=== PATIENT | male | born 1965 | race Caucasian/White ===

== ENCOUNTER 2017-03-15 09:29 | Inpatient (IN) ==
[2017-03-15 10:24] LABS: Mean Cell Volume 101.8 fL (80.0-100.0); Mean Corpuscular Hemoglobin 33.6 pg (26.0-34.0); Platelet Count 408 K/mcL (140-440); RBC 3.38 M/mcL (4.50-5.90); Red Cell Distribution Width 20.5 % (11.5-14.5)
--- NOTE | 2017-03-15 10:46 | Emergency Department Note ---
Fever HPI - General Chief Complaint: Fever Stated Complaint: fever Time Seen by Provider: 03/15/17 09:46 Source: patient, family, EMS Mode of arrival: EMS Limitations: physical limitation - History of Present Illness HPI Narrative: 51-year-old male patient of Dr. Guadarrama. Complaining of weakness since the last 24 hours. He was supposed to have dialysis this morning at 4 AM however he was too weak to go to dialysis. Denies any cough, denies sore throat no nasal congestion. Denies any urinary symptoms of urgency frequency or dysuria patient denies nausea vomiting there has been no diarrhea constipation no hematemesis no melena denies neck pain denies headache current temperature is is 102. - Related Data Home Medications Medication Instructions Recorded Confirmed alprazolam 1 mg tablet 1 mg PO TIDP PRN 12/31/15 02/10/17 HYDROcodone/APAP 10/325MG [[place] 1 - 2 tab PO Q6-8HP PRN 03/06/16 02/10/17 10/325Mg] Ondansetron HCl [Zofran] 4 mg PO Q4-6HP PRN 03/06/16 02/10/17 Torsemide [Demadex] 20 mg PO BID 03/06/16 02/10/17 fentaNYL [Fentanyl] 37.5 mcg TD Q72H PRN 03/06/16 02/10/17 morphine SULFATE [Morphine Sulfate 15 mg PO Q12 03/06/16 02/10/17 ER] traZODone HCL [Desyrel] 50 mg PO HS 03/06/16 02/10/17 oxyCODONE HCL [Oxycodone HCl] 10 mg PO ONCE 02/10/17 02/10/17 Previous Rx's Medication Instructions Recorded 0.9 % Sodium Chloride [Saline 10 ml IV Q8 syringe 02/13/16 Flush] ALPRAZolam [Xanax] 0.5 mg PO TIDP PRN #0 tablet 02/13/16 Acetaminophen [Tylenol] 650 mg PO Q6HP PRN #0 tablet 02/13/16 Albuterol Sulfate [Ventolin] 2 puff INH Q4-6HP PRN #0 inhaler 02/13/16 Heparin 5,000 unit SQ Q12 vial 02/13/16 Pantoprazole [Protonix] 40 mg PO QAMAC tablet 02/13/16 Sevelamer [Renvela] 800 mg PO TIDCC tablet 02/13/16 fentaNYL [Duragesic] 50 mcg TOPICAL Q72H patch 02/13/16 Vancomycin/0.9 % Sod Chloride 1.5 gm IV Q48 #7 plast..bag 03/09/16 [Vanco 1.5 gm/500 ml-0.9% NaCl] amlodipine 10 mg tablet 10 mg PO QDAY #30 tab 03/08/17 Allergies Allergy/AdvReac Type Severity Reaction Status Date / Time Iodinated Contrast Media - Allergy Intermediate Unknown Verified 06/08/16 15:19 Oral and [Iodinated Contrast Media - IV Dye] iodine Allergy Intermediate Unknown Verified 06/08/16 15:19 Penicillins Allergy Intermediate Unknown Verified 06/08/16 15:19 Review of Systems All systems ED: reviewed and negative except as stated. Constitutional: Reports: fever, chills Eyes: Denies: eye pain ENT ED: Denies: ear pain Cardiovascular: Denies: chest pain Respiratory: Denies: cough Gastrointestinal: Denies: abdominal pain Genitourinary: Denies: urgency Musculoskeletal: Denies: back pain Integumentary: Denies: rash Neurological: Reports: weakness. Denies: headache, numbness, paresthesias, confusion, abnormal gait, vertigo Psychiatric: Denies: anxiety, depression Endocrine: Denies: fatigue Hematological/Lymphatic: Denies: easy bleeding Allergic/Immunologic: Denies: facial swelling Fever PMH - Past Medical History Medical history: Reports: arthritis, CHF, COPD, diabetes, hypertension, renal disease, other (end-stage renal disease on dialysis. Peripheral neuropathy. Immune. Anemia. Systemic inflammatory response syndrome. Previous noncompliance with renal dialysis. Amyloidosis organic brain syndrome. Pneumonia.) Psychiatric history: Reports: anxiety Family history: Reports: non-contributory - Social History smoking status: Former smoker Alcohol use: Reports: Heavy (says, 2-3 ounces A day, but not recently) Drug use: Reports: none, methamphetamine Physical Exam - General Limitations: physical limitation General appearance: alert - Head Head exam: atraumatic - Eye Eye exam: Present: normal appearance, PERRL - ENT ENT exam: normal exam, normal oropharynx - Neck Neck exam: Present: normal inspection, full ROM - Chest Chest inspection: Present: normal inspection, symmetric chest wall rise - Respiratory Respiratory exam: Present: normal lung sounds bilaterally - Cardiovascular Cardiovascular exam: Present: regular rate, normal rhythm - Abdominal Exam Abdominal exam: Present: soft. Absent: distention, tenderness, guarding - Extremities Exam Extremities exam: Present: normal inspection, full ROM - Back Exam Back exam: Present: normal inspection, full ROM - Neurological Exam Neurological exam: Present: alert, oriented X3, CN II-XII intact Course Vital Signs Temperature 102.4 F H 03/15/17 09:29 Pulse Rate 112 H 03/15/17 09:29 Respiratory Rate 16 03/15/17 09:29 Blood Pressure 131/78 03/15/17 09:29 Pulse Oximetry (%) 94 03/15/17 09:29 Temperature 102.4 F H 03/15/17 09:29 Pulse Rate 88 03/15/17 10:58 Respiratory Rate 21 03/15/17 10:58 Blood Pressure 120/63 03/15/17 10:46 Pulse Oximetry (%) 95 03/15/17 10:58 Fever - MDM Narrative Medical decision making narrative: Dr. Guadarrama here to evaluate as well. Patient to be put on vancomycin as he is allergic to Zosyn. It was 6.7 felt which is start the hyperkalemia protocol. Chest x-ray shows atelectasis. She recommended admission - Lab Data Result diagrams: 03/15/17 09:53 03/15/17 09:53 Lab Results 03/15/17 03/15/17 03/15/17 Range/Units 09:53 09:53 09:53 WBC 13.0 H (4.5-11.0) K/mcL RBC 3.38 L (4.50-5.90) M/mcL Hgb 11.4 L (13.5-16.5) g/dL Hct 34.4 L (41.0-55.0) % MCV 101.8 H (80.0-100.0) fL MCH 33.6 (26.0-34.0) pg MCHC 33.0 (31.0-36.0) g/dL RDW 20.5 H (11.5-14.5) % Plt Count 408 (140-440) K/mcL MPV 7.6 (7.4-10.4) fL Total Counted 100 Seg Neutrophils % 62 (38-78) % Band Neutrophils % 6 (0-10) % Lymphocytes % 6 L (15-49) % Monocytes % (Manual) 20 H (1-12) % Eosinophils % (Manual) 6 (0-7) % Platelet Estimate Normal (NORMAL) RBC Morphology Abnorm A (NORMAL) Anisocytosis 1+ A (NONE SEEN) Macrocytosis 1+ A (NONE SEEN) VBG Lactic Acid 0.9 (0.5-2.2) mmol/L Sodium 131 L (133-145) mmol/L Potassium 6.5 H* (3.3-5.1) mmol/L Chloride 91 L (96-108) mmol/L Carbon Dioxide 20 L (22-30) mmol/L Anion Gap 20.0 H (8-16) BUN 75 H (6-20) mg/dl Creatinine 7.6 H* (0.7-1.2) mg/dl GFR Calculation 7 Glucose 80 (70-105) mg/dL Calcium 8.2 L (8.6-10.4) mg/dl Total Bilirubin 0.4 (0.0-1.0) mg/dL AST 7 (0-37) U/l ALT 11 (0-40) U/l Alkaline Phosphatase 123 H (39-117) U/L Total Protein 5.6 L (5.9-8.4) gm/dL Albumin 3.1 L (3.2-5.2) gm/dL Globulin 2.5 (2.2-3.7) gm/dL Albumin/Globulin Ratio 1.2 (1.0-2.3) Disposition Clinical Impression: Chronic renal failure, Sepsis Disposition: Xfer As Inpt ([facility]) Condition: Fair Referrals: Teodora Guadarrama MD [Primary Care Provider] -
[2017-03-15 10:51] LABS: ALT/SGPT 11 U/l (0-40); Albumin 3.1 gm/dL (3.2-5.2); Albumin/Globulin Ratio 1.2 (1.0-2.3); Alkaline Phosphatase 123 U/L (39-117); Blood Urea Nitrogen 75 mg/dl (6-20)
[2017-03-15] MEDS ORDERED: 0.9 % SODIUM CHLORIDE 1,000 ML IV ONE (10:58)
[2017-03-15] MEDS ORDERED: SODIUM POLYSTYRENE SULFONATE 15 GM/60 ML SUSPENSION PO ONE ×2 (11:01→11:15)
--- NOTE | 2017-03-15 11:10 | XRay Report ---
CLINICAL INFORMATION: Chest pain COMPARISON: 06/08/2016 FINDINGS: The heart is upper limits of normal in size. Mediastinum and pulmonary vessels are normal. There is minor atelectasis noted in the right base. Moderate bibasilar airspace disease likely reflects atelectasis. No effusion IMPRESSION: Moderate bibasilar airspace disease - likely atelectasis. If pneumonia is suspected, suggest two-view follow-up chest x-ray one to two days Interpreted and Authenticated by: Jason Cruz 03/15/17
[2017-03-15 11:11] LABS: Anisocytosis 1+ (NONE SEEN); Band Neutrophils % 6 % (0-10); Eosinophils % (Manual) 6 % (0-7); Lymphocytes % 6 % (15-49); Macrocytosis 1+ (NONE SEEN); Monocytes % (Manual) 20 % (1-12); Platelet Estimate NORMAL (NORMAL); RBC Morphology ABNORM (NORMAL); Segmented Neutrophils % 62 % (38-78)
[2017-03-15] MEDS ORDERED: DEXTROSE 50% 50 ML VIAL IV ONE ×7 (11:15→16:24)
[2017-03-15] MEDS ORDERED: INSULIN REGULAR, HUMAN 1 UNIT/0.01 ML UNIT IV ONE (11:16)
[2017-03-15] MEDS ORDERED: CALCIUM CHLORIDE 1,000 MG/10 ML SYRINGE IV ONE ×2 (11:16→12:00)
[2017-03-15] MEDS ORDERED: SODIUM POLYSTYRENE SULFONATE 15 GM/60 ML SUSPENSION ONE (11:26)
[2017-03-15] MEDS ORDERED: FUROSEMIDE 40 MG/4 ML VIAL IV ONE (11:53)
[2017-03-15] MEDS ORDERED: IPRATROPIUM/ALBUTEROL 3 ML AMPUL.NEB NEB ONE (11:54)
[2017-03-15] MEDS ORDERED: IPRATROPIUM/ALBUTEROL 3 ML AMPUL.NEB NEB PRN (13:35)
[2017-03-15] MEDS ORDERED: NALOXONE HCL 0.4 MG/ML VIAL IV PRN (13:35)
[2017-03-15] MEDS ORDERED: HYDROcodone/APAP 5/325MG TABLET PO PRN (13:35)
[2017-03-15] MEDS ORDERED: ONDANSETRON 4 MG/2 ML VIAL IV PRN (13:35)
[2017-03-15] MEDS ORDERED: VANCOMYCIN PER PHARMACY IV ONE (13:35)
[2017-03-15] MEDS ORDERED: ACETAMINOPHEN 325 MG TABLET PO PRN (13:35)
[2017-03-15] MEDS ORDERED: VANCOMYCIN 1,000 MG in 0.9 % SODIUM CHLORIDE 250 ML IV ONE (14:30)
--- NOTE | 2017-03-15 17:31 | Nephrology Consult Note ---
History of Present Illness - Reason for Consult Patient information: Note initiated : 03/15/17 at 5:27 pm Service Date, if different from initiated Date: [] Patient: Jamal Blanc a 51 y/o M admitted on 03/15/17 for fever. Chief Complaint: [] Consult date: 03/15/17 end stage renal disease, hyperkalemia Requesting physician: Melo Keller - Chief Complaint weakness - History of Present Illness Mr Guanaco is a 51 y/o pleasant white male with PMH of HTN, ESRD on HD, multiple myeloma and multiple other medical issues who is admitted with fever, hyperkalemia Patient c/o having tremors this am and weakness in upper and lower extremity and hence presented to ER He states that he was fine yesterday He took his regular oxycodone this pm and then woke up at night and had severe back pain and took 2 more oxycodones He also c/o fever since this am with some cough No diarrhea, nausea, vomiting does have LE edema and edema on the right UE he denies CP No urinary symptoms no sick contacts Review of Systems All systems PM: reviewed and no additional remarkable complaints except as stated (as in HPI) Past History Past medical history: HTN ESRD on HD multiple myeloma/ amyloidosis anemia of chronic disease renal osteodystrophy hyponatremia gout Past surgical history: h/o TCC placement h/o AVF surgery H/O Total hip replacement for patholocial fracture from MM Past family history: MOTHER HAS H/O ORAL CANCER Past social history: drinks ETOH occ chews tobacco Medications and Allergies Home Medications Medication Instructions Recorded Confirmed Type alprazolam 1 mg tablet 1 mg PO TIDP PRN 12/31/15 02/10/17 History 0.9 % Sodium Chloride [Saline 10 ml IV Q8 syringe 02/13/16 02/10/17 Rx Flush] ALPRAZolam [Xanax] 0.5 mg PO TIDP PRN #0 tablet 02/13/16 02/10/17 Rx Acetaminophen [Tylenol] 650 mg PO Q6HP PRN #0 tablet 02/13/16 02/10/17 Rx Albuterol Sulfate [Ventolin] 2 puff INH Q4-6HP PRN #0 inhaler 02/13/16 02/10/17 Rx Heparin 5,000 unit SQ Q12 vial 02/13/16 02/10/17 Rx Pantoprazole [Protonix] 40 mg PO QAMAC tablet 02/13/16 02/10/17 Rx Sevelamer [Renvela] 800 mg PO TIDCC tablet 02/13/16 02/10/17 Rx fentaNYL [Duragesic] 50 mcg TOPICAL Q72H patch 02/13/16 02/10/17 Rx HYDROcodone/APAP 10/325MG [[place] 1 - 2 tab PO Q6-8HP PRN 03/06/16 02/10/17 History 10/325Mg] Ondansetron HCl [Zofran] 4 mg PO Q4-6HP PRN 03/06/16 02/10/17 History Torsemide [Demadex] 20 mg PO BID 03/06/16 02/10/17 History fentaNYL [Fentanyl] 37.5 mcg TD Q72H PRN 03/06/16 02/10/17 History morphine SULFATE [Morphine Sulfate 15 mg PO Q12 03/06/16 02/10/17 History ER] traZODone HCL [Desyrel] 50 mg PO HS 03/06/16 02/10/17 History Vancomycin/0.9 % Sod Chloride 1.5 gm IV Q48 #7 plast..bag 03/09/16 02/10/17 Rx [Vanco 1.5 gm/500 ml-0.9% NaCl] oxyCODONE HCL [Oxycodone HCl] 10 mg PO ONCE 02/10/17 02/10/17 History amlodipine 10 mg tablet 10 mg PO QDAY #30 tab 03/08/17 Rx Allergies Allergy/AdvReac Type Severity Reaction Status Date / Time Iodinated Contrast Media - Allergy Intermediate Unknown Verified 06/08/16 15:19 Oral and [Iodinated Contrast Media - IV Dye] iodine Allergy Intermediate Unknown Verified 06/08/16 15:19 Penicillins Allergy Intermediate Other Verified 03/15/17 14:56 Exam - Vital Signs Vital signs: Temp Pulse Resp BP Pulse Ox 98.2 F 79 18 126/62 97 03/15/17 16:05 03/15/17 17:03 03/15/17 16:00 03/15/17 17:03 03/15/17 16:00 - General Appearance General appearance: appears started age, chronically ill EENT: mucous membranes moist Neck: no JVD Respiratory: clear Cardiology: mid-systolic murmur, edema, normal S1, normal S2 Gastrointestinal: no tenderness, no guarding, no masses Integumentary: no rash, warm and dry Neurologic: alert and oriented x3 (myclonic jerks +) Musculoskeletal: no erythema, no cyanosis Psychiatric: mood/affect appropriate Results - Lab Results 03/15/17 09:53 03/15/17 09:53 Most recent lab results Calcium 8.2 mg/dl (8.6-10.4) L 03/15/17 09:53 Assessment and Plan (1) ESRD (end stage renal disease) on dialysis Patient with fluid overload and severe hyperkalemia today hyperkalemia protocol initiated in ER Patient subsequently dialysed for 4 hrs using QB 400ml/min and Qd 700ml/min, revaclear max dialyser, 2k/2.5Ca dialysate, UF goal of 1-2L as tolerated will follow daily for dialysis needs Please dose meds per dialysis Fevere: ? has PNA on ceftazidine and vancomycin shakes: ? has myoclonic jerks secondary to overuse of oxycodone, reduced much since this am discussed with him and his parents to limit the use of oxycodone Will follow along appreciate hospitalist help in managing this patient Status: Acute
--- NOTE | 2017-03-15 17:31 | Internal Med History&Physical ---
Medical - H&P: [facility] Patient information: Note initiated : 03/15/17 at 5:29 pm Service Date, if different from initiated Date: [] Patient: Jamal Blanc a 51 y/o M admitted on 03/15/17 for fever. Chief Complaint: [] History of present illness: Mr. Blanc is a 51 year old male with h/o HD via a fistula on the left arm, multiple myeloma, amylodosis, presents to the ER with complaints of fever x 2 days. The patient had his HD on Tuesday, was ok then, since day before yesterday he suddenly noticed chills and rigors, weakness. He was in bed the whole day yesterday, since his condition was not improving, and he remained weak with chills he was brought to the ER. He was also febrile during this periods. In the ER the patient was noted to be febrile, with elevated wbc count. The patient has chr cough but denies any change in his condition.he still makes urine, but denies any urinary complaints, he has chr loose stools, denisse any new diarrhea, no sinus issues. no headaches or vison changes, no skin redness or rashes. the patient missed his HD session today, his electrolytes are abnl with hyponatremia and hyperkalemia. He will be admitted to the hospital for further management, Nephrology consulted. cxr shows atelectasis vs pna, All systems: reviewed and no additional remarkable complaints except as stated ( as mentioned in HPI) Medical - H&P: H Medical history: Medical History (Last Updated 03/15/17 @ 11:53 by Melo Keller MD) Sepsis (Acute) Anemia (Acute) Gram-positive bacteremia (Acute) Infection, vascular device (Acute) Fever of unknown origin (Acute) Sepsis (Acute) Hypocalcemia (Acute) Allergic reaction (Acute) Anemia (Acute) Muscular disease (Acute) End stage renal disease (Chronic) Hyponatremia with excess extracellular fluid volume (Acute) Vertigo (Acute) Medication withdrawal (Acute) Renal failure (Acute) Nocturnal muscle cramp (Acute) Neuropathy, peripheral (Acute) Chronic kidney disease, stage IV (severe) (Acute) Chronic hyponatremia (Acute) Hyponatremia (Acute) Congestive heart failure (Acute) Fluid overload (Acute) Anemia (Chronic) SIRS (systemic inflammatory response syndrome) (Acute) ESRD (end stage renal disease) on dialysis (Acute) Heart failure with acute decompensation, type unknown (Acute) Myalgia (Acute) Noncompliance with renal dialysis (Acute) Edema (Acute) Kidney failure (Acute) Pain (Acute) Chronic painful diabetic neuropathy (Acute) Dependence on renal dialysis (Acute) Chronic renal failure (Chronic) CHF (congestive heart failure) (Chronic) Right pulmonary infiltrate on CXR (Acute) Pneumonia (Acute) Organic brain syndrome (Chronic) Paresthesia (Chronic) Pain of hand (Chronic) Chronic Kidney Disease (Chronic) Elevated erythrocyte sedimentation rate (Chronic) Antinuclear factor positive (Chronic) Inflammatory arthritis (Chronic) Anxiety disorder (Chronic) Tobacco dependence (Chronic) Reactive airway disease (Chronic) Acute kidney failure (Acute) Hyperkalemia (Resolved) Hypermagnesemia (Resolved) Hyponatremia (Resolved) Hypertension (Chronic) Anemia of chronic disease (Chronic) Hyperphosphatemia (Acute) Hypocalcemia (Acute) Fever (Acute) Hyponatremia (Acute) Metabolic acidosis (Resolved) Surgical history: Past Surgical History (Last Updated 02/18/16 @ 15:06 by Sarita Palafox) History of colonoscopy (Chronic 01/30/16) Family history: reviewed and not pertinent Medical - H&P: Meds Home Medications Medication Instructions Recorded Confirmed Type alprazolam 1 mg tablet 1 mg PO TIDP PRN 12/31/15 02/10/17 History 0.9 % Sodium Chloride [Saline 10 ml IV Q8 syringe 02/13/16 02/10/17 Rx Flush] ALPRAZolam [Xanax] 0.5 mg PO TIDP PRN #0 tablet 02/13/16 02/10/17 Rx Acetaminophen [Tylenol] 650 mg PO Q6HP PRN #0 tablet 02/13/16 02/10/17 Rx Albuterol Sulfate [Ventolin] 2 puff INH Q4-6HP PRN #0 inhaler 02/13/16 02/10/17 Rx Heparin 5,000 unit SQ Q12 vial 02/13/16 02/10/17 Rx Pantoprazole [Protonix] 40 mg PO QAMAC tablet 02/13/16 02/10/17 Rx Sevelamer [Renvela] 800 mg PO TIDCC tablet 02/13/16 02/10/17 Rx fentaNYL [Duragesic] 50 mcg TOPICAL Q72H patch 02/13/16 02/10/17 Rx HYDROcodone/APAP 10/325MG [[place] 1 - 2 tab PO Q6-8HP PRN 03/06/16 02/10/17 History 10/325Mg] Ondansetron HCl [Zofran] 4 mg PO Q4-6HP PRN 03/06/16 02/10/17 History Torsemide [Demadex] 20 mg PO BID 03/06/16 02/10/17 History fentaNYL [Fentanyl] 37.5 mcg TD Q72H PRN 03/06/16 02/10/17 History morphine SULFATE [Morphine Sulfate 15 mg PO Q12 03/06/16 02/10/17 History ER] traZODone HCL [Desyrel] 50 mg PO HS 03/06/16 02/10/17 History Vancomycin/0.9 % Sod Chloride 1.5 gm IV Q48 #7 plast..bag 03/09/16 02/10/17 Rx [[place]anco 1.5 gm/500 ml-0.9% NaCl] oxyCODONE HCL [Oxycodone HCl] 10 mg PO ONCE 02/10/17 02/10/17 History amlodipine 10 mg tablet 10 mg PO QDAY #30 tab 03/08/17 Rx Allergies Allergy/AdvReac Type Severity Reaction Status Date / Time Iodinated Contrast Media - Allergy Intermediate Unknown Verified 06/08/16 15:19 Oral and [Iodinated Contrast Media - IV Dye] iodine Allergy Intermediate Unknown Verified 06/08/16 15:19 Penicillins Allergy Intermediate Other Verified 03/15/17 14:56 Medical - H&P: Exam - Constitutional Vitals: Temp Pulse Resp BP Pulse Ox 98.2 F 79 18 126/62 97 03/15/17 16:05 03/15/17 17:03 03/15/17 16:00 03/15/17 17:03 03/15/17 16:00 Exam: GENERAL: The patient is a well-developed, well-nourished in no apparent distress. Is alert and oriented x3. VITAL SIGNS: Reviewed and as noted elsewhere. HEENT: Head is normocephalic and atraumatic. Extraocular muscles are intact. Pupils are equal, round, and reactive to light. Nares appeared normal. Mouth appears any without lesions. Mucous membranes are moist. NECK: Normal to inspection, Supple, No lymphadenopathy or thyromegaly. LUNGS: Air entry equal on both sides, no wheezing, crackles or rhonchi noted. No accessory muscles of respiration HEART: Regular rate and rhythm normal, S1 and S2 heard, no Gallop, S3 or Rub Noted, No Gross murmur heard. ABDOMEN: Soft, nontender, and nondistended. Positive bowel sounds. No hepatosplenomegaly was noted. EXTREMITIES: No cyanosis, clubbing, rash, lesions or edema. NEUROLOGIC: Cranial nerves II through XII are grossly intact. Motor and Sensory System Grossly Intact PSYCHIATRIC: Normal affect, Normal Mood. Appropriate Behavior. SKIN: No ulceration or wounds noted, No jaundice, No rash noted. Medical - H&P: Reslt - Labs CBC & Chem 7: 03/15/17 09:53 03/15/17 09:53 Medical - H&P: A/P - Narrative A/P Narrative: Health care associated pna: LIkely source of fever, treat with vancomycin and ceftazidime for now, (cover pseudomonas) Await cultures results, pt is chr non productive cough. ESRD on HD: Nephrology consulted, HD today Hyperkalemia: Medical management done by ER, pt was hypoglycemic in the hospital later needing glucose x2 Sepsis: Due to pna, but also has h/o coag neg staph last year. WIll wait blood cultures, on vanco and ceftazidime Multiple Mylenoma: Follows with Dr Wills, will resume meds once verified. DVT: Hep sq DIet: Renal diet Code: Full code. Medical - H&P: Qual - VTE Deep Vein Thrombosis/Pulmonary Embolism Present on Admission: No Social History - Tobacco smoking status: Smokeless tobacco - Tobacco Type tobacco type: smokeless tobacco - Alcohol alcohol intake frequency: holiday/special occasion only - Substance use substance use type: former substance user
[2017-03-15] MEDS: DEXTROSE 5% IV SCH (20:11)
[2017-03-15] MEDS: WATER IV SCH (20:11)
[2017-03-15] MEDS: CEFTAZIDIME IV SCH (20:11)
[2017-03-15] MEDS ORDERED: SENNOSIDES 1 TABLET PO PRN (21:00)
[2017-03-15] MEDS ORDERED: traZODone HCL 50 MG TABLET PO SCH (21:25)
[2017-03-15] MEDS: HEPARIN 5,000 UNIT/ML VIAL SQ SCH (21:27)
[2017-03-15] MEDS: ACYCLOVIR 400 MG TABLET PO SCH (23:17)
[2017-03-15] MEDS: CARVEDILOL 12.5 MG TABLET PO SCH (23:17)
[2017-03-15] MEDS: oxyCODONE HCL 5 MG TABLET PO PRN (23:17)
[2017-03-15] MEDS: GABAPENTIN 300 MG CAPSULE PO SCH (23:17)
[2017-03-16 06:14] LABS: ALT/SGPT 9 U/l (0-40); Albumin 2.5 gm/dL (3.2-5.2); Alkaline Phosphatase 99 U/L (39-117); Bilirubin,Direct < 0.2 mg/dL (0.0-0.3); Blood Urea Nitrogen 29 mg/dl (6-20); Gamma Glutamyl Transpeptidase 5 U/L (8-61); Magnesium 1.7 mg/dL (1.6-2.5); Uric Acid 3.4 mg/dL (2.5-8.0)
[2017-03-16 07:30] LABS: Basophils # (Auto) 0 K/mcL (0.0-0.3); Basophils % (Auto) 0.5 % (0.0-2.0); Eosinophils # (Auto) 0.3 K/mcL (0.0-0.7); Eosinophils % (Auto) 4.5 % (0.0-7.0); Granulocytes % (Auto) 59.9 % (38.0-78.0); Lymphocytes % (Auto) 13.1 % (15.5-49.0); Mean Cell Volume 102.4 fL (80.0-100.0); Mean Corpuscular HGB Conc 32.7 g/dL (31.0-36.0); Mean Corpuscular Hemoglobin 33.5 pg (26.0-34.0); Monocytes # (Auto) 1.6 K/mcL (0.1-0.9); Platelet Count 333 K/mcL (140-440); RBC 2.97 M/mcL (4.50-5.90); Red Cell Distribution Width 20.8 % (11.5-14.5)
[2017-03-16] MEDS ORDERED: PANTOPRAZOLE 40 MG TABLET PO SCH (07:30)
[2017-03-16] MEDS ORDERED: TORSEMIDE 10 MG TABLET PO SCH (08:00)
[2017-03-16] MEDS: HEPARIN 5,000 UNIT/ML VIAL SQ SCH ×2 (08:37→20:59)
[2017-03-16] MEDS: GABAPENTIN 300 MG CAPSULE PO SCH ×2 (08:38→20:59)
[2017-03-16] MEDS: ACYCLOVIR 400 MG TABLET PO SCH ×2 (08:38→20:59)
[2017-03-16] MEDS: DEXTROSE 5% IV SCH (08:39)
[2017-03-16] MEDS: CEFTAZIDIME IV SCH (08:39)
[2017-03-16] MEDS: WATER IV SCH (08:39)
[2017-03-16] MEDS: predniSONE 10 MG TABLET PO SCH ×2 (08:39→10:12)
[2017-03-16] MEDS: CARVEDILOL 12.5 MG TABLET PO SCH ×2 (08:39→16:58)
--- NOTE | 2017-03-16 08:42 | Nephrology Progress Note ---
Subjective Patient information: Note initiated : 03/16/17 at 8:39 am Service Date, if different from initiated Date: [] Patient: Jamal Blanc 51 y/o M admitted on 03/15/17 for fever. Chief Complaint: [] Principal diagnosis: fever/hyperkalemia Interval history: Patient dialysed yesterday with 2L UF removal He is c/o cough no SOB, CP, dizziness He has Right UE edema, no edema on other extremities no further episodes of fever, blood cultures are pending Pertinent ROS: as above Objective - Vital Signs Vital signs: Vital Signs Temp Pulse Pulse Resp BP BP Pulse Ox 03/16/17 07:24 92 03/16/17 04:00 97.5 F 73 16 129/50 90 03/16/17 00:01 153/59 03/15/17 22:31 145/54 03/15/17 22:17 136/65 03/15/17 20:31 149/64 03/15/17 20:01 142/61 03/15/17 20:00 98.7 F 89 92 H 18 142/61 142/64 95 03/15/17 19:32 76 133/59 03/15/17 19:31 133/59 03/15/17 19:01 129/67 03/15/17 19:00 88 129/67 03/15/17 18:31 127/59 03/15/17 18:30 76 127/59 03/15/17 18:01 131/81 03/15/17 17:56 79 131/81 03/15/17 17:31 141/82 03/15/17 17:30 87 141/82 03/15/17 17:03 79 126/62 03/15/17 17:01 126/62 03/15/17 16:46 126/63 03/15/17 16:38 133/61 03/15/17 16:35 80 133/61 03/15/17 16:31 91/48 03/15/17 16:16 135/61 03/15/17 16:05 98.2 F 84 147/70 03/15/17 16:01 147/70 03/15/17 16:00 98.5 F 86 18 147/70 97 03/15/17 15:46 157/64 03/15/17 15:31 146/67 03/15/17 15:16 132/70 03/15/17 15:01 128/63 03/15/17 14:46 138/62 03/15/17 14:31 119/50 03/15/17 14:16 107/54 03/15/17 14:07 80 114/91 94 03/15/17 13:35 97.7 F 80 18 114/91 93 Intake and Output 03/15/17 03/16/17 03/16/17 21:59 05:59 13:59 Intake Total 240 / 240 240 / 240 Output Total 66504 / [id number] Balance -43437 / -43583 240 / 240 Intake: Oral 240 / 240 240 / 240 Output: Hemodialysis UF 72126 / [id number] Other: Meal Lunch Percent of Meal Consumed 100% Feeding Ability Independent # Bowel Movements 2 # of times incontinent of 1 Bowels Weight 172 lb Intake & Output: Intake & Output 03/15/17 03/16/17 03/16/17 21:59 05:59 13:59 Intake Total 240 / 240 240 / 240 Output Total 32247 / 66864 Balance -97954 / -23729 240 / 240 Weight 172 lb Intake: Oral 240 / 240 240 / 240 Output: Hemodialysis UF 28860 / 53493 Other: Meal Lunch Percent of Meal Consumed 100% Feeding Ability Independent # Bowel Movements 2 # of times incontinent of 1 Bowels - General Appearance General appearance: appears started age, chronically ill EENT: mucous membranes moist Neck: no JVD Cardiology: no edema (edema only in right UE, has AVF in that arm), normal S1, normal S2 Gastrointestinal: no tenderness, no guarding Integumentary: no rash, warm and dry Neurologic: alert and oriented x3 Musculoskeletal: no erythema Psychiatric: mood/affect appropriate - Lab 03/16/17 04:10 03/16/17 04:10 Most recent lab results Calcium 7.5 mg/dl (8.6-10.4) L 03/16/17 04:10 Phosphorus 4.3 mg/dL (2.7-4.5) 03/16/17 04:10 Magnesium 1.7 mg/dL (1.6-2.5) 03/16/17 04:10 Assessment and Plan (1) ESRD (end stage renal disease) on dialysis no indication for dialysis today concerned about right UE edema, no edema in other extremities will plan on getting AVF US today mild anemia: on aranesp per oncology, will monitor Fever/pneumonia: on antibiotic, stable cultures pending Appreciate hospitalist help in managing this patient Status: Acute
[2017-03-16] MEDS ORDERED: ASPIRIN 325 MG ENTERIC COATED TABLET PO SCH (09:00)
[2017-03-16] MEDS ORDERED: amLODIPine 10 MG TABLET PO SCH (09:00)
[2017-03-16] MEDS: oxyCODONE HCL 5 MG TABLET PO PRN ×3 (09:15→20:59)
[2017-03-16] MEDS ORDERED: IPRATROPIUM/ALBUTEROL 3 ML AMPUL.NEB NEB PRN (09:53)
[2017-03-16] MEDS ORDERED: ACETAMINOPHEN 325 MG TABLET PO PRN (09:53)
[2017-03-16] MEDS ORDERED: HYDROcodone/APAP 5/325MG TABLET PO PRN (09:53)
[2017-03-16] MEDS ORDERED: SENNOSIDES 1 TABLET PO PRN (09:53)
[2017-03-16] MEDS ORDERED: NALOXONE HCL 0.4 MG/ML VIAL IV PRN (09:53)
[2017-03-16] MEDS ORDERED: fentaNYL 100 MCG PATCH TOPICAL SCH ×2 (10:00)
[2017-03-16] MEDS: ONDANSETRON 4 MG/2 ML VIAL IV PRN ×2 (10:10→19:38)
[2017-03-16 10:55] LABS: Vancomycin,Random 17.3 ug/ml
--- NOTE | 2017-03-16 13:54 | Internal Med Progress Note ---
Medical - PN: Subj Patient information: Note initiated : 03/16/17 at 1:52 pm Service Date, if different from initiated Date: [] Patient: Jamal Blanc a 51 y/o M admitted on 03/15/17 for Fever/Chronic Renal Failure, Sepsis. Chief Complaint: [] Interval history: Mr. Blanc is a 51 year old male with h/o HD via a fistula on the left arm, multiple myeloma, amylodosis, presents to the ER with complaints of fever x 2 days. The patient had his HD on Tuesday, was ok then, since day before yesterday he suddenly noticed chills and rigors, weakness. He was in bed the whole day yesterday, since his condition was not improving, and he remained weak with chills he was brought to the ER. He was also febrile during this periods. In the ER the patient was noted to be febrile, with elevated wbc count. The patient has chr cough but denies any change in his condition.he still makes urine, but denies any urinary complaints, he has chr loose stools, denisse any new diarrhea, no sinus issues. no headaches or vison changes, no skin redness or rashes. the patient missed his HD session today, his electrolytes are abnl with hyponatremia and hyperkalemia. He will be admitted to the hospital for further management, Nephrology consulted. cxr shows atelectasis vs pna, 03/16: Patient seen and examined, no fever overnight, no new complaints, tolerating po well. Pertinent ROS: Denies headache, dizziness Denies chest pain, palpitations Denies cough or shortness of breath Denies abdominal pain, nausea or vomiting. - Constitutional Vitals: Vital Signs Temp Pulse Resp BP Pulse Ox 98.8 F 73 16 100/55 90 03/16/17 11:38 03/16/17 04:00 03/16/17 11:38 03/16/17 11:38 03/16/17 11:38 Period Temp Pulse Resp BP Sys/Rossi Pulse Ox Last 24 Hr 97.5 F-100.7 F 73-92 16-18 91-158/48-91 90-97 Intake and Output 03/15/17 03/16/17 03/16/17 21:59 05:59 13:59 Intake Total 290 / 290 240 / 240 Output Total 46922 / 15789 Balance -58976 / -74454 240 / 240 Weight 172 lb Intake & Output: Intake & Output 03/15/17 03/16/17 03/16/17 21:59 05:59 13:59 Intake Total 290 / 290 240 / 240 Output Total 73862 / 56652 Balance -23084 / -90416 240 / 240 Weight 172 lb Intake: IV 50 / 50 Fortaz 1 gm In Dextrose 5 50 / 50 % in Water 50 ml @ 100 mls/hr IV DAILY NOELLE Rx#: [id number] Oral 240 / 240 240 / 240 Output: Hemodialysis UF 38965 / 27470 Other: Meal Lunch Percent of Meal Consumed 100% Feeding Ability Independent # Bowel Movements 2 # of times incontinent of 1 Bowels Exam: Constitutional; Afebrile, cooperative, alert, not in distress. Eyes- No icterus, , No periorbital swelling Ears- Ext ear normal, hearing normal to conversation. Neck- Midline trachea, supple Respiratory system: Air Entry equal on both sides, No crackles or wheezing, no rhonchi. CVS- Rate rhythm regular, S1,S2 heard, no gallop, no rub. 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 Left arm swelling chronic Medical - PN: Obj Da - Labs CBC & Chem 7: 03/16/17 04:10 03/16/17 04:10 Labs: Abnormal Lab Results 03/16/17 03/16/17 04:10 04:10 RBC 2.97 L Hgb 9.9 L Hct 30.4 L MCV 102.4 H RDW 20.8 H Lymph % (Auto) 13.1 L [place] % (Auto) 22.0 H Lymph # 1.0 L [place] # 1.6 H Chloride 92 L BUN 29 H Creatinine 4.4 H Calcium 7.5 L GGT 5 L Total Protein 4.9 L Albumin 2.5 L Meds: Medications Acetaminophen (Tylenol) 650 mg PO Q6HP PRN PRN Reason: PAIN/FEVER > 101 Acetaminophen/Hydrocodone Bitart ([place] 5/325mg) 1 tab PO Q4HP PRN PRN Reason: Pain Acyclovir (Zovirax) 400 mg PO BID [facility] Albuterol/Ipratropium (Duoneb) 3 ml NEB Q4HRT PRN PRN Reason: Shortness Of Breath Or Wheezing Amlodipine Besylate (Norvasc) 10 mg PO QDAY [facility] Aspirin (Ecotrin) 325 mg PO DAILY [facility] Carvedilol (Coreg) 25 mg PO BIDCC [facility] Diagnostic Test (Pha) (Accu-Chek) 1 each FS PRN PRN PRN Reason: Hypoglycemia Fentanyl (Duragesic) 100 mcg TOPICAL Q72H [facility] Last Admin: 03/16/17 10:10 Dose: 100 mcg Gabapentin (Neurontin) 300 mg PO BID [facility] Heparin Sodium (Porcine) (Heparin) 5,000 unit SQ Q12 [facility] Ceftazidime 1 gm/ Dextrose 50 mls @ 100 mls/hr IV Q24H [facility] Naloxone HCl (Narcan) 0.1 mg IV Q2MIN PRN PRN Reason: Opiate Reversal Ondansetron HCl (Zofran) 4 mg IV Q4HP PRN PRN Reason: Nausea And Vomiting Last Admin: 03/16/17 10:10 Dose: 4 mg Oxycodone HCl (Roxicodone) 10 mg PO Q3HP PRN PRN Reason: Pain Pantoprazole Sodium (Protonix) 40 mg PO QAMAC [facility] Linaclotide [Linzess (] 290 Mcg Cap) 1 dose PO DAILY [facility] Prednisone (Prednisone) 10 mg PO TuThSa@0800 [facility] Senna (Senokot) 2 tab PO HSP PRN PRN Reason: Constipation Torsemide (Demadex) 20 mg PO BIDD [facility] Trazodone HCl (Desyrel) 50 mg PO HS [facility] Medical - PN: A/P - Time Spent With Patient Total time spent is greater than 50% in coordination of care (as documented) at patient's floor/unit and/or counseling patient: - Narrative A/P Narrative: A/P Health care associated pna: Likely source of fever, treat with vancomycin and ceftazidime for now, (cover pseudomonas) Await cultures results, pt is chr non productive cough. repeat X ray today. procalcitonin is high. ESRD on HD: Nephrology consulted, HD done, HD again likely tomorrow, appreciate renal consult. Hyperkalemia: resolved Sepsis: Due to pna, but also has h/o coag neg staph last year. resolved, await microbiology Multiple Mylenoma: Follows with Dr Elma, DVT: Hep sq DIet: Renal diet Code: Full code Medical - PN: Qual - VTE Deep Vein Thrombosis/Pulmonary Embolism Present on Admission: No
--- NOTE | 2017-03-16 14:31 | XRay Report ---
CLINICAL INFORMATION: Pneumonia COMPARISON: 03/15/2017 FINDINGS: Heart size, mediastinum and pulmonary vessels are normal. Disc atelectasis noted in the right upper lobe. No definite infiltrate or effusion. Bones soft tissues normal. IMPRESSION: Discoid atelectasis right upper lobe. No definite infiltrate. Interpreted and Authenticated by: Jason Cruz 03/16/17
[2017-03-16] MEDS: TORSEMIDE 10 MG TABLET PO SCH (16:58)
[2017-03-16] MEDS ORDERED: traZODone HCL 50 MG TABLET PO SCH ×2 (21:00)
[2017-03-17] MEDS ORDERED: PANTOPRAZOLE 40 MG TABLET PO SCH (07:30)
[2017-03-17] MEDS: CARVEDILOL 12.5 MG TABLET PO SCH ×2 (07:34→17:44)
[2017-03-17] MEDS: TORSEMIDE 10 MG TABLET PO SCH ×2 (07:35→17:43)
[2017-03-17] MEDS: oxyCODONE HCL 5 MG TABLET PO PRN ×2 (07:42→18:48)
[2017-03-17] MEDS ORDERED: predniSONE 10 MG TABLET PO SCH (08:00)
[2017-03-17 08:27] LABS: Basophils # (Auto) 0.1 K/mcL (0.0-0.3); Basophils % (Auto) 0.8 % (0.0-2.0); Eosinophils # (Auto) 0.6 K/mcL (0.0-0.7); Eosinophils % (Auto) 8.5 % (0.0-7.0); Granulocytes % (Auto) 54.7 % (38.0-78.0); Lymphocytes # (Auto) 1.2 K/mcL (1.5-4.8); Lymphocytes % (Auto) 15.9 % (15.5-49.0); Mean Cell Volume 102.5 fL (80.0-100.0); Mean Corpuscular HGB Conc 32.8 g/dL (31.0-36.0); Mean Corpuscular Hemoglobin 33.7 pg (26.0-34.0); Monocytes # (Auto) 1.5 K/mcL (0.1-0.9); Monocytes % (Auto) 20.1 % (1.0-12.0); Platelet Count 315 K/mcL (140-440); Red Cell Distribution Width 20.7 % (11.5-14.5)
[2017-03-17 08:33] LABS: ALT/SGPT 9 U/l (0-40); Albumin 2.9 gm/dL (3.2-5.2); Albumin/Globulin Ratio 1.4 (1.0-2.3); Alkaline Phosphatase 89 U/L (39-117); Bilirubin,Direct < 0.2 mg/dL (0.0-0.3); Blood Urea Nitrogen 36 mg/dl (6-20); Gamma Glutamyl Transpeptidase 5 U/L (8-61); Magnesium 1.9 mg/dL (1.6-2.5); Uric Acid 5.4 mg/dL (2.5-8.0)
[2017-03-17] MEDS ORDERED: ASPIRIN 325 MG ENTERIC COATED TABLET PO SCH (09:00)
[2017-03-17] MEDS ORDERED: amLODIPine 10 MG TABLET PO SCH (09:00)
[2017-03-17] MEDS: ACYCLOVIR 400 MG TABLET PO SCH ×2 (09:34→21:19)
[2017-03-17] MEDS: GABAPENTIN 300 MG CAPSULE PO SCH ×2 (09:34→21:18)
[2017-03-17] MEDS: HEPARIN 5,000 UNIT/ML VIAL SQ SCH ×2 (09:34→21:18)
[2017-03-17] MEDS: DEXTROSE 5% IV SCH ×3 (09:41→18:02)
[2017-03-17] MEDS: WATER IV SCH ×3 (09:41→18:02)
[2017-03-17] MEDS: CEFTAZIDIME IV SCH ×3 (09:41→18:02)
--- NOTE | 2017-03-17 11:19 | Internal Med Progress Note ---
Medical - PN: Subj Patient information: Note initiated : 03/17/17 at 11:16 am Service Date, if different from initiated Date: [] Patient: Jamal Blanc a 51 y/o M admitted on 03/15/17 for Fever/Chronic Renal Failure, Sepsis. Chief Complaint: [] Interval history: Mr. Blanc is a 51 year old male with h/o HD via a fistula on the left arm, multiple myeloma, amylodosis, presents to the ER with complaints of fever x 2 days. The patient had his HD on Tuesday, was ok then, since day before yesterday he suddenly noticed chills and rigors, weakness. He was in bed the whole day yesterday, since his condition was not improving, and he remained weak with chills he was brought to the ER. He was also febrile during this periods. In the ER the patient was noted to be febrile, with elevated wbc count. The patient has chr cough but denies any change in his condition.he still makes urine, but denies any urinary complaints, he has chr loose stools, denisse any new diarrhea, no sinus issues. no headaches or vison changes, no skin redness or rashes. the patient missed his HD session today, his electrolytes are abnl with hyponatremia and hyperkalemia. He will be admitted to the hospital for further management, Nephrology consulted. cxr shows atelectasis vs pna, 03/16: Patient seen and examined, no fever overnight, no new complaints, tolerating po well. 03/17: Pt seen examined, no acute overnight events, patient denies any new concerns, had low grade temp yesterday AM, but overall is improving, Patient is due for HD this afternoon. His microbiology is negative. He is tolerating po diet well. Pertinent ROS: Denies headache, dizziness Denies chest pain, palpitations Denies cough or shortness of breath Denies abdominal pain, nausea or vomiting. - Constitutional Vitals: Vital Signs Temp Pulse Resp BP Pulse Ox 98.2 F 73 18 113/68 90 03/17/17 07:49 03/17/17 03:50 03/17/17 07:49 03/17/17 07:49 03/17/17 07:49 Period Temp Pulse Resp BP Sys/Rossi Pulse Ox Last 24 Hr 96.7 F-98.8 F 73-82 16-18 91-113/51-68 90-92 Intake and Output 03/16/17 03/17/17 03/17/17 21:59 05:59 13:59 Intake Total 120 / 120 350 / 350 Balance 120 / 120 350 / 350 Weight 170 lb Intake & Output: Intake & Output 03/16/17 03/17/17 03/17/17 21:59 05:59 13:59 Intake Total 120 / 120 350 / 350 Balance 120 / 120 350 / 350 Weight 170 lb Intake: Oral 120 / 120 350 / 350 Other: Meal Dinner Percent of Meal Consumed 100% Feeding Ability Independent Exam: Constitutional; Afebrile, cooperative, alert, not in distress. mildy puffy this AM Eyes- No icterus, , No periorbital swelling Ears- Ext ear normal, hearing normal to conversation. Neck- Midline trachea, supple Respiratory system: Air Entry equal on both sides, No crackles or wheezing, no rhonchi. CVS- Rate rhythm regular, S1,S2 heard, no gallop, no rub. 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 Medical - PN: Obj Da - Labs CBC & Chem 7: 03/17/17 06:13 03/17/17 06:13 Labs: Abnormal Lab Results 03/17/17 03/17/17 03/16/17 06:13 06:13 04:10 RBC 2.90 L Hgb 9.7 L Hct 29.7 L MCV 102.5 H RDW 20.7 H Lymph % (Auto) [place] % (Auto) 20.1 H Eos % (Auto) 8.5 H Lymph # 1.2 L [place] # 1.5 H Chloride 94 L 92 L BUN 36 H 29 H Creatinine 6.2 H* 4.4 H Calcium 7.2 L 7.5 L Phosphorus 5.9 H GGT 5 L 5 L Total Protein 5.0 L 4.9 L Albumin 2.9 L 2.5 L Globulin 2.1 L 03/16/17 04:10 RBC 2.97 L Hgb 9.9 L Hct 30.4 L MCV 102.4 H RDW 20.8 H Lymph % (Auto) 13.1 L [place] % (Auto) 22.0 H Eos % (Auto) Lymph # 1.0 L [place] # 1.6 H Chloride BUN Creatinine Calcium Phosphorus GGT Total Protein Albumin Globulin Meds: Medications Acetaminophen (Tylenol) 650 mg PO Q6HP PRN PRN Reason: PAIN/FEVER > 101 Acetaminophen/Hydrocodone Bitart ([place] 5/325mg) 1 tab PO Q4HP PRN PRN Reason: Pain Acyclovir (Zovirax) 400 mg PO BID [facility] Last Admin: 03/17/17 09:34 Dose: 400 mg Albuterol/Ipratropium (Duoneb) 3 ml NEB Q4HRT PRN PRN Reason: Shortness Of Breath Or Wheezing Amlodipine Besylate (Norvasc) 10 mg PO QDAY [facility] Last Admin: 03/17/17 09:34 Dose: 10 mg Aspirin (Ecotrin) 325 mg PO DAILY [facility] Last Admin: 03/17/17 09:34 Dose: 325 mg Carvedilol (Coreg) 25 mg PO BIDCC [facility] Last Admin: 03/17/17 07:34 Dose: 25 mg Diagnostic Test (Pha) (Accu-Chek) 1 each FS PRN PRN PRN Reason: Hypoglycemia Fentanyl (Duragesic) 100 mcg TOPICAL Q72H [facility] Last Admin: 03/16/17 10:10 Dose: 100 mcg Gabapentin (Neurontin) 300 mg PO BID [facility] Last Admin: 03/17/17 09:34 Dose: 300 mg Heparin Sodium (Porcine) (Heparin) 5,000 unit SQ Q12 [facility] Last Admin: 03/17/17 09:34 Dose: 5,000 unit Ceftazidime 1 gm/ Dextrose 50 mls @ 100 mls/hr IV Q24H [facility] Last Admin: 03/17/17 09:49 Dose: Not Given Vancomycin HCl 1,000 mg/ (Sodium Chloride) 250 mls @ 250 mls/hr IV ONCE ONE Stop: 03/17/17 18:59 Naloxone HCl (Narcan) 0.1 mg IV Q2MIN PRN PRN Reason: Opiate Reversal Ondansetron HCl (Zofran) 4 mg IV Q4HP PRN PRN Reason: Nausea And Vomiting Last Admin: 03/16/17 19:38 Dose: 4 mg Oxycodone HCl (Roxicodone) 10 mg PO Q3HP PRN PRN Reason: Pain Last Admin: 03/17/17 07:42 Dose: 10 mg Pantoprazole Sodium (Protonix) 40 mg PO QAMAC [facility] Last Admin: 03/17/17 07:35 Dose: 40 mg Linaclotide [Linzess (] 290 Mcg Cap) 1 dose PO DAILY [facility] Last Admin: 03/17/17 09:36 Dose: Not Given Prednisone (Prednisone) 10 mg PO TuThSa@0800 [facility] Last Admin: 03/17/17 07:35 Dose: 10 mg Senna (Senokot) 2 tab PO HSP PRN PRN Reason: Constipation Torsemide (Demadex) 20 mg PO BIDD [facility] Last Admin: 03/17/17 07:35 Dose: 20 mg Trazodone HCl (Desyrel) 50 mg PO HS [facility] Last Admin: 03/16/17 20:59 Dose: 50 mg Medical - PN: A/P - Time Spent With Patient Total time spent is greater than 50% in coordination of care (as documented) at patient's floor/unit and/or counseling patient: - Narrative A/P Narrative: A/P Health care associated pna: Likely source of fever, treat with vancomycin and ceftazidime for now, (cover pseudomonas) cultures neg so far, will change to oral levofloxacin in AM. ESRD on HD: Nephrology consulted, HD done, HD this PM Hyperkalemia: resolved Sepsis: resolved Multiple Mylenoma: Follows with Dr Wills, DVT: Hep sq DIet: Renal diet Code: Full code Dispo : Likely tomorrow AM, barring any unforeseen changes. Medical - PN: Qual - VTE Deep Vein Thrombosis/Pulmonary Embolism Present on Admission: No
[2017-03-17 16:19] LABS: Basophils # (Auto) 0 K/mcL (0.0-0.3); Basophils % (Auto) 0.4 % (0.0-2.0); Eosinophils # (Auto) 0 K/mcL (0.0-0.7); Eosinophils % (Auto) 0.1 % (0.0-7.0); Lymphocytes # (Auto) 0.5 K/mcL (1.5-4.8); Mean Cell Volume 101.9 fL (80.0-100.0); Mean Corpuscular HGB Conc 32.8 g/dL (31.0-36.0); Mean Corpuscular Hemoglobin 33.4 pg (26.0-34.0); Monocytes % (Auto) 11.5 % (1.0-12.0); Platelet Count 351 K/mcL (140-440); RBC 2.86 M/mcL (4.50-5.90); Red Cell Distribution Width 20.1 % (11.5-14.5)
[2017-03-17 16:45] LABS: ALT/SGPT 9 U/l (0-40); Albumin 2.8 gm/dL (3.2-5.2); Alkaline Phosphatase 92 U/L (39-117); Bilirubin,Direct < 0.2 mg/dL (0.0-0.3); Blood Urea Nitrogen 19 mg/dl (6-20); Gamma Glutamyl Transpeptidase 4 U/L (8-61); Magnesium 1.6 mg/dL (1.6-2.5); Uric Acid 2.6 mg/dL (2.5-8.0)
--- NOTE | 2017-03-17 17:02 | Nephrology Progress Note ---
Subjective Patient information: Note initiated : 03/17/17 at 4:59 pm Service Date, if different from initiated Date: [] Patient: Jamal Blanc 51 y/o M admitted on 03/15/17 for Fever/Chronic Renal Failure, Sepsis. Chief Complaint: [] Principal diagnosis: fever/hyperkalemia Interval history: Patient feels better denies SOB, CP, dizziness Still has right UE edema, AVF US awaited later during the day pt had an episode of unresponsiveness while on dialysis, improved sponatenously, blood glucose was negative, CT scan planned later after dialysis Pertinent ROS: as above Objective - Vital Signs Vital signs: Vital Signs Temp Pulse Pulse Resp BP BP Pulse Ox 03/17/17 16:35 79 148/68 03/17/17 16:05 82 158/70 03/17/17 15:49 92 H 161/77 03/17/17 15:40 92 H 164/68 03/17/17 15:29 98.2 F 18 151/65 91 03/17/17 15:05 74 151/65 03/17/17 14:33 72 149/68 03/17/17 14:05 73 149/73 03/17/17 13:42 98.2 F 81 157/76 03/17/17 11:49 98.1 F 18 121/73 91 03/17/17 07:49 98.2 F 18 113/68 90 03/17/17 03:50 98.7 F 73 16 106/57 91 03/17/17 00:00 98.3 F 82 16 108/66 92 03/16/17 20:00 98.1 F 74 16 103/56 92 Intake and Output 03/17/17 03/17/17 03/17/17 05:59 13:59 21:59 Intake Total 350 / 350 60 / 60 480 / 480 Output Total 0 / 0 86863 / 52352 Balance 350 / 350 60 / 60 -98255 / -61608 Intake: Oral 350 / 350 60 / 60 480 / 480 Output: Hemodialysis UF 0 / 0 20858 / 52166 Other: Meal Lunch Percent of Meal Consumed 40% Feeding Ability Assist with Tray Set Up Intake & Output: Intake & Output 03/17/17 03/17/17 03/17/17 05:59 13:59 21:59 Intake Total 350 / 350 60 / 60 480 / 480 Output Total 0 / 0 96866 / 02235 Balance 350 / 350 60 / 60 -30463 / -35077 Intake: Oral 350 / 350 60 / 60 480 / 480 Output: Hemodialysis UF 0 / 0 55278 / 44759 Other: Meal Lunch Percent of Meal Consumed 40% Feeding Ability Assist with Tray Set Up - General Appearance General appearance: appears started age, chronically ill EENT: mucous membranes moist Neck: no JVD Respiratory: clear Cardiology: no edema (only in right UE ), normal S1, normal S2 Gastrointestinal: no tenderness, no guarding Integumentary: no rash, warm and dry Neurologic: no focal deficit, alert and oriented x3 Musculoskeletal: no clubbing Psychiatric: mood/affect appropriate - Lab 03/17/17 15:58 03/17/17 15:58 Most recent lab results Calcium 7.2 mg/dl (8.6-10.4) L 03/17/17 15:58 Phosphorus 2.5 mg/dL (2.7-4.5) L 03/17/17 15:58 Magnesium 1.6 mg/dL (1.6-2.5) 03/17/17 15:58 Assessment and Plan (1) ESRD (end stage renal disease) on dialysis HD today for 4 hrs using revclear dialyser, 3K/2.5Ca dialysate, UF goal of 2-3L as tolerated unresponsive event on dialysis hasnot happened in the past unclear etiology agree with CT scan also will be monitored overnight mild anemia: on aranesp per oncology, will monitor Fever/pneumonia: on antibiotic, stable cultures pending Appreciate hospitalist help in managing this patient Status: Acute
[2017-03-17] MEDS ORDERED: VANCOMYCIN 1,000 MG in 0.9 % SODIUM CHLORIDE 250 ML IV ONE (18:00)
[2017-03-17] MEDS ORDERED: SENNOSIDES 1 TABLET PO PRN (20:22)
[2017-03-17] MEDS ORDERED: NALOXONE HCL 0.4 MG/ML VIAL IV PRN (20:22)
[2017-03-17] MEDS ORDERED: HYDROcodone/APAP 5/325MG TABLET PO PRN (20:22)
[2017-03-17] MEDS ORDERED: IPRATROPIUM/ALBUTEROL 3 ML AMPUL.NEB NEB PRN (20:22)
[2017-03-17] MEDS ORDERED: ACETAMINOPHEN 325 MG TABLET PO PRN (20:22)
[2017-03-17] MEDS: ONDANSETRON 4 MG/2 ML VIAL IV PRN (20:31)
[2017-03-17] MEDS ORDERED: ONDANSETRON 4 MG/2 ML VIAL ONE (20:32)
[2017-03-17] MEDS: traZODone HCL 50 MG TABLET PO SCH (21:19)
--- NOTE | 2017-03-18 05:34 | Cat Scan Report ---
CLINICAL INFORMATION: Acute mental status change COMPARISON: None. TECHNIQUE: 2.5 mm helical slices were obtained in the skull base to vertex. Following reconstruction, axial reformatted images were reviewed at bone and parenchymal windows. FINDINGS: The ventricles, sulci, fissures, and cisterns are normal in size and configuration. No extra-axial fluid collections are identified. Minimal chronic ischemic changes in the future white matter. No acute hemorrhage, mass effect edema or other acute finding. Bone windows show no osseous abnormality IMPRESSION: Minimal scattered chronic ischemic changes in the cerebral white matter. No acute findings. Interpreted and Authenticated by: Jason Crzu 03/18/17
[2017-03-18 06:08] LABS: Basophils # (Auto) 0.1 K/mcL (0.0-0.3); Basophils % (Auto) 1.4 % (0.0-2.0); Eosinophils # (Auto) 0 K/mcL (0.0-0.7); Eosinophils % (Auto) 0 % (0.0-7.0); Granulocytes % (Auto) 60.7 % (38.0-78.0); Lymphocytes # (Auto) 1.1 K/mcL (1.5-4.8); Lymphocytes % (Auto) 18.6 % (15.5-49.0); Mean Cell Volume 102.4 fL (80.0-100.0); Mean Corpuscular HGB Conc 32.2 g/dL (31.0-36.0); Monocytes # (Auto) 1.1 K/mcL (0.1-0.9); Monocytes % (Auto) 19.3 % (1.0-12.0); Platelet Count 317 K/mcL (140-440); RBC 2.73 M/mcL (4.50-5.90); Red Cell Distribution Width 20.5 % (11.5-14.5)
[2017-03-18 06:30] LABS: ALT/SGPT 8 U/l (0-40); Albumin 2.9 gm/dL (3.2-5.2); Albumin/Globulin Ratio 1.3 (1.0-2.3); Alkaline Phosphatase 81 U/L (39-117); Bilirubin,Direct < 0.2 mg/dL (0.0-0.3); Blood Urea Nitrogen 16 mg/dl (6-20); Gamma Glutamyl Transpeptidase 6 U/L (8-61); Magnesium 1.7 mg/dL (1.6-2.5); Uric Acid 2.4 mg/dL (2.5-8.0)
[2017-03-18] MEDS: PANTOPRAZOLE 40 MG TABLET PO SCH (08:21)
[2017-03-18] MEDS: oxyCODONE HCL 5 MG TABLET PO PRN ×4 (08:29→22:08)
--- NOTE | 2017-03-18 10:05 | Ultrasound Report ---
CLINICAL INFORMATION: Foreign swelling and edema. brachial artery to cephalic vein arteriovenous fistula COMPARISON: None. FINDINGS: The brachial artery to cephalic venous fistula is identified near the antecubital region. There is a 50% stenosis in the cephalic vein just distal to the anastomosis. There is moderate edema in the forearm soft tissues distal to the fistula. A 3 cm complex fluid collection is seen in the axillary region IMPRESSION: 1. Brachial artery to cephalic vein fistula is patent, however, there is a 50% stenosis in the cephalic vein - just distal to anastomosis. 2. Moderate forearm edema distal to the anastomosis 3. 3 cm complex fluid collection the axillary region - likely a hematoma. An abscess would be unlikely unless there is clinical support Interpreted and Authenticated by: Jason Cruz 03/18/17
[2017-03-18] MEDS: TORSEMIDE 10 MG TABLET PO SCH ×2 (10:06→15:50)
[2017-03-18] MEDS: CARVEDILOL 12.5 MG TABLET PO SCH ×2 (10:06→17:10)
[2017-03-18] MEDS: HEPARIN 5,000 UNIT/ML VIAL SQ SCH ×2 (10:14→21:13)
[2017-03-18] MEDS: GABAPENTIN 300 MG CAPSULE PO SCH ×2 (10:14→21:12)
[2017-03-18] MEDS: ASPIRIN 325 MG ENTERIC COATED TABLET PO SCH (10:15)
[2017-03-18] MEDS: WATER IV SCH (10:15)
[2017-03-18] MEDS: CEFTAZIDIME IV SCH (10:15)
[2017-03-18] MEDS: ACYCLOVIR 400 MG TABLET PO SCH ×2 (10:15→21:12)
[2017-03-18] MEDS: amLODIPine 10 MG TABLET PO SCH (10:15)
[2017-03-18] MEDS: DEXTROSE 5% IV SCH (10:15)
[2017-03-18] MEDS: ONDANSETRON 4 MG/2 ML VIAL IV PRN (10:26)
--- NOTE | 2017-03-18 11:46 | Internal Med Progress Note ---
Medical - PN: Subj Patient information: Note initiated : 03/18/17 at 11:43 am Service Date, if different from initiated Date: [] Patient: Jamal Blanc a 51 y/o M admitted on 03/15/17 for Fever/Chronic Renal Failure, Sepsis. Chief Complaint: [] Interval history: Mr. Blanc is a 51 year old male with h/o HD via a fistula on the left arm, multiple myeloma, amylodosis, presents to the ER with complaints of fever x 2 days. The patient had his HD on Tuesday, was ok then, since day before yesterday he suddenly noticed chills and rigors, weakness. He was in bed the whole day yesterday, since his condition was not improving, and he remained weak with chills he was brought to the ER. He was also febrile during this periods. In the ER the patient was noted to be febrile, with elevated wbc count. The patient has chr cough but denies any change in his condition.he still makes urine, but denies any urinary complaints, he has chr loose stools, denisse any new diarrhea, no sinus issues. no headaches or vison changes, no skin redness or rashes. the patient missed his HD session today, his electrolytes are abnl with hyponatremia and hyperkalemia. He will be admitted to the hospital for further management, Nephrology consulted. cxr shows atelectasis vs pna, 03/16: Patient seen and examined, no fever overnight, no new complaints, tolerating po well. 03/17: Pt seen examined, no acute overnight events, patient denies any new concerns, had low grade temp yesterday AM, but overall is improving, Patient is due for HD this afternoon. His microbiology is negative. He is tolerating po diet well. 03/18: Pt seen examined, pt had a low grade temp yesterday evening, but otherwise does not report of any other problems. His CXR shows atelectastis. His USG of doppler of the right arm showed a 3cm complex cystic mass hematoma vs abscess. The patient in light of persistant fevers, will have a USG guided needle aspiration of the axillary abscess/ fluid collection. No more transient AMS like features, CT head is negative. His procalcitonin is elevated and has risen from previous labs. If there is no abscess, will consider CT chest to look for pna, Pertinent ROS: Denies headache, dizziness Denies chest pain, palpitations Denies cough or shortness of breath Denies abdominal pain, nausea or vomiting. - Constitutional Vitals: Vital Signs Temp Pulse Resp BP Pulse Ox 98.4 F 68 16 109/61 92 03/18/17 03:30 03/18/17 03:30 03/18/17 03:30 03/18/17 03:30 03/18/17 03:30 Period Temp Pulse Resp BP Sys/Rossi Pulse Ox Last 24 Hr 97.8 F-100.0 F 68-95 16-18 109-164/61-77 91-94 Intake and Output 03/17/17 03/18/17 03/18/17 21:59 05:59 13:59 Intake Total 630 / 630 50 / 50 290 / 290 Output Total 38284 / 40203 Balance -29964 / -63762 50 / 50 290 / 290 Weight 172 lb Intake & Output: Intake & Output 03/17/17 03/18/17 03/18/17 21:59 05:59 13:59 Intake Total 630 / 630 50 / 50 290 / 290 Output Total 90834 / 94431 Balance -71415 / -11170 50 / 50 290 / 290 Weight 172 lb Intake: IV 50 / 50 Fortaz 1 gm In Dextrose 5 50 / 50 % in Water 50 ml @ 100 mls/hr IV Q24H [facility] Rx#: [id number] Oral 630 / 630 50 / 50 240 / 240 Output: Void Amount 400 / 400 Hemodialysis UF 70389 / 77009 Other: Meal Dinner Breakfast Percent of Meal Consumed 100% 100% Feeding Ability Independent # Voids 1 Exam: Constitutional; Afebrile, cooperative, alert, not in distress. Eyes- No icterus, , No periorbital swelling Ears- Ext ear normal, hearing normal to conversation. Neck- Midline trachea, supple Respiratory system: Air Entry equal on both sides, No crackles or wheezing, no rhonchi. CVS- Rate rhythm regular, S1,S2 heard, no gallop, no rub. systolic murmur. Abdomen- Soft nontender abdomen, no organomegaly, no tenderness, no guarding or rigidity, SURVEILLANCE TECHNICIAN- AOOx3, moving all extremities, no gross focal deficit noted. Extermity: Right arm swelling, Medical - PN: Obj Da - Labs CBC & Chem 7: 03/18/17 04:27 03/18/17 04:27 Labs: Abnormal Lab Results 03/18/17 03/18/17 03/17/17 04:27 04:27 15:58 RBC 2.73 L Hgb 9.0 L Hct 27.9 L MCV 102.4 H RDW 20.5 H Gran % Lymph % (Auto) [place] % (Auto) 19.3 H Eos % (Auto) Lymph # 1.1 L [place] # 1.1 H Chloride 92 L 91 L BUN Creatinine 3.6 H 3.3 H Glucose 134 H Uric Acid 2.4 L Calcium 7.3 L 7.2 L Phosphorus 2.5 L GGT 6 L 4 L Total Protein 5.1 L 5.5 L Albumin 2.9 L 2.8 L Globulin Triglycerides 199 H 03/17/17 03/17/17 03/17/17 15:58 06:13 06:13 RBC 2.86 L 2.90 L Hgb 9.5 L 9.7 L Hct 29.1 L 29.7 L MCV 101.9 H 102.5 H RDW 20.1 H 20.7 H Gran % 82.0 H Lymph % (Auto) 6.0 L [place] % (Auto) 20.1 H Eos % (Auto) 8.5 H Lymph # 0.5 L 1.2 L [place] # 1.0 H 1.5 H Chloride 94 L BUN 36 H Creatinine 6.2 H* Glucose Uric Acid Calcium 7.2 L Phosphorus 5.9 H GGT 5 L Total Protein 5.0 L Albumin 2.9 L Globulin 2.1 L Triglycerides 03/16/17 03/16/17 04:10 04:10 RBC 2.97 L Hgb 9.9 L Hct 30.4 L MCV 102.4 H RDW 20.8 H Gran % Lymph % (Auto) 13.1 L [place] % (Auto) 22.0 H Eos % (Auto) Lymph # 1.0 L [place] # 1.6 H Chloride 92 L BUN 29 H Creatinine 4.4 H Glucose Uric Acid Calcium 7.5 L Phosphorus GGT 5 L Total Protein 4.9 L Albumin 2.5 L Globulin Triglycerides Meds: Medications Acetaminophen (Tylenol) 650 mg PO Q6HP PRN PRN Reason: PAIN/FEVER > 101 Acetaminophen/Hydrocodone Bitart (Turrell 5/325mg) 1 tab PO Q4HP PRN PRN Reason: Pain Acyclovir (Zovirax) 400 mg PO BID [facility] Last Admin: 03/18/17 10:15 Dose: 400 mg Albuterol/Ipratropium (Duoneb) 3 ml NEB Q4HRT PRN PRN Reason: Shortness Of Breath Or Wheezing Amlodipine Besylate (Norvasc) 10 mg PO QDAY [facility] Last Admin: 03/18/17 10:15 Dose: 10 mg Aspirin (Ecotrin) 325 mg PO DAILY [facility] Last Admin: 03/18/17 10:15 Dose: 325 mg Carvedilol (Coreg) 25 mg PO BIDCC [facility] Last Admin: 03/18/17 10:06 Dose: 25 mg Diagnostic Test (Pha) (Accu-Chek) 1 each FS PRN PRN PRN Reason: Hypoglycemia Fentanyl (Duragesic) 100 mcg TOPICAL Q72H [facility] Gabapentin (Neurontin) 300 mg PO BID [facility] Last Admin: 03/18/17 10:14 Dose: 300 mg Heparin Sodium (Porcine) (Heparin) 5,000 unit SQ Q12 [facility] Last Admin: 03/18/17 10:14 Dose: 5,000 unit Ceftazidime 1 gm/ Dextrose 50 mls @ 100 mls/hr IV Q24H [facility] Last Infusion: 03/18/17 10:45 Dose: Infused Naloxone HCl (Narcan) 0.1 mg IV Q2MIN PRN PRN Reason: Opiate Reversal Ondansetron HCl (Zofran) 4 mg IV Q4HP PRN PRN Reason: Nausea And Vomiting Last Admin: 03/18/17 10:26 Dose: 4 mg Oxycodone HCl (Roxicodone) 10 mg PO Q3HP PRN PRN Reason: Pain Last Admin: 03/18/17 08:29 Dose: 10 mg Pantoprazole Sodium (Protonix) 40 mg PO QAMAC [facility] Last Admin: 03/18/17 08:21 Dose: 40 mg Linaclotide [Linzess (] 290 Mcg) 1 dose PO DAILY [facility] Last Admin: 03/18/17 10:16 Dose: Not Given Prednisone (Prednisone) 10 mg PO TuThSa@0800 [facility] Senna (Senokot) 2 tab PO HSP PRN PRN Reason: Constipation Torsemide (Demadex) 20 mg PO BIDD [facility] Last Admin: 03/18/17 10:06 Dose: 20 mg Trazodone HCl (Desyrel) 50 mg PO HS [facility] Last Admin: 03/17/17 21:19 Dose: 50 mg Medical - PN: A/P - Time Spent With Patient Total time spent is greater than 50% in coordination of care (as documented) at patient's floor/unit and/or counseling patient: - Narrative A/P Narrative: A/P Health care associated pna: Likely source of fever, treat with vancomycin and ceftazidime for now, (cover pseudomonas) cultures neg so far, will change to oral levofloxacin in AM. ESRD on HD: Nephrology consulted, HD done, HD this PM Hyperkalemia: resolved Sepsis: resolved Axillary abscess: noted on ultrasound, to be drained to day by radiology Low grade fever: likely from the abscess, try to drain same, pt has elevated procalcitonin, bacterial source? will consider malignancy as source if no etiology is found. Multiple Myeloma: Follows with Dr Wills, DVT: Hep sq DIet: Renal diet Code: Full code Dispo : Likely tomorrow AM, barring any unforeseen changes. Medical - PN: Qual - VTE Deep Vein Thrombosis/Pulmonary Embolism Present on Admission: No
[2017-03-18] MEDS ORDERED: DARBEPOETIN ALFA SQ ONE (14:41)
--- NOTE | 2017-03-18 15:23 | Ultrasound Report ---
CLINICAL INFORMATION: Right axillary fluid collection COMPARISON: 03/16/2017 ultrasound. FINDINGS: The fluid collection, seen on the ultrasound two days prior, has been resorbed. There is no abnormality in this particular region on today's study. IMPRESSION: Negative exam Interpreted and Authenticated by: Jason Cruz 03/18/17
[2017-03-18] MEDS ORDERED: DARBEPOETIN ALFA 100 MCG/ML VIAL IV ONE (15:30)
[2017-03-18] MEDS ORDERED: DARBEPOETIN ALFA 200 MCG/ML VIAL IV ONE (15:30)
--- NOTE | 2017-03-18 17:15 | Cat Scan Report ---
CLINICAL INFORMATION: Fever COMPARISON: 02/18/2016 chest abdomen and pelvic CT from [place]. TECHNIQUE: Enteric contrast was utilized. 80 cc of Isovue-300 were injected intravenously, and 50 seconds later 2.5 mm helical slices were obtained from the lung apices through the subtrochanteric regions of the femurs. Following reconstruction, 2.5 mm sagittal, coronal and axial reformatted images were processed and reviewed at multiple windows and levels. 7 mm MIP reconstructions were obtained through the lungs to optimize nodule detection. FINDINGS: Pulmonary parenchymal windows show moderate stranding fibrosis/atelectasis in the posterior left lower lobe which has progressed. Moderate sized vague groundglass infiltrates are present in the peribronchiovascular right upper and lower lobes with smaller regions in the peribronchial right middle, left upper and left lower lobes. These are new findings since the previous study. There are no effusions. Mediastinal windows show the noncontrasted heart to be normal in size and configuration. The noncontrasted pulmonary arteries and thoracic aorta are normal in contour and caliber. There is no adenopathy in the mediastinal, hilar or axillary region. There is moderate arthritic changes in the right glenohumeral joint with a small effusion. This is also seen on the previous study. Images should the abdomen show the noncontrasted liver, gallbladder and bile ducts, both adrenal glands, spleen, pancreas and aorta to be normal. Moderate bilateral renal atrophy noted compatible with end-stage renal disease. There is no free air, free fluid and no adenopathy. The stomach, small large bowel are symmetrically dilated compatible with mild ileus. Images should the pelvis show moderate. In the urinary bladder which is otherwise normal. Bone windows show no focal osseous abnormality IMPRESSION: 1. Moderate, vague groundglass infiltrates in both upper, right middle and lower lobes. They are new from the previous chest CT one year prior. This may be a source of fever. Moderate stranding fibrosis/atelectasis in the posterior left lower lobe is unchanged. 2. Moderate bilateral renal atrophy compatible with end-stage renal disease. Interestingly, moderate amount of urine is present within the bladder indicating significant renal function 3. Abdomen and pelvis otherwise unremarkable. No evidence of infection 4. Moderate inflammatory arthritic changes in the right glenohumeral joint - chronic Interpreted and Authenticated by: Jason Cruz 03/18/17
[2017-03-18 19:20] LABS: Appearance,Urine CLEAR; Bacteria,Urine 0 /hpf (0); Bilirubin,Urine NEG (NEG); Color,Urine STRAW; Glucose,Urine (UA) NEGATIVE (NEG); Leukocyte Esterase,Urine NEG /uL (NEG); Nitrate,Urine NEG (NEG); Protein,Urine NEG (NEG); Specific Gravity,Urine 1.003 (1.000-1.035); Urine Blood 0.03 mg/dL (<0.03); Urine RBC < 1 /hpf (0-1); Urine Squamous Epithelial Cell 0 /hpf (0-4); Urine WBC < 1 /hpf (0-4); Urobilinogen,Urine NEG (NEG)
[2017-03-18] MEDS: traZODone HCL 50 MG TABLET PO SCH (21:13)
[2017-03-19 05:50] LABS: Basophils # (Auto) 0.1 K/mcL (0.0-0.3); Basophils % (Auto) 1.2 % (0.0-2.0); Eosinophils # (Auto) 0.3 K/mcL (0.0-0.7); Eosinophils % (Auto) 3.8 % (0.0-7.0); Granulocytes % (Auto) 64.9 % (38.0-78.0); Lymphocytes # (Auto) 1.2 K/mcL (1.5-4.8); Lymphocytes % (Auto) 14.2 % (15.5-49.0); Mean Cell Volume 101.8 fL (80.0-100.0); Mean Corpuscular HGB Conc 32.8 g/dL (31.0-36.0); Mean Corpuscular Hemoglobin 33.4 pg (26.0-34.0); Monocytes # (Auto) 1.4 K/mcL (0.1-0.9); Monocytes % (Auto) 15.9 % (1.0-12.0); Platelet Count 325 K/mcL (140-440); RBC 2.85 M/mcL (4.50-5.90); Red Cell Distribution Width 19.7 % (11.5-14.5)
[2017-03-19 06:10] LABS: ALT/SGPT 10 U/l (0-40); Albumin 2.8 gm/dL (3.2-5.2); Albumin/Globulin Ratio 1.2 (1.0-2.3); Alkaline Phosphatase 80 U/L (39-117); Bilirubin,Direct < 0.2 mg/dL (0.0-0.3); Blood Urea Nitrogen 22 mg/dl (6-20); Gamma Glutamyl Transpeptidase 5 U/L (8-61); Magnesium 1.7 mg/dL (1.6-2.5); Uric Acid 4.5 mg/dL (2.5-8.0)
[2017-03-19] MEDS: PANTOPRAZOLE 40 MG TABLET PO SCH (07:19)
[2017-03-19] MEDS ORDERED: predniSONE 10 MG TABLET PO SCH (08:00)
[2017-03-19] MEDS: TORSEMIDE 10 MG TABLET PO SCH ×2 (09:00→17:45)
[2017-03-19] MEDS: GABAPENTIN 300 MG CAPSULE PO SCH ×2 (09:00→20:21)
[2017-03-19] MEDS: ASPIRIN 325 MG ENTERIC COATED TABLET PO SCH (09:00)
[2017-03-19] MEDS: ACYCLOVIR 400 MG TABLET PO SCH ×2 (09:00→20:21)
[2017-03-19] MEDS: CARVEDILOL 12.5 MG TABLET PO SCH ×2 (09:00→17:45)
[2017-03-19] MEDS: amLODIPine 10 MG TABLET PO SCH (09:00)
[2017-03-19] MEDS: HEPARIN 5,000 UNIT/ML VIAL SQ SCH ×2 (09:53→20:21)
[2017-03-19] MEDS ORDERED: fentaNYL 100 MCG PATCH TOPICAL SCH (10:00)
[2017-03-19] MEDS: CEFTAZIDIME IV SCH (10:57)
[2017-03-19] MEDS: DEXTROSE 5% IV SCH (10:57)
[2017-03-19] MEDS: WATER IV SCH (10:57)
--- NOTE | 2017-03-19 11:44 | Discharge Summary ---
Medical - DS: Prov Patient information: Note initiated : 03/19/17 at 11:38 am Service Date, if different from initiated Date: [] Patient: Jamal Blanc 51 y/o M admitted on 03/15/17 for Fever/Chronic Renal Failure, Sepsis. Chief Complaint: [] Date of admission: 03/15/17 13:30 Discharge date: 03/19/17 Primary care physician: Teodora Guadarrama Admitting clinician: Nahun Gonzalez Discharging clinician: Nahun Gonzalez Medical - DS: Meds - Discharge Medications Prescriptions: Levofloxacin 500 mg PO Q48 #3 tablet Levofloxacin [Levaquin] 750 mg PO ONCE #1 tablet Active and Home Medications: Home Medications Pantoprazole [Protonix] 40 mg PO QAMAC tablet 02/13/16 [Rx Confirmed 03/15/17 Last Taken 03/14/17] Ondansetron HCl [Zofran] 4 mg PO Q4-6HP PRN 03/06/16 [History Confirmed Last Taken Unknown] Torsemide [Demadex] 20 mg PO BID 03/06/16 [History Confirmed 03/15/17 Last Taken 03/14/17] traZODone HCL [Desyrel] 50 mg PO HS 03/06/16 [History Confirmed 03/15/17 Last Taken 03/14/17] oxyCODONE HCL [Oxycodone HCl] 10 mg PO Q3HP PRN 02/10/17 [History Confirmed Last Taken 03/14/17] amlodipine 10 mg tablet 10 mg PO QDAY #30 tab 03/08/17 [Rx Confirmed 03/15/17 Last Taken 03/14/17] Acyclovir [Zovirax] 400 mg PO BID 03/15/17 [History Confirmed 03/15/17 Last Taken Unknown] Aspirin [Aspirin EC] 325 mg PO DAILY 03/15/17 [History Confirmed 03/15/17 Last Taken Unknown] Carvedilol [Coreg] 25 mg PO BID 03/15/17 [History Confirmed 03/15/17 Last Taken 03/14/17] Gabapentin [Neurontin] 300 mg PO BID 03/15/17 [History Confirmed 03/15/17 Last Taken 03/14/17] Linaclotide [Linzess] 290 mcg PO DAILY 03/15/17 [History Confirmed 03/18/17 Last Taken 03/14/17] fentaNYL [Fentanyl] 100 mcg TD Q72 03/15/17 [History Confirmed 03/15/17 Last Taken 03/14/17] predniSONE [Prednisone] 10 mg PO 3XW 03/15/17 [History Confirmed 03/17/17 Last Taken Unknown] Medical - DS: Hosp Hospital course: Mr. Blanc is a 51 year old male with h/o myeloma, ESRD on HD, who presented to the hospital for fever, chills. He was admitted to the hospital with the daignosis of pneumonia. Pneumonia: patient had CXR suggestive of infiltrate, elevated procalcitonin, He was treated with IV vancomycin and IV ceftazidime. With improvement in his condition. He had low grade temp during the stay in the hospital. On the day of discharge he has been afebrile x 48 hrs. He will be treated with Levofloxacin orally as outpatient for additional 7 -8 days. Fevers: Low grade, which persisted despite treatment for pna. patient had right upper extremity usg, which showed hematoma vs abscess, however repeat usg for drainage revealed that this had resorbed. The patient underwent CT chest abdomen and pelvis without contrast, which showed ground glass opatcities likely pna on halie lungs. No other source found. Tremors: patient has chr termors on his hands, and unsteadiness. He was seen by OT and PT during the hospital stay. He was offered placement to snf for same, but he declined. Presently he can do transfers with help and will go home. The source of tremors is not clear, but I suspect its from the heavy doses of narcotics he is on, riki oxycodone which is not dialized easily. I will refer him to neurology to have a second opinion. I have also asked him to follow up with his pcp for further evaluation. AMS: During dialysis the patient had a brief episode of altered mental status, he had slurry/ dysarthric speech and rolling of eyes, which he self recovered within [address] head done was negative. labs unremarkable, glucose ok, Patient has had similar episode in the past. did not seem like a cardiac episode. PCP/ Neurology may consider MRI head for further evaluation. The rest of the patients condition was stable, no changes in home medications done except for addition of short term antibiotics. Plan of care was discussed with pt and his parents. Advised to return to hospital for possible placement if he is unable to take care of himself home. Will send home health referral. Discharge diagnosis: Pneumonia - Time Spent with Patient Total time spent providing and/or coordinating discharge services: Greater than 30 minutes Medical - DS: Exam - Constitutional Vitals: Vital Signs Temp Pulse Resp BP Pulse Ox 03/19/17 08:00 98.0 F 88 16 122/76 96 03/19/17 04:00 98.2 F 66 16 112/52 96 03/18/17 23:48 98.5 F 68 14 126/59 93 03/18/17 20:00 98.0 F 69 18 107/53 92 03/18/17 16:00 98.1 F 16 L 118/66 93 03/18/17 12:00 97.5 F 16 124/72 95 Intake and Output 03/18/17 03/19/17 03/19/17 21:59 05:59 13:59 Intake Total 780 / 780 400 / 400 400 / 400 Output Total 375 / 375 Balance 405 / 405 400 / 400 400 / 400 Intake: Oral 780 / 780 400 / 400 400 / 400 Output: Void Amount 375 / 375 Other: Meal Dinner Breakfast Percent of Meal Consumed 75% 100% Feeding Ability Assist with Tray Set Up Weight 170 lb 9.6 oz Additional comments: Constitutional; Afebrile, cooperative, alert, not in distress. Eyes- No icterus, , No periorbital swelling Ears- Ext ear normal, hearing normal to conversation. Neck- Midline trachea, supple Respiratory system: Air Entry equal on both sides, No crackles or wheezing, no rhonchi. CVS- Rate rhythm regular, S1,S2 heard, no gallop, no rub. Abdomen- Soft nontender abdomen, no organomegaly, no tenderness, no guarding or rigidity, KIER TENDER- AOOx3, moving all extremities, no gross focal deficit noted. Medical - DS: Data Labs on day of discharge: Labs from last 24 hours 03/19/17 03/19/17 03/18/17 04:40 04:40 18:54 WBC 8.8 RBC 2.85 L Hgb 9.5 L Hct 29.0 L MCV 101.8 H MCH 33.4 MCHC 32.8 RDW 19.7 H Plt Count 325 MPV 7.5 Gran % 64.9 Lymph % (Auto) 14.2 L [place] % (Auto) 15.9 H Eos % (Auto) 3.8 Baso % (Auto) 1.2 Gran # 5.7 Lymph # 1.2 L [place] # 1.4 H Eos # 0.3 Baso # 0.1 Sodium 134 Potassium 3.8 Chloride 92 L Carbon Dioxide 28 Anion Gap 14.0 BUN 22 H Creatinine 5.3 H* GFR Calculation 11 Glucose 87 Uric Acid 4.5 Calcium 7.3 L Phosphorus 5.1 H Magnesium 1.7 Total Bilirubin 0.2 Direct Bilirubin < 0.2 GGT 5 L AST 11 ALT 10 Alkaline Phosphatase 80 Lactate Dehydrogenase 184 Total Protein 5.2 L Albumin 2.8 L Globulin 2.4 Albumin/Globulin Ratio 1.2 Triglycerides 173 H Urine Color Straw Urine Appearance Clear Urine pH 9.0 Ur Specific [place] 1.003 Urine Protein Neg Urine Glucose (UA) Negative Urine Ketones Neg Urine Occult Blood 0.03 A Urine Nitrate Neg Urine Bilirubin Neg Urine Urobilinogen Neg Ur Leukocyte Esterase Neg Urine RBC < 1 Urine WBC < 1 Ur Squamous Epith Cells 0 Urine Bacteria 0 Ur Culture Indicated? No Medical - DS: A/P - Patient/Caregiver Discharge Instructions Activity: increase activity as tolerated Diet: Renal/Consistent Carbs Additional Instructions: Take levofloxacin 750mg today Take levofloxacin 500mg every other day starting 03/21/17 for total of 3 doses. Go to the ER if worsening symptoms, fever or any new concerning symptom. Follow up with PCP in 7-10 days Try to wean your self off pain medications with the help of your PCP. We will make a referral to Neurology. If you do not hear from them , discuss with PCP for referral. Roger follow up with neurology Dr Gonzalez in 1-2 weeks for tremors. - Follow up Plan Follow up with: Teodora Guadarrama MD [Primary Care Provider] - Doris Bess DO [Physician] - Disposition: Home Health Service Prognosis: Fair Rehab Potential: Fair I certify that the patient requires SNF services: No Overall status at discharge: patient is progressing back to baseline Medical - DS: Qual - VTE Deep Vein Thrombosis/Pulmonary Embolism Present on Admission: No
[2017-03-19] MEDS ORDERED: oxyCODONE HCL 5 MG TABLET PO PRN (16:17)
--- NOTE | 2017-03-19 18:02 | Nephrology Progress Note ---
Subjective Patient information: Note initiated : 03/19/17 at 5:57 pm Service Date, if different from initiated Date: [] Patient: Jamal Blanc 51 y/o M admitted on 03/15/17 for Fever/Chronic Renal Failure, Sepsis. Chief Complaint: [] Principal diagnosis: fever/hyperkalemia Interval history: Patient continues to have issues with myoclonic tremors, pain meds been reduced No SOB, CP, dizzines No edema does have right UE edema, AVF US does show 50% stenosis, will need follow up with IR as outpt no issues with dialysis no other significant issues Pertinent ROS: as above Objective - Vital Signs Vital signs: Vital Signs Temp Pulse Pulse Resp BP BP BP 03/19/17 16:36 96.9 F L 70 154/80 03/19/17 16:09 74 150/79 03/19/17 15:41 66 168/76 03/19/17 15:10 78 150/77 03/19/17 14:40 61 133/89 03/19/17 14:12 68 148/72 03/19/17 13:42 62 130/80 03/19/17 13:11 78 159/78 03/19/17 12:27 98.8 F 81 161/75 03/19/17 12:00 98.2 F 66 16 130/70 03/19/17 08:00 98.0 F 92 H 16 91/51 122/76 03/19/17 04:00 98.2 F 66 16 112/52 03/18/17 23:48 98.5 F 68 14 126/59 03/18/17 20:00 98.0 F 69 18 107/53 Pulse Ox 03/19/17 16:36 03/19/17 16:09 03/19/17 15:41 03/19/17 15:10 03/19/17 14:40 03/19/17 14:12 03/19/17 13:42 03/19/17 13:11 03/19/17 12:27 03/19/17 12:00 03/19/17 08:00 96 03/19/17 04:00 96 03/18/17 23:48 93 03/18/17 20:00 92 Intake and Output 03/19/17 03/19/17 03/19/17 05:59 13:59 21:59 Intake Total 400 / 400 400 / 400 0 / 0 Output Total 1527 / 1527 74674 / 67954 Balance 400 / 400 -1127 / -1127 -79417 / -33889 Intake: Oral 400 / 400 400 / 400 0 / 0 Output: Hemodialysis UF 1527 / 1527 33539 / 38261 Other: Meal Breakfast Percent of Meal Consumed 100% Intake & Output: Intake & Output 03/19/17 03/19/17 03/19/17 05:59 13:59 21:59 Intake Total 400 / 400 400 / 400 0 / 0 Output Total 1527 / 1527 62021 / 69853 Balance 400 / 400 -1127 / -1127 -88122 / -94428 Intake: Oral 400 / 400 400 / 400 0 / 0 Output: Hemodialysis UF 1527 / 1527 68127 / 30849 Other: Meal Breakfast Percent of Meal Consumed 100% - General Appearance General appearance: appears started age, chronically ill EENT: mucous membranes moist Neck: no JVD Respiratory: clear Cardiology: no rub, no edema (only in right UE ), normal S1, normal S2 Gastrointestinal: no tenderness, no guarding Integumentary: no rash, warm and dry Neurologic: alert and oriented x3 Musculoskeletal: no erythema, no cyanosis Psychiatric: mood/affect appropriate - Lab 03/19/17 04:40 03/19/17 04:40 Most recent lab results Calcium 7.3 mg/dl (8.6-10.4) L 03/19/17 04:40 Phosphorus 5.1 mg/dL (2.7-4.5) H 03/19/17 04:40 Magnesium 1.7 mg/dL (1.6-2.5) 03/19/17 04:40 Assessment and Plan (1) ESRD (end stage renal disease) on dialysis HD today for 4 hrs using revclear dialyser, 3K/2.5Ca dialysate, UF goal of 2L as tolerated No issues reported on dialysis next HD on tuesday unless urgent need arises myoclonic tremors in extremities ? from high dose oxycodone as not dialysable the dose is been reduced to 1 tab every 6 hrs, discussed with the pt overuse may cause issues including risk of resp distress, unfortunately other pain meds have not worked well and patient insists in continuing this mild anemia: on aranesp per oncology, will monitor HTN: uncontrolled outpt, BP has been at goal while in hospital, continue coreg and amlodipine as outpt Fever/pneumonia: on antibiotic, stable cultures negative CT scan of the lung shows ground glass opacity ? infectious Appreciate hospitalist help in managing this patient Status: Acute
[2017-03-19] MEDS: traZODone HCL 50 MG TABLET PO SCH (20:21)
[2017-03-20] MEDS ORDERED: NALOXONE HCL 0.4 MG/ML VIAL IV PRN (00:54)
[2017-03-20] MEDS ORDERED: oxyCODONE HCL 5 MG TABLET PO PRN (00:54)
[2017-03-20] MEDS ORDERED: ONDANSETRON 4 MG/2 ML VIAL IV PRN (00:54)
[2017-03-20] MEDS ORDERED: ACETAMINOPHEN 325 MG TABLET PO PRN (00:54)
[2017-03-20] MEDS ORDERED: SENNOSIDES 1 TABLET PO PRN (00:54)
[2017-03-20] MEDS ORDERED: IPRATROPIUM/ALBUTEROL 3 ML AMPUL.NEB NEB PRN (00:54)
[2017-03-20] MEDS: CEFEPIME 1 GM VIAL ONE ×2 (01:14→06:16)
[2017-03-20] MEDS: LEVOFLOXACIN 750 MG/150 ML BAG IV ONE ×5 (01:15→06:16)
[2017-03-20] MEDS: CEFEPIME 1 GM in DEXTROSE 5% IN WATER 50 ML IV SCH ×2 (01:15→02:02)
[2017-03-20 06:19] LABS: ALT/SGPT 8 U/l (0-40); Albumin 2.7 gm/dL (3.2-5.2); Alkaline Phosphatase 79 U/L (39-117); Bilirubin,Direct < 0.2 mg/dL (0.0-0.3); Blood Urea Nitrogen 14 mg/dl (6-20); Gamma Glutamyl Transpeptidase 7 U/L (8-61); Magnesium 1.7 mg/dL (1.6-2.5); Uric Acid 2.5 mg/dL (2.5-8.0)
[2017-03-20 06:43] LABS: Basophils # (Auto) 0.1 K/mcL (0.0-0.3); Basophils % (Auto) 1.5 % (0.0-2.0); Eosinophils # (Auto) 0.1 K/mcL (0.0-0.7); Eosinophils % (Auto) 1.5 % (0.0-7.0); Granulocytes % (Auto) 56.9 % (38.0-78.0); Lymphocytes # (Auto) 1.2 K/mcL (1.5-4.8); Lymphocytes % (Auto) 18.7 % (15.5-49.0); Mean Cell Volume 101.3 fL (80.0-100.0); Mean Corpuscular Hemoglobin 33.5 pg (26.0-34.0); Monocytes # (Auto) 1.4 K/mcL (0.1-0.9); Monocytes % (Auto) 21.4 % (1.0-12.0); Platelet Count 330 K/mcL (140-440); RBC 3.07 M/mcL (4.50-5.90); Red Cell Distribution Width 19.2 % (11.5-14.5)
[2017-03-20] MEDS ORDERED: PANTOPRAZOLE 40 MG TABLET ONE (07:15)
[2017-03-20] MEDS ORDERED: PANTOPRAZOLE 40 MG TABLET PO SCH (07:30)
[2017-03-20] MEDS ORDERED: CARVEDILOL 12.5 MG TABLET PO SCH (08:00)
[2017-03-20] MEDS ORDERED: TORSEMIDE 10 MG TABLET PO SCH (08:00)
[2017-03-20] MEDS ORDERED: LINACLOTIDE 290 MCG PO SCH (09:00)
[2017-03-20] MEDS ORDERED: ASPIRIN 325 MG ENTERIC COATED TABLET PO SCH (09:00)
[2017-03-20] MEDS ORDERED: GABAPENTIN 300 MG CAPSULE PO SCH (09:00)
[2017-03-20] MEDS ORDERED: amLODIPine 10 MG TABLET PO SCH (09:00)
[2017-03-20] MEDS ORDERED: HEPARIN 5,000 UNIT/ML VIAL SQ SCH (09:00)
[2017-03-20] MEDS ORDERED: ACYCLOVIR 400 MG TABLET PO SCH (09:00)
--- NOTE | 2017-03-20 11:58 | Internal Med Progress Note ---
Medical - PN: Subj Patient information: Note initiated : 03/20/17 at 11:55 am Service Date, if different from initiated Date: [] Patient: Jamal Blanc a 51 y/o M admitted on 03/15/17 for Fever/Chronic Renal Failure, Sepsis. Chief Complaint: [] Interval history: Mr. Blanc is a 51 year old male with h/o HD via a fistula on the left arm, multiple myeloma, amylodosis, presents to the ER with complaints of fever x 2 days. The patient had his HD on Tuesday, was ok then, since day before yesterday he suddenly noticed chills and rigors, weakness. He was in bed the whole day yesterday, since his condition was not improving, and he remained weak with chills he was brought to the ER. He was also febrile during this periods. In the ER the patient was noted to be febrile, with elevated wbc count. The patient has chr cough but denies any change in his condition.he still makes urine, but denies any urinary complaints, he has chr loose stools, denisse any new diarrhea, no sinus issues. no headaches or vison changes, no skin redness or rashes. the patient missed his HD session today, his electrolytes are abnl with hyponatremia and hyperkalemia. He will be admitted to the hospital for further management, Nephrology consulted. cxr shows atelectasis vs pna, 03/16: Patient seen and examined, no fever overnight, no new complaints, tolerating po well. 03/17: Pt seen examined, no acute overnight events, patient denies any new concerns, had low grade temp yesterday AM, but overall is improving, Patient is due for HD this afternoon. His microbiology is negative. He is tolerating po diet well. 03/18: Pt seen examined, pt had a low grade temp yesterday evening, but otherwise does not report of any other problems. His CXR shows atelectastis. His USG of doppler of the right arm showed a 3cm complex cystic mass hematoma vs abscess. The patient in light of persistant fevers, will have a USG guided needle aspiration of the axillary abscess/ fluid collection. No more transient AMS like features, CT head is negative. His procalcitonin is elevated and has risen from previous labs. If there is no abscess, will consider CT chest to look for pna, 03/20: Pt seen examined, doing well, tremors and shakes better, we had cut his dosing of oxycodone to q6hrs, and stopped hydrocodone, which I feel helped, He had low grade temp yesterday evening, no other symptoms, Pt has had low garde temp for a long period, multiple cultures done are negative. I doubt if this is related to infection, but feel this is likely from either medication related or malignancy related. Pertinent ROS: Denies headache, dizziness Denies chest pain, palpitations Denies cough or shortness of breath Denies abdominal pain, nausea or vomiting. - Constitutional Vitals: Vital Signs Temp Pulse Resp BP Pulse Ox 98.1 F 76 16 136/62 94 03/20/17 11:48 03/20/17 04:00 03/20/17 11:48 03/20/17 11:48 03/20/17 11:48 Period Temp Pulse Resp BP Sys/Rossi Pulse Ox Last 24 Hr 96.9 F-100.3 F 61-90 16-20 100-168/62-89 94-96 Intake and Output 03/19/17 03/20/17 03/20/17 21:59 05:59 13:59 Intake Total 1080 / 1080 500 / 500 Output Total 93071 / 66297 Balance -01712 / -25763 500 / 500 Weight 170 lb Intake & Output: Intake & Output 03/19/17 03/20/17 03/20/17 21:59 05:59 13:59 Intake Total 1080 / 1080 500 / 500 Output Total 87649 / 45933 Balance -43527 / -56597 500 / 500 Weight 170 lb Intake: IV 200 / 200 Maxipime 1 gm In Dextrose 50 / 50 5% in Water 50 ml @ 100 mls/hr IV Q24H [facility] Rx#: [id number] Oral 1080 / 1080 300 / 300 Output: Hemodialysis UF 93506 / 25660 Other: Meal sandwich Percent of Meal Consumed 75% Feeding Ability Independent Exam: Constitutional; Afebrile, cooperative, alert, not in distress. Eyes- No icterus, , No periorbital swelling Ears- Ext ear normal, hearing normal to conversation. Neck- Midline trachea, supple Respiratory system: Air Entry equal on both sides, No crackles or wheezing, no rhonchi. CVS- Rate rhythm regular, S1,S2 heard, no gallop, no rub. 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 Medical - PN: Obj Da - Labs CBC & Chem 7: 03/20/17 05:00 03/20/17 05:00 Labs: Abnormal Lab Results 03/20/17 03/20/17 03/19/17 05:00 05:00 04:40 RBC 3.07 L Hgb 10.3 L Hct 31.1 L MCV 101.3 H RDW 19.2 H MPV 7.3 L Gran % Lymph % (Auto) [place] % (Auto) 21.4 H Lymph # 1.2 L [place] # 1.4 H Chloride 94 L 92 L BUN 22 H Creatinine 3.6 H 5.3 H* Glucose Uric Acid Calcium 7.7 L 7.3 L Phosphorus 5.1 H GGT 7 L 5 L Total Protein 5.4 L 5.2 L Albumin 2.7 L 2.8 L Triglycerides 173 H Urine Occult Blood 03/19/17 03/18/17 03/18/17 04:40 18:54 04:27 RBC 2.85 L Hgb 9.5 L Hct 29.0 L MCV 101.8 H RDW 19.7 H MPV Gran % Lymph % (Auto) 14.2 L [place] % (Auto) 15.9 H Lymph # 1.2 L [place] # 1.4 H Chloride 92 L BUN Creatinine 3.6 H Glucose Uric Acid 2.4 L Calcium 7.3 L Phosphorus GGT 6 L Total Protein 5.1 L Albumin 2.9 L Triglycerides Urine Occult Blood 0.03 A 03/18/17 03/17/17 03/17/17 04:27 15:58 15:58 RBC 2.73 L 2.86 L Hgb 9.0 L 9.5 L Hct 27.9 L 29.1 L MCV 102.4 H 101.9 H RDW 20.5 H 20.1 H MPV Gran % 82.0 H Lymph % (Auto) 6.0 L [place] % (Auto) 19.3 H Lymph # 1.1 L 0.5 L [place] # 1.1 H 1.0 H Chloride 91 L BUN Creatinine 3.3 H Glucose 134 H Uric Acid Calcium 7.2 L Phosphorus 2.5 L GGT 4 L Total Protein 5.5 L Albumin 2.8 L Triglycerides 199 H Urine Occult Blood Meds: Medications Acetaminophen (Tylenol) 650 mg PO Q6HP PRN PRN Reason: PAIN/FEVER > 101 Acyclovir (Zovirax) 400 mg PO BID [facility] Last Admin: 03/20/17 08:36 Dose: 400 mg Albuterol/Ipratropium (Duoneb) 3 ml NEB Q4HRT PRN PRN Reason: Shortness Of Breath Or Wheezing Amlodipine Besylate (Norvasc) 10 mg PO QDAY [facility] Last Admin: 03/20/17 08:37 Dose: 10 mg Aspirin (Ecotrin) 325 mg PO DAILY [facility] Last Admin: 03/20/17 08:36 Dose: 325 [facility] Last Admin: 03/20/17 08:37 Dose: 25 mg Diagnostic Test (Pha) (Accu-Chek) 1 each FS PRN PRN PRN Reason: Hypoglycemia Fentanyl (Duragesic) 100 mcg TOPICAL Q72H [facility] Gabapentin (Neurontin) 300 mg PO BID [facility] Last Admin: 03/20/17 08:36 Dose: 300 mg Heparin Sodium (Porcine) (Heparin) 5,000 unit SQ Q12 [facility] Last Admin: 03/20/17 08:37 Dose: 5,000 unit Cefepime HCl 1 gm/ Dextrose 50 mls @ 100 mls/hr IV Q24H [facility] Last Infusion: 03/20/17 01:45 Dose: Infused Naloxone HCl (Narcan) 0.1 mg IV Q2MIN PRN PRN Reason: Opiate Reversal Ondansetron HCl (Zofran) 4 mg IV Q4HP PRN PRN Reason: Nausea And Vomiting Oxycodone HCl (Roxicodone) 10 mg PO Q6HP PRN PRN Reason: Pain Last Admin: 03/20/17 08:44 Dose: 10 mg Pantoprazole Sodium (Protonix) 40 mg PO QAMAC [facility] Last Admin: 03/20/17 07:23 Dose: Not Given Linaclotide [Linzess (] 290 Mcg *Pt Own*) 1 dose PO DAILY [facility] Last Admin: 03/20/17 08:35 Dose: 1 dose Prednisone (Prednisone) 10 mg PO TuThSa@0800 [facility] Senna (Senokot) 2 tab PO HSP PRN PRN Reason: Constipation Torsemide (Demadex) 20 mg PO BIDD [facility] Last Admin: 03/20/17 08:36 Dose: 20 mg Trazodone HCl (Desyrel) 50 mg PO [facility] Medical - PN: A/P - Time Spent With Patient Total time spent is greater than 50% in coordination of care (as documented) at patient's floor/unit and/or counseling patient: - Narrative A/P Narrative: A/P Health care associated pna: Likely source of prsenting fever, treated with vanco and cefpime, got one dose of levofloxacin in the hospital, so he will go home on 500mg q48 hrs for 3 more doses. Fever: Drug fever vs malignancy related. ESRD on HD: Nephrology consulted, HD done, HD this PM Hyperkalemia: resolved Sepsis: resolved Axillary abscess: noted on ultrasound, to be drained to day by radiology Low grade fever: likely from the abscess, try to drain same, pt has elevated procalcitonin, bacterial source? will consider malignancy as source if no etiology is found. Multiple Myeloma: Follows with Dr Wills, DVT: Hep sq DIet: Renal diet Code: Full code Medical - PN: Qual - VTE Deep Vein Thrombosis/Pulmonary Embolism Present on Admission: No
[2017-03-20] MEDS ORDERED: traZODone HCL 50 MG TABLET PO SCH (21:00)
[2017-03-22] MEDS ORDERED: predniSONE 10 MG TABLET PO SCH (08:00)
[2017-03-22] MEDS ORDERED: fentaNYL 100 MCG PATCH TOPICAL SCH (10:00)
== END 2017-03-20 14:00 | disposition home health service (06) | DRG 871 ==
LOC: ED 09:29 → ICU 13:30 → MEDSUR 03-16 09:39 → ICU 03-17 17:55
PROVIDERS: ADMIT Internal Medicine; ATTEND Internal Medicine

== ENCOUNTER 2017-11-21 17:36 | Inpatient (IN) ==
--- NOTE | 2017-11-21 17:49 | Emergency Department Note ---
General Adult HPI - General Chief complaint: Weakness Stated complaint: weakness, confusion, shakey Time Seen by Provider: 11/21/17 17:45 Source: patient Mode of arrival: EMS Limitations: no limitations - History of Present Illness HPI Narrative: This is a dialysis patient who has been confused for the last day or 2. His significant other is not here with him and he is having trouble giving us a history. He says he feels poorly but cannot really do fine or tell me exactly how he feels. Does deny cough and denies having any abdominal pain. He had dialysis several days ago. - Related Data Home Medications Medication Instructions Recorded Confirmed Torsemide [Demadex] 20 mg PO BID 03/06/16 11/21/17 oxyCODONE HCL [Oxycodone HCl] 10 mg PO Q3HP PRN 02/10/17 11/21/17 Aspirin [Aspirin EC] 325 mg PO DAILY 03/15/17 11/21/17 Linaclotide [Linzess] 290 mcg PO DAILY 03/15/17 11/21/17 acyclovir 400 mg tablet 400 mg PO QDAY tab 11/02/17 11/21/17 fentanyl 37.5 mcg/hour transdermal 150 mcg TRANSDERMA Q72 each 11/02/17 patch gabapentin 300 mg capsule 300 mg PO QDAY cap 11/02/17 11/21/17 Cyclobenzaprine [Flexeril] 5 mg PO 11/21/17 Sevelamer [Renvela] 800 mg PO 11/21/17 Previous Rx's Medication Instructions Recorded Pantoprazole [Protonix] 40 mg PO QAMAC tab 02/13/16 carvedilol 25 mg tablet 25 mg PO BID #60 tab 11/15/17 amlodipine 10 mg tablet 10 mg PO QDAY #30 tab 11/21/17 Allergies Allergy/AdvReac Type Severity Reaction Status Date / Time Iodinated Contrast- Oral and Allergy Intermediate Unknown Verified 11/02/17 08: 43 IV Dye [Iodinated Contrast Media - IV Dye] iodine Allergy Intermediate Unknown Verified 11/02/17 08:43 Penicillins Allergy Intermediate Other Verified 11/02/17 08:43 Review of Systems Limitations: ROS unobtainable due to patients medical condition Past Medical History - Past Medical History PMFSH Narrative: Medical History (Last Reviewed 11/02/17 @ 09:02 by Darron Trent MD) Sepsis (Acute) Anemia (Acute) Gram-positive bacteremia (Acute) Infection, vascular device (Acute) Fever of unknown origin (Acute) Sepsis (Acute) Hypocalcemia (Acute) Allergic reaction (Acute) Anemia (Acute) Muscular disease (Acute) End stage renal disease (Chronic) Hyponatremia with excess extracellular fluid volume (Acute) Vertigo (Acute) Medication withdrawal (Acute) Renal failure (Acute) Nocturnal muscle cramp (Acute) Neuropathy, peripheral (Acute) Chronic kidney disease, stage IV (severe) (Acute) Chronic hyponatremia (Acute) Hyponatremia (Acute) Congestive heart failure (Acute) Fluid overload (Acute) Anemia (Chronic) SIRS (systemic inflammatory response syndrome) (Acute) ESRD (end stage renal disease) on dialysis (Acute) Heart failure with acute decompensation, type unknown (Acute) Myalgia (Acute) Noncompliance with renal dialysis (Acute) Edema (Acute) Kidney failure (Acute) Pain (Acute) Chronic painful diabetic neuropathy (Acute) Dependence on renal dialysis (Acute) Chronic renal failure (Chronic) CHF (congestive heart failure) (Chronic) Right pulmonary infiltrate on CXR (Acute) Pneumonia (Acute) Organic brain syndrome (Chronic) Paresthesia (Chronic) Pain of hand (Chronic) Chronic Kidney Disease (Chronic) Elevated erythrocyte sedimentation rate (Chronic) Antinuclear factor positive (Chronic) Inflammatory arthritis (Chronic) Anxiety disorder (Chronic) Tobacco dependence (Chronic) Reactive airway disease (Chronic) Acute kidney failure (Acute) Hyperkalemia (Resolved) Hypermagnesemia (Resolved) Hyponatremia (Resolved) Hypertension (Chronic) Anemia of chronic disease (Chronic) Hyperphosphatemia (Acute) Hypocalcemia (Acute) Fever (Acute) Hyponatremia (Acute) Metabolic acidosis (Resolved) Past Surgical History (Last Reviewed 11/02/17 @ 09:02 by Darron Trent MD) History of colonoscopy (Chronic 01/30/16) Family History (Last Reviewed 11/02/17 @ 09:02 by Darron Trent MD) Mother No problems noted. Medical history: Reports: arthritis, CHF, COPD, DM, hypertension, renal disease , other Psychiatric history: Reports: anxiety Surgical history ED: Reports: appendectomy, vascular surgery - Social History smoking status: Smokeless tobacco Alcohol use: Reports: Rarely, Heavy (says, 2-3 ounces A day, but not recently) Drug use: Reports: none, methamphetamine Physical Exam Patient does seem a bit shaky and confused. Limitations: no limitations, altered mental status Head: atraumatic, normocephalic Eye: Present: normal appearance ENT: normal exam, mucous membranes moist Neck: Present: normal inspection Chest: Present: normal inspection Respiratory: Present: normal lung sounds bilaterally Cardiovascular: Present: regular rate, normal rhythm, normal heart sounds Abdominal: Present: soft. Absent: distention, tenderness Neurological: Present: alert Psychiatric: Present: normal affect, normal mood Skin: Present: warm, dry, intact Course Vital Signs Temperature 99.2 F H 11/21/17 17:37 Pulse Rate 72 11/21/17 17:37 Respiratory Rate 20 11/21/17 17:37 Pulse Oximetry (%) 96 11/21/17 17:37 Temperature 99.2 F H 11/21/17 17:37 Pulse Rate 67 11/21/17 21:20 Respiratory Rate 18 11/21/17 21:20 Blood Pressure 161/88 11/21/17 21:16 Pulse Oximetry (%) 95 11/21/17 21:20 Medical Decision Making - MDM Narrative Medical decision making narrative: Lab work and head CT were not that remarkable for dialysis patient. We note that he does take a number of narcotics. We will admit him to the hospital service overnight and he will get dialysis in the morning. Will check an ammonia and an ABG. - Lab Data Lab results reviewed: Yes I reviewed the patient's lab results. Result diagrams: 11/21/17 18:06 11/21/17 18:06 Lab Results 11/21/17 11/21/17 11/21/17 Range/Units 18:06 18:06 18:06 WBC 8.4 (4.5-11.0) K/mcL RBC 3.10 L (4.50-5.90) M/mcL Hgb 10.0 L (13.5-16.5) g/dL Hct 30.4 L (41.0-55.0) % MCV 97.9 (80.0-100.0) fL MCH 32.1 (26.0-34.0) pg MCHC 32.8 (31.0-36.0) g/dL RDW 20.7 H (11.5-14.5) % Plt Count 411 (140-440) K/mcL MPV 7.8 (7.4-10.4) fL Total Counted 100 Seg Neutrophils % 62 (38-78) % Band Neutrophils % Not Reportable Lymphocytes % 14 L (15-49) % Monocytes % (Manual) 13 H (1-12) % Eosinophils % (Manual) 8 H (0-7) % Basophils % (Manual) 3 H (0-2) % Platelet Estimate Normal (NORMAL) RBC Morphology Abnorm A (NORMAL) Anisocytosis 1+ A (NONE SEEN) VBG Lactic Acid 0.9 (0.5-2.2) mmol/L Sodium 137 (133-145) mmol/L Potassium 4.8 (3.3-5.1) mmol/L Chloride 94 L (96-108) mmol/L Carbon Dioxide 19 L (22-30) mmol/L Anion Gap 24.0 H (8-16) BUN 69 H (6-20) mg/dl Creatinine 10.5 H* (0.7-1.2) mg/dl GFR Calculation 5 Glucose 64 L (70-105) mg/dL Calcium 7.8 L (8.6-10.4) mg/dl Total Bilirubin 0.3 (0.0-1.0) mg/dL AST 6 (0-37) U/l ALT < 5 (0-40) U/l Alkaline Phosphatase 70 (39-117) U/L Total Protein 5.9 (5.9-8.4) gm/dL Albumin 2.9 L (3.2-5.2) gm/dL Globulin 3.0 (2.2-3.7) gm/dL Albumin/Globulin Ratio 1.0 (1.0-2.3) - Radiology Data Radiology results reviewed: Yes I reviewed the patient's radiology results. Disposition Pt seen by COMPUTER SYSTEMS MANAGER/PA only: No Clinical Impression: Confusion Disposition: Xfer As Outpt/Obs ([facility]) Condition: Fair Referrals: Doris Bess DO [Primary Care Provider] - Time of Disposition: 21:38
[2017-11-21 19:27] LABS: Mean Cell Volume 97.9 fL (80.0-100.0); Mean Corpuscular HGB Conc 32.8 g/dL (31.0-36.0); Mean Corpuscular Hemoglobin 32.1 pg (26.0-34.0); Platelet Count 411 K/mcL (140-440); Red Cell Distribution Width 20.7 % (11.5-14.5)
[2017-11-21 19:50] LABS: ALT/SGPT < 5 U/l (0-40); Albumin 2.9 gm/dL (3.2-5.2); Alkaline Phosphatase 70 U/L (39-117); Blood Urea Nitrogen 69 mg/dl (6-20)
[2017-11-21 20:11] LABS: Anisocytosis 1+ (NONE SEEN); Basophils % (Manual) 3 % (0-2); Eosinophils % (Manual) 8 % (0-7); Lymphocytes % 14 % (15-49); Monocytes % (Manual) 13 % (1-12); Platelet Estimate NORMAL (NORMAL); RBC Morphology ABNORM (NORMAL); Segmented Neutrophils % 62 % (38-78)
[2017-11-21] MEDS ORDERED: DEXTROSE 50% 50 ML VIAL IV ONE (21:32)
[2017-11-21] MEDS ORDERED: ONDANSETRON 4 MG/2 ML VIAL IV PRN (23:52)
[2017-11-22] MEDS: hydrALAZINE 20 MG/ML VIAL IV PRN ×2 (01:30→08:22)
[2017-11-22] MEDS ORDERED: hydrALAZINE 20 MG/ML VIAL ONE (01:37)
[2017-11-22 06:15] LABS: ALT/SGPT < 5 U/l (0-40); Albumin 3.1 gm/dL (3.2-5.2); Albumin/Globulin Ratio 1.3 (1.0-2.3); Alkaline Phosphatase 67 U/L (39-117); Bilirubin,Direct < 0.2 mg/dL (0.0-0.3); Blood Urea Nitrogen 70 mg/dl (6-20); Gamma Glutamyl Transpeptidase 3 U/L (8-61); Uric Acid 8.7 mg/dL (2.5-8.0)
[2017-11-22] MEDS ORDERED: oxyCODONE HCL 5 MG TABLET PO PRN (06:45)
[2017-11-22] MEDS: PANTOPRAZOLE 40 MG TABLET PO SCH (07:37)
--- NOTE | 2017-11-22 07:44 | Nephrology Consult Note ---
History of Present Illness - Reason for Consult Patient information: Note initiated : 11/22/17 at 7:42 am Service Date, if different from initiated Date: [] Patient: Jamal Blanc a 52 y/o M admitted on 11/21/17 for weakness, confusion , shakey. Chief Complaint: [] Consult date: 11/22/17 end stage renal disease Requesting physician: Juan Pablo Aguilar Mysql Developer - Chief Complaint Altered mental status - History of Present Illness Jamal Blanc is a [id number] male with end stage renal disease due to multiple myeloma on chronic hemodialysis (through right arm AV fistula, at [facility] , on TTS, followed by Dr Guadarrama), secondary hyperparathyroidism, chronic anemia due to renal failure, chronic lung infiltrates and left lower lobe bronchiectasis, admitted on 11/21/16 for acute encephalopathy. Review of Systems ROS unobtainable: due to mental status Past History Past medical history: Medical History (Last Reviewed 11/02/17 @ 09:02 by Darron Trent MD) Sepsis (Acute) Anemia (Acute) Gram-positive bacteremia (Acute) Infection, vascular device (Acute) Fever of unknown origin (Acute) Sepsis (Acute) Hypocalcemia (Acute) Allergic reaction (Acute) Anemia (Acute) Muscular disease (Acute) End stage renal disease (Chronic) Hyponatremia with excess extracellular fluid volume (Acute) Vertigo (Acute) Medication withdrawal (Acute) Renal failure (Acute) Nocturnal muscle cramp (Acute) Neuropathy, peripheral (Acute) Chronic kidney disease, stage IV (severe) (Acute) Chronic hyponatremia (Acute) Hyponatremia (Acute) Congestive heart failure (Acute) Fluid overload (Acute) Anemia (Chronic) SIRS (systemic inflammatory response syndrome) (Acute) ESRD (end stage renal disease) on dialysis (Acute) Heart failure with acute decompensation, type unknown (Acute) Myalgia (Acute) Noncompliance with renal dialysis (Acute) Edema (Acute) Kidney failure (Acute) Pain (Acute) Chronic painful diabetic neuropathy (Acute) Dependence on renal dialysis (Acute) Chronic renal failure (Chronic) CHF (congestive heart failure) (Chronic) Right pulmonary infiltrate on CXR (Acute) Pneumonia (Acute) Organic brain syndrome (Chronic) Paresthesia (Chronic) Pain of hand (Chronic) Chronic Kidney Disease (Chronic) Elevated erythrocyte sedimentation rate (Chronic) Antinuclear factor positive (Chronic) Inflammatory arthritis (Chronic) Anxiety disorder (Chronic) Tobacco dependence (Chronic) Reactive airway disease (Chronic) Acute kidney failure (Acute) Hyperkalemia (Resolved) Hypermagnesemia (Resolved) Hyponatremia (Resolved) Hypertension (Chronic) Anemia of chronic disease (Chronic) Hyperphosphatemia (Acute) Hypocalcemia (Acute) Fever (Acute) Hyponatremia (Acute) Metabolic acidosis (Resolved) Past surgical history: Past Surgical History (Last Reviewed 11/02/17 @ 09:02 by Darron Trent MD) History of colonoscopy (Chronic 01/30/16) Past family history: Family History (Last Reviewed 11/02/17 @ 09:02 by Darron Trent MD) Mother No problems noted. Past social history: Social History (Last Updated 11/02/17 @ 09:13 by Darron Trent MD) No Social History Section defined Medications and Allergies Home Medications Medication Instructions Recorded Confirmed Type Pantoprazole [Protonix] 40 mg PO QAMAC tab 02/13/16 11/21/17 Rx Torsemide [Demadex] 20 mg PO BID 03/06/16 11/21/17 History oxyCODONE HCL [Oxycodone HCl] 10 mg PO Q3HP PRN 02/10/17 11/21/17 History Aspirin [Aspirin EC] 325 mg PO DAILY 03/15/17 11/21/17 History Linaclotide [Linzess] 290 mcg PO DAILY 03/15/17 11/21/17 History acyclovir 400 mg tablet 400 mg PO QDAY tab 11/02/17 11/21/17 History fentanyl 37.5 mcg/hour transdermal 150 mcg TRANSDERMA Q72 each 11/02/17 History patch gabapentin 300 mg capsule 300 mg PO QDAY cap 11/02/17 11/21/17 History carvedilol 25 mg tablet 25 mg PO BID #60 tab 11/15/17 11/21/17 Rx Cyclobenzaprine [Flexeril] 5 mg PO 11/21/17 History Sevelamer [Renvela] 800 mg PO 11/21/17 History amlodipine 10 mg tablet 10 mg PO QDAY #30 tab 11/21/17 11/21/17 Rx Clopidogrel Bisulfate [Plavix] 75 mg PO DAILY 11/22/17 11/22/17 History Allergies Allergy/AdvReac Type Severity Reaction Status Date / Time Iodinated Contrast- Oral and Allergy Intermediate Unknown Verified 11/02/17 08: 43 IV Dye [Iodinated Contrast Media - IV Dye] iodine Allergy Intermediate Unknown Verified 11/02/17 08:43 Penicillins Allergy Intermediate Other Verified 11/02/17 08:43 Exam - Vital Signs Vital signs: Temp Pulse Resp BP Pulse Ox 97.8 F 75 18 180/83 94 11/22/17 07:37 11/22/17 04:40 11/22/17 07:37 11/22/17 07:37 11/22/17 07:37 - General Appearance General appearance: appears started age EENT: mucous membranes moist Neck: supple Cardiology: normal S1, normal S2 Gastrointestinal: no tenderness Integumentary: no rash Neurologic: obtunded Additional exam: No obvious acute distress. Asleep, does not wake up to verbal stimuli. Right arm AV fistula has thrill. Results - Lab Results 11/21/17 18:06 11/22/17 04:26 Most recent lab results Calcium 7.5 mg/dl (8.6-10.4) L 11/22/17 04:26 Phosphorus 4.1 mg/dL (2.7-4.5) 11/22/17 04:26 Magnesium 2.4 mg/dL (1.6-2.5) 11/22/17 04:26 Assessment and Plan (1) ESRD (end stage renal disease) on dialysis Hemodialysis today. The patient seen on dialysis at 12:20. Tolerating well. UF goal increased to 3 kg. Heparin added. Status: Chronic Priority: Medium (2) Acute encephalopathy Etiology not obvious. Hemodialysis today which may help. Management by hospitalist team. Status: Acute Priority: High (3) Metabolic acidosis Status: Resolved Priority: Low (4) Anemia due to end stage renal disease Status: Chronic Priority: Low
--- NOTE | 2017-11-22 08:04 | Cat Scan Report ---
History: Weakness, confusion and tremors Findings: The brain was imaged without contrast at 2.5 mm intervals. There are mild age-related degenerative changes. There is mild atrophy, most apparent in the frontal lobes and around the sylvian fissures. There are also subtle areas of decreased attenuation in the white matter in the centrum semiovale within the frontal lobes. There is no evidence of an infarct, hemorrhage or mass effect. The ventricles and cisterns are normal. There has been no significant change since 03/17/17. Impression: Stable mild age-related degenerative changes and no acute abnormality. Interpreted and Authenticated by: Yordy Chavez 11/22/17
--- NOTE | 2017-11-22 09:47 | History and Physical Report ---
DATE OF ADMISSION: 11/21/2017 DATE OF ADMISSION: 11/21/2017 REASON FOR ADMISSION: Confusion, weakness, dialysis dependent, mental status change. HISTORY OF CHIEF COMPLAINT: The patient is a 52-year-old with end-stage renal disease on hemodialysis, was brought in after he has been getting progressively fatigued, lethargic, and confused over the last few days. The patient has been minimally verbalizing or drowsy, unable to perform activities of daily living. He did not have any fever, associated nausea, projectile vomiting, headache, photophobia or neck stiffness. He denied diarrhea. However, in light of mental status change the patient was brought in for evaluation. Initial workup was essentially unremarkable. The patient carries a history of multiple medications including gabapentin, Flexeril, oral opioids and fentanyl patch. Fentanyl patch was discontinued in the ER, however, without any significant response. Biochemical profile along with white count was essentially unremarkable except for normal elevation creatinine as expected in a dialysis patient. Subsequently, Hospitalist Service was consulted. At the time of evaluation, the patient is fatigued, lethargic, was unable to answer questions except yes and no. Most of the history was obtained from review of medical records. No family members were present. The patient, however, was able to participate in review of systems and denies chest pain. Denies vision changes or unilateral weakness. REVIEW OF SYSTEMS: A ten-point review of system was performed and negative except the ones discussed above. PAST MEDICAL HISTORY: 1. Significant for ESRD on hemodialysis. 2. Neuropathy. 3. Chronic pain. 4. History of herpes. 5. History of multiple myeloma. 6. Anxiety disorder. SOCIAL HISTORY: The patient is a former smoker. Very occasional alcohol use. Remote history of drug use. SURGICAL HISTORY: None significant. ALLERGIES: 1. PENICILLIN. 2. IODINE. 3. CONTRAST DYE. CURRENT MEDICATIONS: 1. Acyclovir 400 mg. 2. Amlodipine 10 mg. 3. Aspirin 325 mg. 4. Coreg 25 mg b.i.d. 5. Fentanyl 100 mcg q.72. 6. Gabapentin 300 mg b.i.d. 7. Linaclotide 290 mcg daily. 8. Zofran 4 mg q.6 p.r.n. 9. Oxycodone 10 mg q.3 p.r.n. 10. Pantoprazole 40 mg. 11. Prednisone 10 mg. 12. Torsemide 20 mg. 13. Trazodone 50 mg. PHYSICAL EXAMINATION: GENERAL: Patient is fatigued, lethargic, unable to respond to questions. However, no agitation. VITAL SIGNS: Blood pressure 143/72, respiration rate 18, temperature 99.2, pulse 60, saturation 97% on room air. HEENT: Pupils symmetric. Oral cavity is dry. No ear or nose discharge. Head is normocephalic. NECK: No lymphadenopathy. CHEST: S1, S2, regular rhythm. ESM grade 1. Diminished breath sounds at bases. ABDOMEN: Soft and nontender. LOWER EXTREMITIES: No cyanosis or clubbing. No joint swelling. Minimal edema, but no skin suspicious lesions. Fistula right lower extremity. PSYCH: Fatigued, lethargic, but no agitation or hallucination. NEURO: Moving all four extremities. Higher functions could not checked. LABS AND IMAGING: White count 8.4, hemoglobin 10. Lactic acid 0.9. Sodium 137, potassium 4.8, creatinine 10.5, BUN 69. LFTs unremarkable. ASSESSMENT AND PLAN: A 52-year-old with history of ESRD, underlying myeloma, admitted with acute mental status change. 1. Acute mental status change, unclear etiology. No evidence of infectious focus noted. Likely polypharmacy. At this time Flexeril, gabapentin and fentanyl patch will be held while the patient will be continued on oxycodone p.o. at half the dose. We will continue neuro checks and continue monitoring for changes in mental status. 2. Other prior medical issues, including: a. ESRD will be managed by Nephrology with dialysis. b. History of hypertension. Continue Coreg, amlodipine. c. Chronic pain. Medications will be lowered as above. d. GERD. Continue PPI. e. Anxiety disorder. Continue trazadone. 3. The patient will be admitted to observation. Overall, a moderate complexity observation given mental status change, underlying ESRD. AA:abbie Job ID: [id number] Doc ID: [id number] Franky Benavidez MD
[2017-11-22] MEDS: HEPARIN 5,000 UNIT/ML VIAL SQ SCH ×2 (09:58→21:17)
--- NOTE | 2017-11-22 09:58 | Internal Med Progress Note ---
Medical - PN: Subj Patient information: Note initiated : 11/22/17 at 9:56 am Service Date, if different from initiated Date: [] Patient: Jamal Blanc 52 y/o M admitted on 11/21/17 for weakness, confusion , shakey. Chief Complaint: [] Interval history: 11/21-patient admitted with significant change in mental status progressive over the last few days. Unable to converse. Frequent myoclonic jerks. Admitted for further evaluation. Notably patient is on 100 g of fentanyl/10 oxycodone every 3 hours/abapentin/trazodone. All medications were discontinued including fentanyl patch that was removed. Patient is due for dialysis in 24 hours 11/22-patient slightly more awake however persistent confusion. Unable to form a sentence. Denies pain. Hemodialysis today. We'll continue to reevaluate and if no clinical improvement 24 hours with initiate further workup including MRI brain/CSF studies. No fever chills or abnormal labs other than consistent with ESRD on hemodialysis, stablel hemodynamics - Constitutional Vitals: Vital Signs Temp Pulse Resp BP Pulse Ox 97.5 F 83 18 180/83 97 11/22/17 07:37 11/22/17 07:37 11/22/17 07:37 11/22/17 07:37 11/22/17 07:37 Period Temp Pulse Resp BP Sys/Rossi Pulse Ox Last 24 Hr 97.4 F-99.2 F 59-83 4-22 123-195/68-147 93-99 Intake and Output 11/21/17 11/22/17 11/22/17 21:59 05:59 13:59 Intake Total 0 / 0 Output Total 300 / 300 Balance 0 / 0 -300 / -300 Weight 175 lb 8 oz 158 lb 8 oz Intake & Output: Intake & Output 11/21/17 11/22/17 11/22/17 21:59 05:59 13:59 Intake Total 0 / 0 Output Total 300 / 300 Balance 0 / 0 -300 / -300 Weight 175 lb 8 oz 158 lb 8 oz Intake: Oral 0 / 0 Output: Void Amount 300 / 300 Other: # Voids 0 General appearance: cooperative, no acute distress Exam: confused and disoriented Nonlabored breathing Nondistended abdomen minimal lymphedema No anxiety Medical - PN: Obj Da - Labs CBC & Chem 7: 11/21/17 18:06 11/22/17 04:26 Labs: Abnormal Lab Results 11/22/17 11/21/17 11/21/17 04:26 18:06 18:06 RBC 3.10 L Hgb 10.0 L Hct 30.4 L RDW 20.7 H Lymphocytes % 14 L Monocytes % (Manual) 13 H Eosinophils % (Manual) 8 H Basophils % (Manual) 3 H RBC Morphology Abnorm A Anisocytosis 1+ A Chloride 95 L 94 L Carbon Dioxide 19 L Anion Gap 19.0 H 24.0 H BUN 70 H 69 H Creatinine 10.8 H* 10.5 H* Glucose 64 L Uric Acid 8.7 H Calcium 7.5 L 7.8 L GGT 3 L Total Protein 5.5 L Albumin 3.1 L 2.9 L Triglycerides 193 H Meds: Medications Acetaminophen (Tylenol) 650 mg PO Q4-6HP PRN PRN Reason: PAIN/FEVER > 101 Acyclovir (Zovirax) 400 mg PO QDAY [facility] Amlodipine Besylate (Norvasc) 10 mg PO QDAY [facility] Aspirin (Ecotrin) 325 mg PO DAILY [facility] Carvedilol (Coreg) 25 mg PO BIDCC [facility] Docusate Sodium (Colace) 100 mg PO BID [facility] Heparin Sodium (Porcine) (Heparin) 5,000 unit SQ Q12 [facility] Hydralazine HCl (Apresoline) 10 mg IV Q6HP PRN PRN Reason: Hypertension Last Admin: 11/22/17 08:22 Dose: 10 mg Ondansetron HCl (Zofran) 4 mg IV Q4-6HP PRN PRN Reason: Nausea And Vomiting Oxycodone HCl (Roxicodone) 10 mg PO Q3HP PRN PRN Reason: Pain Pantoprazole Sodium (Protonix) 40 mg PO QAMAC [facility] Last Admin: 11/22/17 07:37 Dose: 40 mg Linaclotide [Linzess (] 290 Mcg Cap) 1 dose PO DAILY [facility] Senna/Docusate Sodium (Senna Plus Tablet) 1 tab PO HS [facility] Torsemide (Demadex) 20 mg PO DAILY [facility] Medical - PN: A/P - Time Spent With Patient Total time spent is greater than 50% in coordination of care (as documented) at patient's floor/unit and/or counseling patient: 25 - 35 minutes (1) Change in mental status Status: Acute Assessment and plan: * acute change in mental status with frequent myoclonic jerks-suspect polypharmacy/drug effect. Off trazodone/fentanyl/opioids/gabapentin. * ESRD on HD. Managed by nephrology * anemia-stable * History of multiple myeloma * history of hypertension amlodipine/Coreg * Chronic pain-home meds held * GERD on PPI * full code Plan * HD per nephrology * MRI/LP if pt does not improve * preexisting edical condition management as above * hold sedative hypnotics and opioids Current Visit: Yes Medical - PN: Qual - Stroke Symptom Onset Unknown: No - VTE Deep Vein Thrombosis/Pulmonary Embolism Present on Admission: No
[2017-11-22] MEDS: DOCUSATE SODIUM 100 MG CAPSULE PO SCH ×2 (10:04→21:17)
[2017-11-22] MEDS: CARVEDILOL 12.5 MG TABLET PO SCH ×2 (10:04→17:51)
[2017-11-22] MEDS: amLODIPine 10 MG TABLET PO SCH (10:05)
[2017-11-22] MEDS: ASPIRIN 325 MG ENTERIC COATED TABLET PO SCH (10:05)
[2017-11-22] MEDS: TORSEMIDE 10 MG TABLET PO SCH (10:05)
[2017-11-22] MEDS: ACYCLOVIR 400 MG TABLET PO SCH (10:05)
[2017-11-22] MEDS: SENNOSIDES/DOCUSATE SODIUM 1 TAB TABLET PO SCH (21:17)
[2017-11-23] MEDS: PANTOPRAZOLE 40 MG TABLET PO SCH (07:20)
--- NOTE | 2017-11-23 07:50 | Nephrology Progress Note ---
Subjective Patient information: Note initiated : 11/23/17 at 7:48 am Service Date, if different from initiated Date: [] Patient: Jamal Blanc 52 y/o M admitted on 11/21/17 for Weakness, Confusion , Shakey/Mental Status Change. Chief Complaint: [] Principal diagnosis: End Stage Renal Disease Interval history: Encephalopathy improved/resolved. Nausea, vomiting, abdominal pain and diarrhea overnight. Pertinent ROS: Alert, awake, oriented. No headache. No SOB,cough. No chest pain, palpitations. Nausea, vomiting, abdominal pain and diarrhea. No leg edema. No urinary symptoms. No skin rash. No joint problems. Objective - Vital Signs Vital signs: Vital Signs Temp Pulse Pulse Resp BP BP Pulse Ox 11/23/17 04:00 98.2 F 72 20 177/76 96 11/22/17 23:34 98.4 F 83 16 178/81 97 11/22/17 19:39 98.3 F 78 18 172/76 98 11/22/17 16:00 98.3 F 67 18 160/80 97 11/22/17 14:54 98.2 F 65 174/96 11/22/17 14:38 69 170/97 11/22/17 14:02 71 138/117 11/22/17 13:32 62 159/113 11/22/17 13:01 60 166/95 11/22/17 12:31 60 163/133 11/22/17 12:02 68 162/100 11/22/17 11:32 78 167/97 11/22/17 11:07 98.9 F 69 158/97 11/22/17 11:00 98.6 F 60 18 166/95 97 Intake and Output 11/22/17 11/23/17 11/23/17 21:59 05:59 13:59 Intake Total 0 / 0 Output Total 2600 / 2600 Balance -2600 / -2600 0 / 0 Intake: Oral 0 / 0 Output: Hemodialysis UF 2600 / 2600 Other: # Bowel Movements 2 # of times incontinent of 1 Bowels Weight 157 lb 8 oz Intake & Output: Intake & Output 11/22/17 11/23/17 11/23/17 21:59 05:59 13:59 Intake Total 0 / 0 Output Total 2600 / 2600 Balance -2600 / -2600 0 / 0 Weight 157 lb 8 oz Intake: Oral 0 / 0 Output: Hemodialysis UF 2600 / 2600 Other: # Bowel Movements 2 # of times incontinent of 1 Bowels - General Appearance General appearance: appears started age EENT: mucous membranes moist Neck: supple Cardiology: normal S1, normal S2 Gastrointestinal: no tenderness Integumentary: no rash Neurologic: no focal deficit, alert and oriented x3 Psychiatric: cooperative - Lab 11/23/17 09:54 11/23/17 05:11 Most recent lab results Calcium 7.5 mg/dl (8.6-10.4) L 11/22/17 04:26 Phosphorus 4.1 mg/dL (2.7-4.5) 11/22/17 04:26 Magnesium 2.4 mg/dL (1.6-2.5) 11/22/17 04:26 Assessment and Plan (1) ESRD (end stage renal disease) on dialysis Extra hemodialysis today for acute encephalopathy due to suspected uremic encephalopathy and medication side effects. The patient seen on dialysis at 15:20. Tolerating well. Still sleepy. UF target 1 kg. Status: Chronic Priority: Medium (2) Acute encephalopathy Improved after hemodialysis. Suspected medication side effects and inadequate hemodialysis. Status: Acute Priority: High (3) Metabolic acidosis Status: Resolved Priority: Low (4) Anemia due to end stage renal disease Status: Chronic Priority: Low (5) Nausea vomiting and diarrhea Work up and management by hospitalist team. Status: Acute
[2017-11-23 08:06] LABS: ALT/SGPT 6 U/l (0-40); Albumin 3.2 gm/dL (3.2-5.2); Albumin/Globulin Ratio 1.3 (1.0-2.3); Alkaline Phosphatase 71 U/L (39-117); Bilirubin,Direct < 0.2 mg/dL (0.0-0.3); Blood Urea Nitrogen 23 mg/dl (6-20); Gamma Glutamyl Transpeptidase 4 U/L (8-61); Uric Acid 3.9 mg/dL (2.5-8.0)
[2017-11-23] MEDS: TORSEMIDE 10 MG TABLET PO SCH (09:18)
[2017-11-23] MEDS: HEPARIN 5,000 UNIT/ML VIAL SQ SCH ×2 (09:18→20:15)
[2017-11-23] MEDS: amLODIPine 10 MG TABLET PO SCH (09:18)
[2017-11-23] MEDS: DOCUSATE SODIUM 100 MG CAPSULE PO SCH ×2 (09:18→20:17)
[2017-11-23] MEDS: ASPIRIN 325 MG ENTERIC COATED TABLET PO SCH (09:18)
[2017-11-23] MEDS: CARVEDILOL 12.5 MG TABLET PO SCH ×2 (09:18→18:02)
[2017-11-23] MEDS: CLOPIDOGREL 75 MG TABLET PO SCH (09:19)
[2017-11-23] MEDS: ACYCLOVIR 400 MG TABLET PO SCH (09:19)
--- NOTE | 2017-11-23 09:48 | Internal Med Progress Note ---
Medical - PN: Subj Patient information: Note initiated : 11/23/17 at 9:45 am Service Date, if different from initiated Date: [] Patient: Jamal Blanc 52 y/o M admitted on 11/21/17 for Weakness, Confusion , Shakey/Mental Status Change. Chief Complaint: [] Interval history: 11/21-patient admitted with significant change in mental status progressive over the last few days. Unable to converse. Frequent myoclonic jerks. Admitted for further evaluation. Notably patient is on 100 g of fentanyl/10 oxycodone every 3 hours/abapentin/trazodone. All medications were discontinued including fentanyl patch that was removed. Patient is due for dialysis in 24 hours 11/22-patient slightly more awake however persistent confusion. Unable to form a sentence. Denies pain. Hemodialysis today. We'll continue to reevaluate and if no clinical improvement 24 hours with initiate further workup including MRI brain/CSF studies. No fever chills or abnormal labs other than consistent with ESRD on hemodialysis, stablel hemodynamics 11/23- Persistent confusion. MRI brain today. Case discussed with nephrology. Patient hasn't really improved despite hemodialysis and holding fentanyl/ gabapentin. DC oxycodone. if MRI brain unremarkable consider lumbar puncture with opening pressure, however no photophobia fever neck stiffness or leukocytosis. ongoing hemodialysis.CBC pending.biochemical profile unremarkable with normal calcium and sodium. sats on room air. - Constitutional Vitals: Vital Signs Temp Pulse Resp BP Pulse Ox 98.9 F 72 18 149/85 94 11/23/17 07:48 11/23/17 04:00 11/23/17 07:48 11/23/17 07:48 11/23/17 07:48 Period Temp Pulse Resp BP Sys/Rossi Pulse Ox Last 24 Hr 98.2 F-98.9 F 60-83 16-20 138-178/76-133 94-98 Intake and Output 11/22/17 11/23/17 11/23/17 21:59 05:59 13:59 Intake Total 0 / 0 Output Total 2600 / 2600 Balance -2600 / -2600 0 / 0 Weight 157 lb 8 oz Intake & Output: Intake & Output 11/22/17 11/23/17 11/23/17 21:59 05:59 13:59 Intake Total 0 / 0 Output Total 2600 / 2600 Balance -2600 / -2600 0 / 0 Weight 157 lb 8 oz Intake: Oral 0 / 0 Output: Hemodialysis UF 2600 / 2600 Other: # Bowel Movements 2 # of times incontinent of 1 Bowels General appearance: no acute distress Exam: profoundly confused Answers "I am sleepy" to most questions nonlabored breathing Minimal lymphedema Medical - PN: Obj Da - Labs CBC & Chem 7: 11/21/17 18:06 11/23/17 05:11 Labs: Abnormal Lab Results 11/23/17 11/22/17 11/21/17 05:11 04:26 18:06 RBC Hgb Hct RDW Lymphocytes % Monocytes % (Manual) Eosinophils % (Manual) Basophils % (Manual) RBC Morphology Anisocytosis Chloride 95 L 94 L Carbon Dioxide 19 L Anion Gap 21.0 H 19.0 H 24.0 H BUN 23 H 70 H 69 H Creatinine 5.4 H* 10.8 H* 10.5 H* Glucose 64 L 64 L Uric Acid 8.7 H Calcium 8.1 L 7.5 L 7.8 L Phosphorus 2.3 L GGT 4 L 3 L Lactate Dehydrogenase 258 H Total Protein 5.7 L 5.5 L Albumin 3.1 L 2.9 L Triglycerides 166 H 193 H 11/21/17 18:06 RBC 3.10 L Hgb 10.0 L Hct 30.4 L RDW 20.7 H Lymphocytes % 14 L Monocytes % (Manual) 13 H Eosinophils % (Manual) 8 H Basophils % (Manual) 3 H RBC Morphology Abnorm A Anisocytosis 1+ A Chloride Carbon Dioxide Anion Gap BUN Creatinine Glucose Uric Acid Calcium Phosphorus GGT Lactate Dehydrogenase Total Protein Albumin Triglycerides Meds: Medications Acetaminophen (Tylenol) 650 mg PO Q4-6HP PRN PRN Reason: PAIN/FEVER > 101 Acyclovir (Zovirax) 400 mg PO QDAY [facility] Last Admin: 11/23/17 09:19 Dose: Not Given Amlodipine Besylate (Norvasc) 10 mg PO QDAY [facility] Last Admin: 11/23/17 09:18 Dose: Not Given Aspirin (Ecotrin) 325 mg PO DAILY [facility] Last Admin: 11/23/17 09:18 Dose: Not Given Carvedilol (Coreg) 25 mg PO BIDCC [facility] Last Admin: 11/23/17 09:18 Dose: Not Given Clopidogrel Bisulfate (Plavix) 75 mg PO DAILY [facility] Last Admin: 11/23/17 09:19 Dose: Not Given Docusate Sodium (Colace) 100 mg PO BID [facility] Last Admin: 11/23/17 09:18 Dose: Not Given Heparin Sodium (Porcine) (Heparin) 5,000 unit SQ Q12 [facility] Last Admin: 11/23/17 09:18 Dose: 5,000 unit Hydralazine HCl (Apresoline) 10 mg IV Q6HP PRN PRN Reason: Hypertension Last Admin: 11/22/17 08:22 Dose: 10 mg Ondansetron HCl (Zofran) 4 mg IV Q4-6HP PRN PRN Reason: Nausea And Vomiting Last Admin: 11/23/17 07:23 Dose: 4 mg Oxycodone HCl (Roxicodone) 10 mg PO Q3HP PRN PRN Reason: Pain Pantoprazole Sodium (Protonix) 40 mg PO QAMAC [facility] Last Admin: 11/23/17 07:20 Dose: Not Given Linaclotide [Linzess (] 290 Mcg Cap) 1 dose PO DAILY [facility] Last Admin: 11/23/17 09:19 Dose: Not Given Senna/Docusate Sodium (Senna Plus Tablet) 1 tab PO HS [facility] Last Admin: 11/22/17 21:17 Dose: Not Given Torsemide (Demadex) 20 mg PO DAILY [facility] Last Admin: 11/23/17 09:18 Dose: Not Given Medical - PN: A/P - Time Spent With Patient Total time spent is greater than 50% in coordination of care (as documented) at patient's floor/unit and/or counseling patient: 25 - 35 minutes (1) Change in mental status Status: Acute Assessment and plan: * Acute change in mental status with frequent myoclonic jerks- suspect polypharmacy/drug effect. continue holding sedatives/hypnotics and opioids including home dose trazodone/fentanyl/opioids/gabapentin. MRI brain today. If negative consider lumbar puncture with opening pressure * ESRD on HD. Managed by nephrology * anemia-stable * History of multiple myeloma- evaluate for brain amyloidosis * history of hypertension. patient refusing home meds at this time * Chronic pain-home meds held * GERD on PPI * full code Plan * MRI brain * HD per nephrology * if MRI brain negative consider lumbar puncture with opening pressure Current Visit: Yes Medical - PN: Qual - Stroke Symptom Onset Unknown: No - VTE Deep Vein Thrombosis/Pulmonary Embolism Present on Admission: No
[2017-11-23 10:23] LABS: Mean Cell Volume 97.8 fL (80.0-100.0); Mean Corpuscular HGB Conc 32.5 g/dL (31.0-36.0); Mean Corpuscular Hemoglobin 31.8 pg (26.0-34.0); Platelet Count 417 K/mcL (140-440); RBC 3.03 M/mcL (4.50-5.90); Red Cell Distribution Width 20.6 % (11.5-14.5)
[2017-11-23 10:55] LABS: Anisocytosis 1+ (NONE SEEN); Eosinophils % (Manual) 3 % (0-7); Lymphocytes % 7 % (15-49); Monocytes % (Manual) 17 % (1-12); Platelet Estimate NORMAL (NORMAL); RBC Morphology ABNORM (NORMAL); Segmented Neutrophils % 73 % (38-78)
--- NOTE | 2017-11-23 12:27 | Magnetic Resonance Report ---
CLINICAL INFORMATION: endstage renal failure with increasing lethargy and confusion COMPARISON: None. TECHNIQUE:Sagittal T1 FLAIR, axial T1 FLAIR, T2 FLAIR propeller, T2 propeller, gradient, diffusion, ADC and coronal T2 weighted images were acquired. FINDINGS: There are a few small scattered high signal lesions in the periphery of the centrum semiovale in the frontal and parietal lobes. These are only 1 to 3 mm in size and have no mass effect or restricted diffusion. No cortical lesion is present. There is no evidence for mass or hemorrhage. The ventricles and cisterns are normal. There is a retention cyst in the left sphenoid sinus. IMPRESSION: Minor white matter changes in the frontal and parietal lobes. This is probably an incidental finding and could be due to early onset white matter ischemia or degeneration. This is unlikely related to the patient's new symptoms. The exam is otherwise normal. Interpreted and Authenticated by: Yordy Chavez 11/23/17
[2017-11-23] MEDS: SENNOSIDES/DOCUSATE SODIUM 1 TAB TABLET PO SCH (20:17)
[2017-11-24 06:38] LABS: Mean Cell Volume 98.3 fL (80.0-100.0); Mean Corpuscular HGB Conc 32.1 g/dL (31.0-36.0); Mean Corpuscular Hemoglobin 31.5 pg (26.0-34.0); Platelet Count 350 K/mcL (140-440); RBC 2.75 M/mcL (4.50-5.90); Red Cell Distribution Width 20.8 % (11.5-14.5)
[2017-11-24 07:06] LABS: ALT/SGPT 5 U/l (0-40); Albumin 3.1 gm/dL (3.2-5.2); Albumin/Globulin Ratio 1.5 (1.0-2.3); Alkaline Phosphatase 64 U/L (39-117); Bilirubin,Direct < 0.2 mg/dL (0.0-0.3); Blood Urea Nitrogen 8 mg/dl (6-20); Gamma Glutamyl Transpeptidase 4 U/L (8-61); Uric Acid 2.1 mg/dL (2.5-8.0)
[2017-11-24] MEDS: hydrALAZINE 20 MG/ML VIAL IV PRN (07:56)
[2017-11-24] MEDS: PANTOPRAZOLE 40 MG TABLET PO SCH (08:00)
[2017-11-24 08:27] LABS: Anisocytosis 1+ (NONE SEEN); Eosinophils % (Manual) 3 % (0-7); Lymphocytes % 13 % (15-49); Monocytes % (Manual) 16 % (1-12); Platelet Estimate NORMAL (NORMAL); RBC Morphology ABNORM (NORMAL); Segmented Neutrophils % 68 % (38-78)
[2017-11-24] MEDS: DOCUSATE SODIUM 100 MG CAPSULE PO SCH ×2 (10:10→20:05)
[2017-11-24] MEDS: TORSEMIDE 10 MG TABLET PO SCH (10:10)
[2017-11-24] MEDS: HEPARIN 5,000 UNIT/ML VIAL SQ SCH ×2 (10:10→20:05)
[2017-11-24] MEDS: CARVEDILOL 12.5 MG TABLET PO SCH ×2 (10:10→17:38)
[2017-11-24] MEDS: CLOPIDOGREL 75 MG TABLET PO SCH (10:10)
[2017-11-24] MEDS: ACYCLOVIR 400 MG TABLET PO SCH (10:10)
[2017-11-24] MEDS: amLODIPine 10 MG TABLET PO SCH (10:11)
[2017-11-24] MEDS: ASPIRIN 325 MG ENTERIC COATED TABLET PO SCH (10:11)
[2017-11-24] MEDS: ACETAMINOPHEN 325 MG TABLET PO PRN ×2 (13:33→20:05)
--- NOTE | 2017-11-24 17:04 | Nephrology Progress Note ---
Subjective Patient information: Note initiated : 11/24/17 at 5:00 pm Service Date, if different from initiated Date: [] Patient: Jamal Blanc 52 y/o M admitted on 11/21/17 for Weakness, Confusion , Shakey/Mental Status Change. Chief Complaint: [] Principal diagnosis: End Stage Renal Disease Interval history: no new issues remains confused, repeats himself though he has some improvement in his mental status since his admission, his myclonic tremors are much improved no SOB, edema a little better did eat this am, could not recollect what but knew he ate refuses to participate in PT no other concerns Pertinent ROS: as above Objective - Vital Signs Vital signs: Vital Signs Temp Pulse Pulse Resp BP BP Pulse Ox 11/24/17 16:00 98.6 F 18 142/72 94 11/24/17 12:00 100.6 F H 75 20 138/74 98 11/24/17 07:54 99.6 F H 52 L 12 177/78 95 11/24/17 04:00 99.1 F H 70 10 L 177/82 96 11/24/17 00:00 100.3 F H 67 14 143/77 95 11/23/17 20:00 98.5 F 66 12 152/84 97 11/23/17 18:35 99.2 F H 65 151/93 11/23/17 18:28 61 211/92 11/23/17 18:13 64 228/98 11/23/17 17:57 62 208/82 11/23/17 17:43 62 211/89 11/23/17 17:29 63 227/95 11/23/17 17:14 99.2 F H 64 209/83 Intake and Output 11/24/17 11/24/17 11/24/17 05:59 13:59 21:59 Intake Total 20 / 20 60 / 60 Output Total 20 / 20 Balance 0 / 0 60 / 60 Intake: Oral 20 / 20 60 / 60 Output: Emesis 20 / 20 Other: Meal Breakfast Percent of Meal Consumed 25% Feeding Ability Independent # Voids 1 1 # Bowel Movements 1 Weight 149 lb 8 oz Patient Weight 11/25/17 05:59 Weight 149 lb 8 oz Intake & Output: Intake & Output 11/24/17 11/24/17 11/24/17 05:59 13:59 21:59 Intake Total 20 / 20 60 / 60 Output Total Balance 0 / 0 60 Weight 149 lb 8 oz Intake: Oral 60 Output: Emesis Other: Meal Breakfast Percent of Meal Consumed 25% Feeding Ability Independent # Voids 1 1 # Bowel Movements 1 - General Appearance General appearance: appears started age, chronically ill EENT: mucous membranes moist Neck: no JVD Respiratory: clear Cardiology: edema (UE), normal S1, normal S2 Gastrointestinal: no tenderness, no guarding Integumentary: warm and dry Neurologic: confused Musculoskeletal: no erythema, no cyanosis Psychiatric: mood/affect appropriate (? HAS COMPONENT OF depression) - Lab 11/24/17 04:52 11/24/17 04:52 Most recent lab results Calcium 7.8 mg/dl (8.6-10.4) L 11/24/17 04:52 Phosphorus 2.2 mg/dL (2.7-4.5) L 11/24/17 04:52 Magnesium 1.9 mg/dL (1.6-2.5) 11/24/17 04:52 Assessment and Plan (1) ESRD (end stage renal disease) on dialysis Status: Chronic Priority: Medium (2) Acute encephalopathy mental status slowly improving MRI brain with some white matter disease, nothing significant AMS ? related to overuse ofpain meds and gabapentin discussed with Dr Du will monitor for now Will plan for dialysis again tomorrow did request to eventually re evaluate for depression as patient has had significant decline since his mother will also re initiate IDPN during dialysis as he has very poor po intake for a while Will follow along Appreciate hospitalist help in managing this pt Status: Acute Priority: High
--- NOTE | 2017-11-24 19:53 | Internal Med Progress Note ---
Medical - PN: Subj Patient information: Note initiated : 11/24/17 at 7:51 pm Service Date, if different from initiated Date: [] Patient: Jamal Blanc 52 y/o M admitted on 11/21/17 for Weakness, Confusion , Shakey/Mental Status Change. Chief Complaint: f/u encephalopathy Interval history: 11/21-patient admitted with significant change in mental status progressive over the last few days. Unable to converse. Frequent myoclonic jerks. Admitted for further evaluation. Notably patient is on 100 g of fentanyl/10 oxycodone every 3 hours/abapentin/trazodone. All medications were discontinued including fentanyl patch that was removed. Patient is due for dialysis in 24 hours 11/22-patient slightly more awake however persistent confusion. Unable to form a sentence. Denies pain. Hemodialysis today. We'll continue to reevaluate and if no clinical improvement 24 hours with initiate further workup including MRI brain/CSF studies. No fever chills or abnormal labs other than consistent with ESRD on hemodialysis, stablel hemodynamics 11/23- Persistent confusion. MRI brain today. Case discussed with nephrology. Patient hasn't really improved despite hemodialysis and holding fentanyl/ gabapentin. DC oxycodone. if MRI brain unremarkable consider lumbar puncture with opening pressure, however no photophobia fever neck stiffness or leukocytosis. ongoing hemodialysis.CBC pending.biochemical profile unremarkable with normal calcium and sodium. sats on room air. 11/24-mental status has continued to slowly improve with time and hemodialysis. MRI generally unremarkable yesterday. In late afternoon, the patient's complaining of IV access site in the antecubital fossa is bothering him. Occasionally has word finding problems when carrying on discussion, though appears to be significantly improved from the time of admission. Not repeating himself is much late this afternoon as he was late afternoon when I saw him. - Constitutional Vitals: Vital Signs Temp Pulse Resp BP Pulse Ox 98.6 F 75 18 142/72 94 11/24/17 16:00 11/24/17 12:00 11/24/17 16:00 11/24/17 16:00 11/24/17 16:00 Period Temp Pulse Resp BP Sys/Rossi Pulse Ox Last 24 Hr 98.5 F-100.6 F 52-75 10-20 138-177/72-84 94-98 Intake and Output 11/24/17 11/24/17 11/24/17 05:59 13:59 21:59 Intake Total 20 / 20 60 / 60 100 / 100 Output Total 20 / 20 Balance 0 / 0 60 / 60 100 / 100 Weight 149 lb 8 oz Patient Weight 11/25/17 05:59 Weight 149 lb 8 oz Intake & Output: Intake & Output 11/24/17 11/24/17 11/24/17 05:59 13:59 21:59 Intake Total 20 / 20 60 / 60 100 / 100 Output Total 20 / 20 Balance 0 / 0 60 / 60 100 / 100 Weight 149 lb 8 oz Intake: Oral 20 / 20 60 / 60 100 / 100 Output: Emesis 20 / 20 Other: Meal Breakfast Dinner Percent of Meal Consumed 25% 25% Feeding Ability Independent Independent # Voids 1 1 # Bowel Movements 1 Exam: General: Awake, alert, makes good eye contact Chest: Clear, unlabored Cardiovascular: Regular, no edema Abdomen: Soft, nontender Neuro: Alert, oriented to self, being in the hospital, agrees that medications may have been causing side effects that led him to be hospitalized. No myoclonic jerking. Medical - PN: Obj Da - Labs CBC & Chem 7: 11/24/17 04:52 11/24/17 04:52 Labs: Abnormal Lab Results 11/24/17 11/24/17 11/23/17 04:52 04:52 09:54 RBC 2.75 L 3.03 L Hgb 8.7 L 9.6 L Hct 27.0 L 29.6 L RDW 20.8 H 20.6 H Lymphocytes % 13 L 7 L Monocytes % (Manual) 16 H 17 H Eosinophils % (Manual) Basophils % (Manual) RBC Morphology Abnorm A Abnorm A Anisocytosis 1+ A 1+ A Chloride Anion Gap BUN Creatinine 3.0 H Glucose Uric Acid 2.1 L Calcium 7.8 L Phosphorus 2.2 L GGT 4 L Lactate Dehydrogenase Total Protein 5.2 L Albumin 3.1 L Globulin 2.1 L Triglycerides 11/23/17 11/22/17 11/21/17 05:11 04:26 18:06 RBC Hgb Hct RDW Lymphocytes % 14 L Monocytes % (Manual) 13 H Eosinophils % (Manual) 8 H Basophils % (Manual) 3 H RBC Morphology Abnorm A Anisocytosis 1+ A Chloride 95 L Anion Gap 21.0 H 19.0 H BUN 23 H 70 H Creatinine 5.4 H* 10.8 H* Glucose 64 L Uric Acid 8.7 H Calcium 8.1 L 7.5 L Phosphorus 2.3 L GGT 4 L 3 L Lactate Dehydrogenase 258 H Total Protein 5.7 L 5.5 L Albumin 3.1 L Globulin Triglycerides 166 H 193 H Meds: Medications Acetaminophen (Tylenol) 650 mg PO Q4-6HP PRN PRN Reason: PAIN/FEVER > 101 Last Admin: 11/24/17 13:33 Dose: 650 mg Acyclovir (Zovirax) 400 mg PO QDAY [facility] Last Admin: 11/24/17 10:10 Dose: 400 mg Amlodipine Besylate (Norvasc) 10 mg PO QDAY [facility] Last Admin: 11/24/17 10:11 Dose: 10 mg Aspirin (Ecotrin) 325 mg PO DAILY [facility] Last Admin: 11/24/17 10:11 Dose: 325 mg [facility] Last Admin: 11/24/17 17:38 Dose: 25 mg Clopidogrel Bisulfate (Plavix) 75 mg PO DAILY [facility] Last Admin: 11/24/17 10:10 Dose: 75 mg Docusate Sodium (Colace) 100 mg PO BID [facility] Last Admin: 11/24/17 10:10 Dose: 100 mg Heparin Sodium (Porcine) (Heparin) 5,000 unit SQ Q12 [facility] Last Admin: 11/24/17 10:10 Dose: 5,000 unit Hydralazine HCl (Apresoline) 10 mg IV Q6HP PRN PRN Reason: Hypertension Last Admin: 11/24/17 07:56 Dose: 10 mg Ondansetron HCl (Zofran) 4 mg IV Q4-6HP PRN PRN Reason: Nausea And Vomiting Last Admin: 11/23/17 07:23 Dose: 4 mg Pantoprazole Sodium (Protonix) 40 mg PO QAMAC [facility] Last Admin: 11/24/17 08:00 Dose: Not Given Linaclotide [Linzess (] 290 Mcg Cap) 1 dose PO DAILY [facility] Last Admin: 11/24/17 10:11 Dose: Not Given Senna/Docusate Sodium (Senna Plus Tablet) 1 tab PO HS [facility] Last Admin: 11/23/17 20:17 Dose: Not Given Torsemide (Demadex) 20 mg PO DAILY [facility] Last Admin: 11/24/17 10:10 Dose: 20 mg - Imaging and cardiology MRI - head Status: image reviewed by me Additional comments: IMPRESSION: Minor white matter changes in the frontal and parietal lobes. This is probably an incidental finding and could be due to early onset white matter ischemia or degeneration. This is unlikely related to the patient's new symptoms. The exam is otherwise normal. Medical - PN: A/P - Narrative A/P Narrative: 52-year-old male on hemodialysis for the last 2 years secondary to end-stage renal disease from multiple myeloma presenting with change in mental status. Encephalopathy. Course seems consistent with a toxic/metabolic encephalopathy secondary to renal disease/uremia as well as effects of opioids and other sedative/hypnotics. With time these have continued to slowly improve. MRI unrevealing for other cause. Given clinical improvement, do not feel LP is needed at this time. 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 End-stage renal disease. Plan: Dialysis per nephrology. Hypertension. Patient was refusing home meds, though he is becoming more amenable to medical treatment with clearing of encephalopathy Plan: Continue to monitor. Chronic pain on several opioids at home. Suspect partial source of encephalopathy. Plan: Continue to hold, monitor for evidence of withdrawal. Multiple myeloma. GERD, continues on PPI Medical - PN: Qual - Stroke Symptom Onset Unknown: No - VTE Deep Vein Thrombosis/Pulmonary Embolism Present on Admission: No
[2017-11-24] MEDS: SENNOSIDES/DOCUSATE SODIUM 1 TAB TABLET PO SCH (20:05)
[2017-11-25] MEDS: ACETAMINOPHEN 325 MG TABLET PO PRN ×3 (06:48→17:11)
[2017-11-25] MEDS: PANTOPRAZOLE 40 MG TABLET PO SCH (06:49)
[2017-11-25 08:05] LABS: ALT/SGPT 6 U/l (0-40); Albumin 2.9 gm/dL (3.2-5.2); Albumin/Globulin Ratio 1.1 (1.0-2.3); Alkaline Phosphatase 62 U/L (39-117); Bilirubin,Direct < 0.2 mg/dL (0.0-0.3); Blood Urea Nitrogen 16 mg/dl (6-20); Gamma Glutamyl Transpeptidase < 3 U/L (8-61); Uric Acid 3.6 mg/dL (2.5-8.0)
[2017-11-25] MEDS: HEPARIN 5,000 UNIT/ML VIAL SQ SCH ×2 (09:02→20:29)
[2017-11-25] MEDS: DOCUSATE SODIUM 100 MG CAPSULE PO SCH ×2 (09:02→20:28)
[2017-11-25] MEDS: ASPIRIN 325 MG ENTERIC COATED TABLET PO SCH (12:51)
[2017-11-25] MEDS: ACYCLOVIR 400 MG TABLET PO SCH (12:51)
[2017-11-25] MEDS: CARVEDILOL 12.5 MG TABLET PO SCH ×2 (12:52→20:29)
[2017-11-25] MEDS: amLODIPine 10 MG TABLET PO SCH (12:52)
[2017-11-25] MEDS: TORSEMIDE 10 MG TABLET PO SCH (12:52)
[2017-11-25] MEDS: CLOPIDOGREL 75 MG TABLET PO SCH (12:52)
[2017-11-25] MEDS ORDERED: CALCIUM CARBONATE 500 MG TAB.CHEW CHEWED PRN (14:00)
[2017-11-25] MEDS ORDERED: fentaNYL 50 MCG PATCH TOPICAL ONE ×2 (14:53→15:00)
--- NOTE | 2017-11-25 15:00 | Nephrology Progress Note ---
Subjective Patient information: Note initiated : 11/25/17 at 2:53 pm Service Date, if different from initiated Date: [] Patient: Jamal Blanc 52 y/o M admitted on 11/21/17 for Weakness, Confusion , Shakey/Mental Status Change. Chief Complaint: [] Principal diagnosis: End Stage Renal Disease Interval history: Patient's mental status is much improved he is awake, oriented He is eating better no GI symptoms no myoclonic tremors c/o pain and is requesting pain meds again no other concerns Pertinent ROS: as above Objective - Vital Signs Vital signs: Vital Signs Temp Pulse Pulse Resp BP Pulse Ox 11/25/17 13:25 98.6 F 11/25/17 12:00 99.5 F H 16 148/71 99 11/25/17 07:25 98.8 F 98 H 12 163/70 97 11/25/17 04:43 98.2 F 65 16 163/79 100 11/24/17 23:15 98.8 F 72 12 126/72 11/24/17 19:30 98.9 F 60 12 128/70 98 11/24/17 16:00 98.6 F 18 142/72 94 Intake and Output 11/25/17 11/25/17 11/25/17 05:59 13:59 21:59 Intake Total 200 / 200 400 / 400 Balance 200 / 200 400 / 400 Intake: Oral 200 / 200 400 / 400 Other: Meal Lunch Percent of Meal Consumed 100% # Voids 1 Intake & Output: Intake & Output 11/25/17 11/25/17 11/25/17 05:59 13:59 21:59 Intake Total 200 / 200 400 / 400 Balance 200 / 200 400 / 400 Intake: Oral 200 / 200 400 / 400 Other: Meal Lunch Percent of Meal Consumed 100% # Voids 1 - General Appearance General appearance: appears started age, chronically ill EENT: mucous membranes moist Neck: no JVD Respiratory: clear Cardiology: no rub, normal S1, normal S2 Gastrointestinal: no tenderness, no guarding Integumentary: warm and dry Neurologic: alert and oriented x3 Musculoskeletal: no erythema, no cyanosis Psychiatric: mood/affect appropriate - Lab 11/24/17 04:52 11/25/17 05:37 Most recent lab results Calcium 7.9 mg/dl (8.6-10.4) L 11/25/17 05:37 Phosphorus 2.8 mg/dL (2.7-4.5) 11/25/17 05:37 Magnesium 2.0 mg/dL (1.6-2.5) 11/25/17 05:37 Assessment and Plan (1) ESRD (end stage renal disease) on dialysis Patient dialysed tuesday and mental status much improved no K issues, no acidosis fluid status stable no emergent need fo SENIOR JAVA ARCHITECT today, will be dialysed as outpt tomorrow after discharge 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 related to overuse ofpain meds and gabapentin discussed with Dr Du will monitor for now Will plan for dialysis again tomorrow did request to eventually re evaluate for depression as patient has had significant decline since his mother will also re initiate IDPN during dialysis as he has very poor po intake for a while Will follow along Appreciate hospitalist help in managing this pt Status: Acute Priority: High
--- NOTE | 2017-11-25 20:21 | Internal Med Progress Note ---
Medical - PN: Subj Patient information: Note initiated : 11/25/17 at 8:19 pm Service Date, if different from initiated Date: [] Patient: Jamal Blanc 52 y/o M admitted on 11/21/17 for Weakness, Confusion , Shakey/Mental Status Change. Chief Complaint: f/u encephalopathy Interval history: 11/21-patient admitted with significant change in mental status progressive over the last few days. Unable to converse. Frequent myoclonic jerks. Admitted for further evaluation. Notably patient is on 100 g of fentanyl/10 oxycodone every 3 hours/abapentin/trazodone. All medications were discontinued including fentanyl patch that was removed. Patient is due for dialysis in 24 hours 11/22-patient slightly more awake however persistent confusion. Unable to form a sentence. Denies pain. Hemodialysis today. We'll continue to reevaluate and if no clinical improvement 24 hours with initiate further workup including MRI brain/CSF studies. No fever chills or abnormal labs other than consistent with ESRD on hemodialysis, stablel hemodynamics 11/23- Persistent confusion. MRI brain today. Case discussed with nephrology. Patient hasn't really improved despite hemodialysis and holding fentanyl/ gabapentin. DC oxycodone. if MRI brain unremarkable consider lumbar puncture with opening pressure, however no photophobia fever neck stiffness or leukocytosis. ongoing hemodialysis.CBC pending.biochemical profile unremarkable with normal calcium and sodium. sats on room air. 11/24-mental status has continued to slowly improve with time and hemodialysis. MRI generally unremarkable yesterday. In late afternoon, the patient's complaining of IV access site in the antecubital fossa is bothering him. Occasionally has word finding problems when carrying on discussion, though appears to be significantly improved from the time of admission. Not repeating himself is much late this afternoon as he was late afternoon when I saw him. pproaching baseline mental status. Starting to complain of pain. Up walking around in his room. Does not want much intervention from nursing most of the time. Agrees that he was on too great of a dose of opioids and gabapentin. Pain is in his hands from his multiple myeloma. Also clarify that he takes 40 mg of dexamethasone every Tuesday. - Constitutional Vitals: Vital Signs Temp Pulse Resp BP Pulse Ox 98.5 F 98 H 16 140/85 97 11/25/17 15:26 11/25/17 07:25 11/25/17 15:26 11/25/17 15:26 11/25/17 15:26 Period Temp Pulse Resp BP Sys/Rossi Pulse Ox Last 24 Hr 98.2 F-99.5 F 65-98 12-16 126-163/70-85 97-100 Intake and Output 11/25/17 11/25/17 11/25/17 05:59 13:59 21:59 Intake Total 200 / 200 400 / 400 200 / 200 Balance 200 / 200 400 / 400 200 / 200 Intake & Output: Intake & Output 11/25/17 11/25/17 11/25/17 05:59 13:59 21:59 Intake Total 200 / 200 400 / 400 200 / 200 Balance 200 / 200 400 / 400 200 / 200 Intake: Oral 200 / 200 400 / 400 200 / 200 Other: Meal Lunch Percent of Meal Consumed 100% # Voids 1 1 Exam: General: Laying in bed, awake, alert, no distress Chest: Clear, unlabored Cardiovascular: Regular rate with 1/6 systolic murmur Abdomen: Soft, nontender Neuro: Alert, oriented to person, place, date, situation. Speech is fluent. No myoclonic jerking. Medical - PN: Obj Da - Labs CBC & Chem 7: 11/24/17 04:52 11/25/17 05:37 Labs: Abnormal Lab Results 11/25/17 11/24/17 11/24/17 05:37 04:52 04:52 RBC 2.75 L Hgb 8.7 L Hct 27.0 L RDW 20.8 H Lymphocytes % 13 L Monocytes % (Manual) 16 H RBC Morphology Abnorm A Anisocytosis 1+ A Anion Gap BUN Creatinine 4.7 H 3.0 H Glucose Uric Acid 2.1 L Calcium 7.9 L 7.8 L Phosphorus 2.2 L GGT < 3 L 4 L Lactate Dehydrogenase Total Protein 5.5 L 5.2 L Albumin 2.9 L 3.1 L Globulin 2.1 L Triglycerides 164 H 11/23/17 11/23/17 09:54 05:11 RBC 3.03 L Hgb 9.6 L Hct 29.6 L RDW 20.6 H Lymphocytes % 7 L Monocytes % (Manual) 17 H RBC Morphology Abnorm A Anisocytosis 1+ A Anion Gap 21.0 H BUN 23 H Creatinine 5.4 H* Glucose 64 L Uric Acid Calcium 8.1 L Phosphorus 2.3 L GGT 4 L Lactate Dehydrogenase 258 H Total Protein 5.7 L Albumin Globulin Triglycerides 166 H Meds: Medications Acetaminophen (Tylenol) 650 mg PO Q4-6HP PRN PRN Reason: PAIN/FEVER > 101 Last Admin: 11/25/17 17:11 Dose: 650 mg Acyclovir (Zovirax) 400 mg PO QDAY [facility] Last Admin: 11/25/17 12:51 Dose: 400 mg Amlodipine Besylate (Norvasc) 10 mg PO QDAY [facility] Last Admin: 11/25/17 12:52 Dose: 10 mg Aspirin (Ecotrin) 325 mg PO DAILY [facility] Last Admin: 11/25/17 12:51 Dose: 325 mg Calcium Carbonate/Glycine (Tums) 1,000 mg CHEWED TIDCC PRN PRN Reason: Heartburn Last Admin: 11/25/17 14:33 Dose: 1,000 mg [facility] Last Admin: 11/25/17 12:52 Dose: 25 mg Clopidogrel Bisulfate (Plavix) 75 mg PO DAILY [facility] Last Admin: 11/25/17 12:52 Dose: 75 mg Dexamethasone (Decadron) 40 mg PO SA [facility] Docusate Sodium (Colace) 100 mg PO BID [facility] Last Admin: 11/25/17 09:02 Dose: 100 mg Gabapentin (Neurontin) 100 mg PO HS [facility] Heparin Sodium (Porcine) (Heparin) 5,000 unit SQ Q12 [facility] Last Admin: 11/25/17 09:02 Dose: 5,000 unit Hydralazine HCl (Apresoline) 10 mg IV Q6HP PRN PRN Reason: Hypertension Last Admin: 11/24/17 07:56 Dose: 10 mg Ondansetron HCl (Zofran) 4 mg IV Q4-6HP PRN PRN Reason: Nausea And Vomiting Last Admin: 11/23/17 07:23 Dose: 4 mg Pantoprazole Sodium (Protonix) 40 mg PO QAMAC [facility] Last Admin: 11/25/17 06:49 Dose: 40 mg Linaclotide [Linzess (] 290 Mcg Cap) 1 dose PO DAILY [facility] Last Admin: 11/25/17 12:52 Dose: Not Given Senna/Docusate Sodium (Senna Plus Tablet) 1 tab PO HS [facility] Last Admin: 11/24/17 20:05 Dose: 1 tab Torsemide (Demadex) 20 mg PO DAILY [facility] Last Admin: 11/25/17 12:52 Dose: 20 mg Medical - PN: A/P - Time Spent With Patient Total time spent is greater than 50% in coordination of care (as documented) at patient's floor/unit and/or counseling patient: 25 - 35 minutes - Narrative A/P Narrative: 52-year-old male on hemodialysis for the last 2 years secondary to end-stage renal disease from multiple myeloma presenting with change in mental status. Encephalopathy. Improved/resolved. Course seems consistent with a toxic/ metabolic encephalopathy secondary to renal disease/uremia as well as effects of high dose opioids and other sedative/hypnotics. MRI unrevealing for other cause. Given clinical improvement, do not feel LP is needed at this time. Plan: D/W Dr. Guadarrama, resuming lower dose (50 mcg/hr) fentanyl and gabapentin ( 100 mg at HS). End-stage renal disease. Plan: Dialysis per nephrology, next planned for tomorrow. Hypertension. Resuming home medications. Plan: Continue to monitor. Chronic pain on several opioids at home. Suspect partial source of encephalopathy along with uremia and gabapentin. Plan: Cautious resumption of lower doses as above. Multiple myeloma. Plan: Dexamethasone ordered for Tuesday. GERD, continues on PPI Medical - PN: Qual - Stroke Symptom Onset Unknown: No - VTE Deep Vein Thrombosis/Pulmonary Embolism Present on Admission: No
[2017-11-25] MEDS: SENNOSIDES/DOCUSATE SODIUM 1 TAB TABLET PO SCH (20:29)
[2017-11-25] MEDS ORDERED: GABAPENTIN 100 MG CAPSULE PO SCH (21:00)
[2017-11-26] MEDS: PANTOPRAZOLE 40 MG TABLET PO SCH (07:32)
[2017-11-26 07:35] LABS: ALT/SGPT 5 U/l (0-40); Albumin 2.6 gm/dL (3.2-5.2); Albumin/Globulin Ratio 1.1 (1.0-2.3); Alkaline Phosphatase 59 U/L (39-117); Bilirubin,Direct < 0.2 mg/dL (0.0-0.3); Blood Urea Nitrogen 20 mg/dl (6-20); Gamma Glutamyl Transpeptidase 4 U/L (8-61); Uric Acid 4.4 mg/dL (2.5-8.0)
[2017-11-26] MEDS ORDERED: DEXAMETHASONE 4 MG TABLET PO SCH (09:00)
[2017-11-26] MEDS: CARVEDILOL 12.5 MG TABLET PO SCH (09:37)
--- NOTE | 2017-11-26 10:23 | Discharge Summary ---
Medical - DS: Prov Patient information: Note initiated : 11/26/17 at 10:21 am Service Date, if different from initiated Date: [] Patient: Jamal Blanc 52 y/o M admitted on 11/21/17 for Weakness, Confusion , Shakey/Mental Status Change. Date of admission: 11/21/17 23:31 Discharge date: 11/26/17 Primary care physician: Doris Bess Admitting clinician: Franky Benavidez Consults: 11/21/17 22:10 Consult to Physician [CONS] Stat Comment: Consulting Provider: Franky Benavidez Reason For Exam: Physician to Consult Discharging clinician: Shelly Heath Medical - DS: Meds - Discharge Medications Prescriptions: fentaNYL [Fentanyl] 50 mcg TD Q72 #1 patch.td72 Gabapentin [Neurontin] 100 mg PO HS #30 cap Active and Home Medications: Home Medications Pantoprazole [Protonix] 40 mg PO QAMAC tab 02/13/16 [Rx Confirmed 11/21/17 Last Taken 03/14/17] Torsemide [Demadex] 20 mg PO BID 03/06/16 [History Confirmed 11/21/17 Last Taken 03/14/17] Aspirin [Aspirin EC] 325 mg PO DAILY 03/15/17 [History Confirmed 11/21/17 Last Taken Unknown] acyclovir 400 mg tablet 400 mg PO BID tab 11/02/17 [History Confirmed 11/25/17 Last Taken Unknown] carvedilol 25 mg tablet 25 mg PO BID #60 tab 11/15/17 [Rx Confirmed 11/21/17 Last Taken Unknown] Sevelamer [Renvela] 800 mg PO TIDCC 11/21/17 [History Confirmed 11/25/17 Last Taken Unknown] amlodipine 10 mg tablet 10 mg PO QDAY #30 tab 11/21/17 [Rx Confirmed 11/21/17 Last Taken Unknown] Dexamethasone [Decadron] 40 mg PO SA 11/25/17 [History Confirmed 11/25/17 Last Taken Unknown] Prochlorperazine Maleate [Compazine] 1 tab PO Q6HP PRN 11/25/17 [History Confirmed 11/25/17 Last Taken Unknown] traZODone HCL [Trazodone HCl] 1 tab PO HS 11/25/17 [History Confirmed 11/25/17 Last Taken Unknown] Gabapentin [Neurontin] 100 mg PO HS #30 cap 11/26/17 [Rx Last Taken Unknown] fentaNYL [Fentanyl] 50 mcg TD Q72 #1 patch.td72 11/26/17 [Rx Last Taken Unknown] Medical - DS: Hosp Hospital course: 11/21-patient admitted with significant change in mental status progressive over the last few days. Unable to converse. Frequent myoclonic jerks. Admitted for further evaluation. Notably patient is on 100 g of fentanyl/10 oxycodone every 3 hours/abapentin/trazodone. All medications were discontinued including fentanyl patch that was removed. Patient is due for dialysis in 24 hours 11/22-patient slightly more awake however persistent confusion. Unable to form a sentence. Denies pain. Hemodialysis today. We'll continue to reevaluate and if no clinical improvement 24 hours with initiate further workup including MRI brain/CSF studies. No fever chills or abnormal labs other than consistent with ESRD on hemodialysis, stablel hemodynamics 11/23- Persistent confusion. MRI brain today. Case discussed with nephrology. Patient hasn't really improved despite hemodialysis and holding fentanyl/ gabapentin. DC oxycodone. if MRI brain unremarkable consider lumbar puncture with opening pressure, however no photophobia fever neck stiffness or leukocytosis. ongoing hemodialysis.CBC pending.biochemical profile unremarkable with normal calcium and sodium. sats on room air. 11/24-mental status has continued to slowly improve with time and hemodialysis. MRI generally unremarkable yesterday. In late afternoon, the patient's complaining of IV access site in the antecubital fossa is bothering him. Occasionally has word finding problems when carrying on discussion, though appears to be significantly improved from the time of admission. Not repeating himself is much late this afternoon as he was late afternoon when I saw him. 2/2-approaching baseline mental status. Starting to complain of pain. Up walking around in his room. Does not want much intervention from nursing most of the time. Agrees that he was on too great of a dose of opioids and gabapentin. Pain is in his hands from his multiple myeloma. Also clarify that he takes 40 mg of dexamethasone every Tuesday. 2/3-plans to get dialysis the facility after discharge this morning. Agrees that he will avoid opioids beyond fentanyl patch. He will also use gabapentin 100 mg at bedtime for pain. Overall the patient's presentation is consistent with a toxic/metabolic encephalopathy from the effects of accumulation of opioids, gabapentin as well as likely some uremia. Fentanyl patch for hand pain from multiple myeloma was decreased to 50 g per 24 hours. Gabapentin decreased to 100 mg at bedtime, renally dosed. High-dose oxycodone was stopped. Family meeting was held between case management, the patient as well as family. Dr. Guadarrama also met with patient and family. Recommendations for new pain medications were agreed upon by patient as well as family. Patient's father took opioids that were available at the patient's home to the [facility] for disposal. The only remaining opioid at home as his 50 g per hour fentanyl patch (previously had both 100 and 50 patches to equal 150 g per 24 hours). There may have been a component of depression underlying his affect at baseline. She is encouraged to be addressed further as an outpatient once she is stable on new medication regimen for pain. Discharge diagnosis: Encephalopathy-toxic/metabolic Secondary discharge diagnosis: End-stage renal disease Multiple myeloma - Time Spent with Patient Total time spent providing and/or coordinating discharge services: Greater than 30 minutes Medical - DS: Exam - Constitutional Vitals: Vital Signs Temp Pulse Resp BP Pulse Ox 11/26/17 07:18 98.4 F 18 137/75 96 11/26/17 04:00 98.8 F 60 16 145/68 97 11/26/17 00:00 98.2 F 69 14 130/76 94 11/25/17 20:00 98.3 F 76 16 136/81 98 11/25/17 15:26 98.5 F 16 140/85 97 11/25/17 13:25 98.6 F 11/25/17 12:00 99.5 F H 16 148/71 99 Intake and Output 11/25/17 11/26/17 11/26/17 21:59 05:59 13:59 Intake Total 200 / 200 360 / 360 100 / 100 Balance 200 / 200 360 / 360 100 / 100 Intake: Oral 200 / 200 360 / 360 100 / 100 Other: Meal Breakfast Percent of Meal Consumed 75% # Voids 1 1 Weight 151 lb 8 oz Additional comments: General: Laying in bed in no acute distress Chest: Clear, no rales Cardiovascular regular, no murmur, no edema Abdomen: Soft, nontender Neuro: Alert, oriented 3, conversant, thought processes linear. Ambulating independently. Medical - DS: Data Labs on day of discharge: Labs from last 24 hours 11/26/17 04:58 Sodium 141 Potassium 3.4 Chloride 99 Carbon Dioxide 31 H Anion Gap 11.0 BUN 20 Creatinine 6.0 H* GFR Calculation 10 Glucose 86 Uric Acid 4.4 Calcium 7.5 L Phosphorus 2.9 Magnesium 2.0 Total Bilirubin 0.3 Direct Bilirubin < 0.2 GGT 4 L AST 6 ALT 5 Alkaline Phosphatase 59 Lactate Dehydrogenase 188 Total Protein 5.0 L Albumin 2.6 L Globulin 2.4 Albumin/Globulin Ratio 1.1 Triglycerides 173 H - Imaging and Cardiology MRI - head Additional comments: IMPRESSION: Minor white matter changes in the frontal and parietal lobes. This is probably an incidental finding and could be due to early onset white matter ischemia or degeneration. This is unlikely related to the patient's new symptoms. The exam is otherwise normal. CT scan - head Additional comments: Impression: Stable mild age-related degenerative changes and no acute abnormality. Medical - DS: A/P - Patient/Caregiver Discharge Instructions Activity: increase activity as tolerated Diet: Renal Prescriptions: fentaNYL [Fentanyl] 50 mcg TD Q72 #1 patch.td72 Gabapentin [Neurontin] 100 mg PO HS #30 cap - Follow up Plan Follow up with: Doris Bess DO [Primary Care Provider] - Disposition: Home, Self-Care Prognosis: Fair Rehab Potential: Fair Overall status at discharge: patient is back to baseline Medical - DS: Qual - VTE Deep Vein Thrombosis/Pulmonary Embolism Present on Admission: No
== END 2017-11-26 11:40 | disposition home or self-care (01) | DRG 91 ==
LOC: MEDSUR 17:36 → ED 17:36 → OBSVTOIN 23:31 → MEDSUR 23:31
PROVIDERS: ADMIT Internal Medicine; ATTEND Internal Medicine

== ENCOUNTER 2018-06-06 08:57 | Inpatient (IN) ==
[2018-06-06] MEDS ORDERED: ACETAMINOPHEN 325 MG TABLET PO ONE (09:03)
--- NOTE | 2018-06-06 09:33 | Emergency Department Note ---
Fever HPI - General Chief Complaint: Fever Stated Complaint: Fever, Short of Breath, N/V/D. Time Seen by Provider: 06/06/18 09:29 Source: patient Mode of arrival: EMS Limitations: no limitations - History of Present Illness HPI Narrative: This pleasant 52-year-old medically complex patient reports a fever first noted by checking last evening at 100.4. He was found to have a fever that was 100.8 or above at dialysis or after dialysis today. Labs were drawn then and he was sent to the emergency room. He has no exposure to tuberculosis. He is on chronic prednisone for amyloidosis and has end-stage renal disease. REVIEW OF SYSTEMS: Has some chills and that he feels cold now. Had sweats last p.m. Some mild ear pain and plugging and gurgling sensation of the left side. No throat pain. Has some runny nose that is chronic and a little bit worse but there is a lot of smoke in the environment. No nasal congestion. Has chest pain with deep respirations that began about 3 days ago. Denies palpitations but has a history of a heart murmur. He has a low-grade mild cough that is stable. He has new shortness of breath. He does not use oxygen at home. He has some mild abdominal pain he relates to constipation most likely. He denies nausea, vomiting, diarrhea, hematochezia. Denies dysuria, frequency, urgency or incontinence but has some hesitancy. Now feeling some lightheaded and dizziness. He was dialyzed 2.4 L this morning he reports. No anxiety. Admits to depression and is under treatment. - Related Data Home Medications Medication Instructions Recorded Confirmed Aspirin [Aspirin EC] 325 mg PO DAILY 03/15/17 06/06/18 acyclovir 400 mg tablet 400 mg PO BID tab 11/02/17 11/25/17 Dexamethasone [Decadron] 40 mg PO SA 11/25/17 11/25/17 Prochlorperazine Maleate 1 tab PO Q6HP PRN 11/25/17 11/25/17 [Compazine] hydrocodone 10 mg-acetaminophen 1 tab PO Q8H PRN tab 12/15/17 06/06/18 325 mg tablet pomalidomide 3 mg capsule 3 mg PO QDAY 12/15/17 fentaNYL [Fentanyl] 75 mcg TD Q72 06/06/18 06/06/18 Previous Rx's Medication Instructions Recorded carvedilol 25 mg tablet 25 mg PO BID #60 tab 11/15/17 amlodipine 10 mg tablet 10 mg PO QDAY #30 tab 11/21/17 sevelamer carbonate 800 mg tablet 800 mg PO TIDCC #150 tab 01/03/18 torsemide 20 mg tablet 20 mg PO BID #60 tab 01/13/18 gabapentin 100 mg capsule 100 mg PO BID #60 cap 03/30/18 Allergies Allergy/AdvReac Type Severity Reaction Status Date / Time Iodinated Contrast- Oral and Allergy Intermediate Unknown Verified 11/02/17 08: 43 IV Dye [Iodinated Contrast Media - IV Dye] iodine Allergy Intermediate Unknown Verified 11/02/17 08:43 Penicillins Allergy Intermediate Other Verified 11/02/17 08:43 Fever PMH - Past Medical History [facility] Narrative: All Active Problems (Last Reviewed 11/02/17 @ 09:02 by Darron Trent MD) Sepsis (Acute) Anemia (Acute) Gram-positive bacteremia (Acute) Infection, vascular device (Acute) Fever of unknown origin (Acute) Sepsis (Acute) Hypocalcemia (Acute) Chronic renal failure (Acute) Sepsis (Acute) ESRD (end stage renal disease) on dialysis (Chronic) Confusion (Acute) Anemia due to end stage renal disease (Chronic) Acute encephalopathy (Acute) Change in mental status (Acute) Nausea vomiting and diarrhea (Acute) Lung infiltrate on CT (Acute) Allergic reaction (Acute) Anemia (Acute) Muscular disease (Acute) End stage renal disease (Chronic) Hyponatremia with excess extracellular fluid volume (Acute) Vertigo (Acute) Medication withdrawal (Acute) Renal failure (Acute) Nocturnal muscle cramp (Acute) Neuropathy, peripheral (Acute) Chronic kidney disease, stage IV (severe) (Acute) Chronic hyponatremia (Acute) Hyponatremia (Acute) Congestive heart failure (Acute) Fluid overload (Acute) Anemia (Chronic) SIRS (systemic inflammatory response syndrome) (Acute) ESRD (end stage renal disease) on dialysis (Acute) Heart failure with acute decompensation, type unknown (Acute) Myalgia (Acute) Noncompliance with renal dialysis (Acute) Edema (Acute) Kidney failure (Acute) Pain (Acute) Chronic painful diabetic neuropathy (Acute) Dependence on renal dialysis (Acute) Chronic renal failure (Chronic) CHF (congestive heart failure) (Chronic) Right pulmonary infiltrate on CXR (Acute) Pneumonia (Acute) Organic brain syndrome (Chronic) Paresthesia (Chronic) Pain of hand (Chronic) Chronic Kidney Disease (Chronic) Elevated erythrocyte sedimentation rate (Chronic) Antinuclear factor positive (Chronic) Inflammatory arthritis (Chronic) Anxiety disorder (Chronic) Tobacco dependence (Chronic) Reactive airway disease (Chronic) Acute kidney failure (Acute) Hypertension (Chronic) Anemia of chronic disease (Chronic) Hyperphosphatemia (Acute) Hypocalcemia (Acute) Fever (Acute) Hyponatremia (Acute) Past Surgical History (Last Reviewed 11/02/17 @ 09:02 by Darron Trent MD) History of colonoscopy (Chronic 01/30/16) Family History (Last Reviewed 11/02/17 @ 09:02 by Darron Trent MD) Mother No problems noted. Medical history: Reports: arthritis, CHF, COPD, DM, hypertension, renal disease , other Surgical history ED: Reports: other (fistula right upper arm. Angioplasty RUE Dr. Perla.) Psychiatric history: Reports: anxiety (denies Jun 06, 2018.), depression Family history: Reports: non-contributory - Social History smoking status: Unknown if ever smoked Alcohol use: Reports: None (previously alcoholic.), Heavy Drug use: Reports: none (previously a "crankhead" per pt 8-14-18.), methamphetamine. Denies: marijuana Physical Exam Limitations: no limitations General appearance: alert, in no apparent distress Head: atraumatic, normocephalic Eye: Present: EOMI ENT: normal oropharynx, mucous membranes moist, TM's normal bilaterally Neck: Present: trachea midline. Absent: lymphadenopathy, thyromegaly Respiratory: Present: normal lung sounds bilaterally. Absent: respiratory distress, wheezes, stridor, accessory muscle use, prolonged expiratory phase Cardiovascular: Present: normal rhythm, tachycardia, systolic murmur (early systolic, faint, deep, at apex.). Absent: diastolic murmur Abdominal: Present: soft. Absent: distention, tenderness, guarding, rebound, rigidity, organomegaly, mass Extremities: Absent: pedal edema, pretibial edema, calf tenderness Back: Absent: CVA tenderness (R), CVA tenderness (L), spinous process tenderness Neurological: Present: alert, oriented X3 Psychiatric: Present: flat affect (mild seriousness. Good eye contact.) Skin: Present: warm, dry Course Course Narrative: 9:18 AM Fever in a dialysis and immune compromised (chronic steroids) with history of amyloidosis and multiple myeloma. Multiple labs already ordered and done. Chest x-ray is pending. EKG demonstrates mild tachycardia and left atrial enlargement but otherwise unchanged and unremarkable. He is given acetaminophen to lower his temperature. He is on oxygen currently to keep him at 96-97%. Blood culture additional single one was done (previously 1 done near dialysis single). Cefepime and Vanco ordered. Vital Signs Temperature 100.8 F H 06/06/18 08:58 Pulse Rate 111 H 06/06/18 08:58 Respiratory Rate 24 H 06/06/18 08:58 Blood Pressure 166/93 06/06/18 08:58 Pulse Oximetry (%) 94 06/06/18 08:58 Temperature 99.2 F H 06/06/18 11:30 Pulse Rate 98 H 06/06/18 11:31 Respiratory Rate 24 H 06/06/18 11:31 Blood Pressure 157/76 06/06/18 11:31 Pulse Oximetry (%) 98 06/06/18 11:31 Fever - MDM Narrative Medical decision making narrative: 11:45 AM With patient's multiple medical conditions and problems, he is at significant risk of SIRS and sepsis and decompensation. Therefore, admission is the prudent course with IV antibiotics. I spoke with hospitalist, Dr. Raheem Carpio , who kindly accepts this patient's care. He will go to telemetry. Dr. Guadarrama is also aware and will monitor as well. Of note is his source of fever remains unidentified. His congestive heart failure, though not decompensating, has at least led to some O2 requirement. He does have an elevated pro calcitonin at 1.54 but white count was under 11 and lactic acid was 1.1. Blood cultures were obtained. Patient was given cefepime and Vanco. Urine is pending. Flu test is pending. - Medical Records Medical records reviewed: Yes I reviewed the patient's medical records. - Lab Data Lab results reviewed: Yes I reviewed the patient's lab results. Result diagrams: 06/06/18 09:35 06/06/18 09:35 Lab Results 06/06/18 06/06/18 06/06/18 Range/Units 09:35 09:35 09:35 WBC 10.6 (4.5-11.0) K/mcL RBC 2.72 L (4.50-5.90) M/mcL Hgb 9.2 L (13.5-16.5) g/dL Hct 27.4 L (41.0-55.0) % MCV 100.7 H (80.0-100.0) fL MCH 33.9 (26.0-34.0) pg MCHC 33.7 (31.0-36.0) g/dL RDW 18.9 H (11.5-14.5) % Plt Count 403 (140-440) K/mcL MPV 7.8 (7.4-10.4) fL Gran % 74.5 (38.0-78.0) % Lymph % (Auto) 6.9 L (15.5-49.0) % Door % (Auto) 14.7 H (1.0-12.0) % Eos % (Auto) 3.9 (0.0-7.0) % Baso % (Auto) 0 (0.0-2.0) % Gran # 7.9 (1.8-8.0) K/mcL Lymph # (Auto) 0.7 L (1.5-4.8) K/mcL Door # (Auto) 1.6 H (0.1-0.9) K/mcL Eos # (Auto) 0.4 (0.0-0.7) K/mcL Baso # (Auto) 0 (0.0-0.3) K/mcL VBG Lactic Acid 1.1 (0.5-2.2) mmol/L Sodium 131 L (133-145) mmol/L Potassium 3.6 (3.3-5.1) mmol/L Chloride 94 L (96-108) mmol/L Carbon Dioxide 24 (22-30) mmol/L Anion Gap 13.0 (8-16) BUN 27 H (6-20) mg/dl Creatinine 3.3 H (0.7-1.2) mg/dl GFR Calculation 20 Glucose 105 (70-105) mg/dL Calcium 8.0 L (8.6-10.4) mg/dl Total Bilirubin 0.4 (0.0-1.0) mg/dL AST 7 (0-37) U/l ALT 8 (0-40) U/l Alkaline Phosphatase 70 (39-117) U/L Total Protein 5.7 L (5.9-8.4) gm/dL Albumin 3.3 (3.2-5.2) gm/dL Globulin 2.4 (2.2-3.7) gm/dL Albumin/Globulin Ratio 1.4 (1.0-2.3) Procalcitonin (<0.10) ng/mL 06/06/18 Range/Units 09:35 WBC (4.5-11.0) K/mcL RBC (4.50-5.90) M/mcL Hgb (13.5-16.5) g/dL Hct (41.0-55.0) % MCV (80.0-100.0) fL MCH (26.0-34.0) pg MCHC (31.0-36.0) g/dL RDW (11.5-14.5) % Plt Count (140-440) K/mcL MPV (7.4-10.4) fL Gran % (38.0-78.0) % Lymph % (Auto) (15.5-49.0) % Door % (Auto) (1.0-12.0) % Eos % (Auto) (0.0-7.0) % Baso % (Auto) (0.0-2.0) % Gran # (1.8-8.0) K/mcL Lymph # (Auto) (1.5-4.8) K/mcL Door # (Auto) (0.1-0.9) K/mcL Eos # (Auto) (0.0-0.7) K/mcL Baso # (Auto) (0.0-0.3) K/mcL VBG Lactic Acid (0.5-2.2) mmol/L Sodium (133-145) mmol/L Potassium (3.3-5.1) mmol/L Chloride (96-108) mmol/L Carbon Dioxide (22-30) mmol/L Anion Gap (8-16) BUN (6-20) mg/dl Creatinine (0.7-1.2) mg/dl GFR Calculation Glucose (70-105) mg/dL Calcium (8.6-10.4) mg/dl Total Bilirubin (0.0-1.0) mg/dL AST (0-37) U/l ALT (0-40) U/l Alkaline Phosphatase (39-117) U/L Total Protein (5.9-8.4) gm/dL Albumin (3.2-5.2) gm/dL Globulin (2.2-3.7) gm/dL Albumin/Globulin Ratio (1.0-2.3) Procalcitonin 1.56 (<0.10) ng/mL - Radiology Data Radiology results reviewed: Yes I reviewed the patient's radiology results. - EKG Data EKG results narrative: LAE. No acute coronary syndrome findings. This ECG will be read by a division engineer. Disposition Pt seen by CUSTOMER ENGINEER/PA only: No Clinical Impression: Immunocompromised due to corticosteroids, Dialysis patient, Current chronic use of systemic steroids, Chronic pain syndrome, Chronic narcotic use, Anemia, chronic disease, Macrocytosis, Heart murmur, LAE (left atrial enlargement), Hyponatremia, Elevated procalcitonin Fever Qualifiers: Fever type: unspecified Qualified Code(s): R50.9 - Fever, unspecified Amyloidosis Qualifiers: Amyloidosis type: unspecified amyloidosis Qualified Code(s): E85.9 - Amyloidosis, unspecified Multiple myeloma Qualifiers: Multiple myeloma remission status: unspecified Qualified Code(s): C90.00 - Multiple myeloma not having achieved remission CHF (congestive heart failure) Qualifiers: Heart failure type: unspecified Heart failure chronicity: acute on chronic Qualified Code(s): I50.9 - Heart failure, unspecified Disposition: Xfer As Inpt ([facility]) Condition: Serious Referrals: Teodora Guadarrama MD [Primary Care Provider] -
[2018-06-06] MEDS ORDERED: CEFEPIME 1 GM VIAL IV ONE (09:47)
[2018-06-06] MEDS ORDERED: VANCOMYCIN PER PHARMACY IV ONE ×2 (09:47→13:02)
[2018-06-06] MEDS ORDERED: HYDROcodone/APAP 10/325MG TABLET PO ONE ×2 (09:55→10:07)
[2018-06-06] MEDS ORDERED: VANCOMYCIN 1,000 MG in 0.9 % SODIUM CHLORIDE 250 ML IV ONE (10:00)
[2018-06-06 10:09] LABS: Basophils # (Auto) 0 K/mcL (0.0-0.3); Basophils % (Auto) 0 % (0.0-2.0); Eosinophils # (Auto) 0.4 K/mcL (0.0-0.7); Eosinophils % (Auto) 3.9 % (0.0-7.0); Granulocytes % (Auto) 74.5 % (38.0-78.0); Lymphocytes # (Auto) 0.7 K/mcL (1.5-4.8); Lymphocytes % (Auto) 6.9 % (15.5-49.0); Mean Cell Volume 100.7 fL (80.0-100.0); Mean Corpuscular HGB Conc 33.7 g/dL (31.0-36.0); Mean Corpuscular Hemoglobin 33.9 pg (26.0-34.0); Monocytes # (Auto) 1.6 K/mcL (0.1-0.9); Monocytes % (Auto) 14.7 % (1.0-12.0); Platelet Count 403 K/mcL (140-440); RBC 2.72 M/mcL (4.50-5.90); Red Cell Distribution Width 18.9 % (11.5-14.5)
--- NOTE | 2018-06-06 10:09 | XRay Report ---
CLINICAL INFORMATION: Fever COMPARISON: 09/12/2017 and 03/16/2017 FINDINGS: Moderate cardiomegaly is unchanged. Mediastinum is unremarkable. The pulmonary vessels are moderately congested with mild bronchovascular edema. This is particularly noticeable when compared to 03/16/2017 baseline study. There is moderate patchy airspace disease in both mid lungs and infrahilar regions. This could represent atypical edema versus aspiration or infection. Small bilateral pleural effusions noted IMPRESSION: 1. Mild CHF or volume overload 2. Moderate patchy airspace disease in both mid lungs and medial bases. Atypical edema versus superimposed aspiration or infection. 3. Underlying chronic bronchitis Interpreted and Authenticated by: Jason Cruz 06/06/18
[2018-06-06] MEDS ORDERED: fentaNYL 75 MCG PATCH TOPICAL ONE (10:34)
[2018-06-06 11:07] LABS: ALT/SGPT 8 U/l (0-40); Albumin 3.3 gm/dL (3.2-5.2); Albumin/Globulin Ratio 1.4 (1.0-2.3); Alkaline Phosphatase 70 U/L (39-117); Blood Urea Nitrogen 27 mg/dl (6-20)
[2018-06-06 11:59] LABS: Appearance,Urine CLEAR; Bacteria,Urine 0 /hpf (0); Bilirubin,Urine NEG (NEG); Color,Urine STRAW; Glucose,Urine (UA) NEGATIVE (NEG); Leukocyte Esterase,Urine NEG /uL (NEG); Mucus,Urine FEW /hpf (0); Protein,Urine NEG (NEG); Specific Gravity,Urine 1.005 (1.000-1.035); Urine Blood 0.03 mg/dL (<0.03); Urine RBC 1 /hpf (0-1); Urine Squamous Epithelial Cell 0 /hpf (0-4); Urine WBC < 1 /hpf (0-4); Urobilinogen,Urine NEG (NEG)
[2018-06-06] MEDS ORDERED: PROCHLORPERAZINE MALEATE 10 MG TABLET PO PRN ×2 (13:07→14:37)
[2018-06-06] MEDS ORDERED: HYDROcodone/APAP 10/325MG TABLET PO PRN ×2 (13:07→14:37)
[2018-06-06] MEDS ORDERED: BISACODYL 10 MG SUPP.RECT PR PRN ×2 (13:07→14:37)
[2018-06-06] MEDS ORDERED: LUBIPROSTONE 24 MCG PO PRN (13:07)
[2018-06-06] MEDS ORDERED: CEFEPIME 1 GM VIAL IV SCH (13:15)
[2018-06-06 13:58] LABS: Anisocytosis 1+ (NONE SEEN); Band Neutrophils % 1 % (0-10); Basophils % (Manual) 1 % (0-2); Eosinophils % (Manual) 7 % (0-7); Lymphocytes % 4 % (15-49); Macrocytosis 1+ (NONE SEEN); Monocytes % (Manual) 17 % (1-12); Platelet Estimate NORMAL (NORMAL); RBC Morphology ABNORM (NORMAL); Segmented Neutrophils % 70 % (38-78); Target Cells 1+ (NONE SEEN)
--- NOTE | 2018-06-06 13:58 | History and Physical Report ---
DATE OF ADMISSION: 06/06/2018 PRIMARY CARE PROVIDER: Patient does not have a primary care provider. He follows with Dr. Guadarrama and Dr. Wills. CHIEF COMPLAINT: Shortness of breath, poor oral intake. HISTORY OF PRESENT ILLNESS: This is a 52-year-old male with end-stage renal disease, amyloidosis, and multiple myeloma who noted that while he was helping a family member bring in tools, he said he was short of breath. He just felt like he could not get a deep breath. He has a chronic cough but does not state that the cough was worse than usual. He says his girlfriend had a cold recently. Otherwise, no other sick contacts. He became increasingly weak, fatigued and then noticed on Tuesday that he had a fever, went in for dialysis Tuesday and had several liters off. He says he did not notice any significant improvement in shortness of breath. He was noted to have a fever of 100.8 in the ER. He was sent in by hand edger. In the ER, he had vital signs showing a temperature of 100.8, mildly tachycardic, tachypneic. He was put on oxygen to keep his sats mid-90s. I do not have any recorded low oxygen saturations. I am not sure what it was prior to putting on the oxygen. When he came in to the ER it was initially 94% on room air. He had a chest x-ray which showed some what was felt to be some patchy airspace disease related to either pulmonary edema or atypical infection. In the ER was also noted to have an elevated procalcitonin. He complains of headache. He has not had this type of scenario in the past where he has had this shortness of breath. He had no cough that is above baseline but just feels weak, fatigued and feverish and more short of breath. Given his SIRS criteria and source of infection, questionable pulmonary source resulting in sepsis and his immunosuppressed state and end-stage renal disease, the patient was thus admitted. REVIEW OF SYSTEMS: Positive for weakness, fatigue, shortness of breath, headache, constipation, chronic cough. Negative for nausea, vomiting. The remaining 10-point review of system is negative. PAST MEDICAL HISTORY: Includes end-stage renal disease followed by Dr. Guadarrama, anemia of chronic disease, amyloidosis, multiple myeloma with which he follows Dr. Wills and is on chronic dexamethasone, history of hypertension, depression, neuropathy, anxiety, chronic pain. PAST SURGICAL HISTORY: Recent fistula graft, appendectomy. FAMILY HISTORY: Mother had what sounds like oral cancer. Father had diabetes. SOCIAL HISTORY: The patient uses chewing tobacco. Does not use alcohol. Sometimes uses a cane/walker to ambulate, lives with his girlfriend. ALLERGIES: 1. IODINATED CONTRAST. 2. PENICILLINS, although he received cephalosporin down in the ER without incident. HOME MEDICATIONS: 1. Acyclovir. 2. Amlodipine. 3. Coreg. 4. Aspirin. 5. Decadron. 6. Fentanyl patch. 7. Gabapentin. 8. Hydrocodone. 9. Zoloft. 10. Torsemide. PHYSICAL EXAMINATION: VITAL SIGNS: Temperature 100.8, pulse 99 to 108, blood pressure 132/94, oxygen is 98% now on 2 liters, respiratory rate 14 to 24. GENERAL: The patient is alert and awake, appears to be in no acute distress at this time. HEENT: Normocephalic, atraumatic. Extraocular muscles are intact. Pupils equal and reactive to light. HEART: Regular rate and rhythm, 2/6 systolic ejection murmur noted. LUNGS: Mild bibasilar rales, no wheezing appreciated. ABDOMEN: Soft, nontender, positive bowel sounds. EXTREMITIES: No clubbing, cyanosis or edema. Peripheral pulse present. NEUROLOGIC: Cranial nerves II-XII grossly intact. No focal deficits. Sensation and strength intact upper and lower. SKIN: Warm and dry. LABORATORY DATA: WBC is 10, hemoglobin 9.2. Sodium 131, BUN 27, creatinine of 3.3. Lactate within normal limits. Procalcitonin 1.56. Chest x-ray with some pulmonary edema, patchy airspace infiltrate, question interstitial edema versus atypical pneumonia and some chronic bronchitis changes noted by the radiologist. EKG unremarkable. IMPRESSION: 1. Sepsis with suspected source concerning for pulmonary source. Also of note, he did have a fistula accessed recently. That is always a possibility of source, although overlying site does not appear warm or red. Given his shortness of breath, chest x-ray findings, and procalcitonin suspect more of a pulmonary source. 2. End-stage renal disease, follows Dr. Guadarrama. 3. Immunosuppressed on dexamethasone. 4. History of amyloidosis and multiple myeloma on chronic immunosuppression, follows Dr. Wills. 5. Neuropathy. 6. Depression and anxiety. 7. Chronic pain. PLAN: The patient will be monitored in telemetry. Broad spectrum IV antibiotics, cefepime and vancomycin per pharmacy to dose. I will try to obtain a sputum culture if able. Pending a blood culture as well. Followup chest x-ray imaging in the morning. Further recommendation pending clinical course. Followup blood cultures and imaging. Continue home blood pressure medications and pain medications. Dr. Guadarrama will be following along as well. The patient will be receiving dialysis inpatient while here. Followup procalcitonin as well. DVT prophylaxis heparin. JOSÉ MIGUEL:abbie Job ID: [id number] Doc ID: [id number] Raheem Carpio DO
[2018-06-06] MEDS ORDERED: 0.9 % SODIUM CHLORIDE 10 ML SYRINGE IV SCH (14:00)
[2018-06-06] MEDS ORDERED: VANCOMYCIN PER PHARMACY IV SCH (14:37)
[2018-06-06] MEDS ORDERED: Lubiprostone [Amitiza] 24 mcg Cap PO PRN (14:37)
[2018-06-06] MEDS ORDERED: IPRATROPIUM/ALBUTEROL 3 ML AMPUL.NEB NEB PRN (14:37)
--- NOTE | 2018-06-06 16:41 | Nephrology Consult Note ---
History of Present Illness - Reason for Consult Patient information: Note initiated : 06/06/18 at 4:37 pm Service Date, if different from initiated Date: [] Patient: Jamal Blanc 52 y/o M admitted on 06/06/18 for Fever, SOB, N/V/D. Chief Complaint: [] Consult date: 06/06/18 end stage renal disease Requesting physician: Jake Roche - Chief Complaint SOB - History of Present Illness Patient is a 52 y/o pleasant white male with PMH of ESRD from Multiple myeloma, amyloidosis and other medical issues who was seen this am on dialysis and later in ICU He reported to have SOB, cough, fever with chills, weakness for the last 3-4 days his symptoms have been getting worse he missed his dialysis on tuesday for this as well but did not go to ER he has chronic nausea, vomiting and even these symptoms were worse he was noted be tachycardic with fever of 102.5 and tachypneic with some hypoxia in dialysis unit and hence was sent to ER he was found to have some air space disease, elevated pro calcitonin with clinic signs of sepsis and also mild CHF and hence is hospitalised for further treatment when seen later his SOB was a little better on 2L oxygen and he did have any other complaints' Review of Systems All systems PM: reviewed and no additional remarkable complaints except as stated (as in HPI) Past History Past medical history: esrd on HD multiple myeloma/amyloidosis anemia of CKD secondary hyperparathyroidism chronic pain Hypertension gout Past surgical history: AVF H/O Colonoscopy Past family history: mother had oral cancer and she is Past social history: chews tobacco drinks occ former substance user lives with his girlfriend Medications and Allergies Home Medications Medication Instructions Recorded Confirmed Type Aspirin [Aspirin EC] 325 mg PO DAILY 03/15/17 06/06/18 History acyclovir 400 mg tablet 400 mg PO BID tab 11/02/17 06/06/18 History carvedilol 25 mg tablet 25 mg PO BID #60 tab 11/15/17 06/06/18 Rx amlodipine 10 mg tablet 10 mg PO QDAY #30 tab 11/21/17 06/06/18 Rx Dexamethasone [Decadron] 40 mg PO SA 11/25/17 06/06/18 History Prochlorperazine Maleate 1 tab PO Q6HP PRN 11/25/17 06/06/18 History [Compazine] hydrocodone 10 mg-acetaminophen 1 tab PO Q8H PRN tab 12/15/17 06/06/18 History 325 mg tablet pomalidomide 3 mg capsule 3 mg PO QDAY 12/15/17 06/06/18 History sevelamer carbonate 800 mg tablet 800 mg PO TIDCC #150 tab 01/03/18 06/06/18 Rx torsemide 20 mg tablet 20 mg PO BID #60 tab 01/13/18 06/06/18 Rx gabapentin 100 mg capsule 100 mg PO BID #60 cap 03/30/18 06/06/18 Rx Lubiprostone [Amitiza] 24 mcg PO PRN PRN 06/06/18 06/06/18 History Sertraline [Zoloft] 100 mg PO DAILY 06/06/18 06/06/18 History fentaNYL [Fentanyl] 75 mcg TD Q72 06/06/18 06/06/18 History traZODone HCL [Trazodone HCl] 50 mg PO DAILY 06/06/18 06/06/18 History Allergies Allergy/AdvReac Type Severity Reaction Status Date / Time Iodinated Contrast- Oral and Allergy Intermediate Unknown Verified 11/02/17 08: 43 IV Dye [Iodinated Contrast Media - IV Dye] iodine Allergy Intermediate Unknown Verified 11/02/17 08:43 Penicillins Allergy Intermediate Other Verified 11/02/17 08:43 Exam - Vital Signs Vital signs: Temp Pulse Resp BP Pulse Ox 98.3 F 95 H 18 143/63 100 06/06/18 16:03 06/06/18 14:25 06/06/18 16:03 06/06/18 16:03 06/06/18 16:03 - General Appearance General appearance: appears started age, frail EENT: mucous membranes moist Neck: no JVD Respiratory: rales Cardiology: no rub, no edema, regular rate, regular rhythm Gastrointestinal: no tenderness Integumentary: warm and dry Neurologic: alert and oriented x3 Musculoskeletal: no erythema, no cyanosis Psychiatric: mood/affect appropriate Results - Lab Results 06/06/18 09:35 06/06/18 09:35 Most recent lab results Calcium 8.0 mg/dl (8.6-10.4) L 06/06/18 09:35 Assessment and Plan (1) ESRD (end stage renal disease) on dialysis HD done today CXR with concern of air space disease and mild CHF, with patient having fever, tachycardia this am so will hold on PUF treatment, he did have 2.5L UF removed on HD this am will plan for HD and PUF treatment tomorrow anemia: Hb is slowly improving, had dropped to 7.0, will ct with out pt angela PNA: received cefepime and vanc Will follow along Appreciate hospitalist's help in managing this patient Status: Chronic Priority: Medium (2) Fluid overload Status: Acute (3) Pneumonia Status: Acute Comment: on [place]- completed the course
[2018-06-06] MEDS: CARVEDILOL 12.5 MG TABLET PO SCH (17:26)
[2018-06-06] MEDS: SEVELAMER 800 MG TABLET PO SCH (17:26)
[2018-06-06] MEDS ORDERED: CARVEDILOL 12.5 MG TABLET PO SCH (17:30)
[2018-06-06] MEDS ORDERED: SEVELAMER 800 MG TABLET PO SCH (17:30)
[2018-06-06] MEDS: DOCUSATE SODIUM 100 MG CAPSULE PO SCH ×2 (17:33→20:13)
[2018-06-06] MEDS: HEPARIN 5,000 UNIT/ML VIAL SQ SCH (20:13)
[2018-06-06] MEDS: TORSEMIDE 10 MG TABLET PO SCH (20:14)
[2018-06-06] MEDS: GABAPENTIN 100 MG CAPSULE PO SCH (20:14)
[2018-06-06] MEDS: ACYCLOVIR 400 MG TABLET PO SCH (20:14)
[2018-06-06] MEDS: 0.9 % SODIUM CHLORIDE 10 ML SYRINGE IV SCH (20:15)
[2018-06-06] MEDS ORDERED: traZODone HCL 50 MG TABLET PO PRN (20:18)
[2018-06-06] MEDS ORDERED: ACYCLOVIR 400 MG TABLET PO SCH (21:00)
[2018-06-06] MEDS ORDERED: DOCUSATE SODIUM 100 MG CAPSULE PO SCH (21:00)
[2018-06-06] MEDS ORDERED: GABAPENTIN 100 MG CAPSULE PO SCH (21:00)
[2018-06-06] MEDS ORDERED: TORSEMIDE 10 MG TABLET PO SCH (21:00)
[2018-06-06] MEDS: HYDROcodone/APAP 10/325MG TABLET PO PRN (23:01)
[2018-06-07] MEDS: 0.9 % SODIUM CHLORIDE 10 ML SYRINGE IV SCH ×6 (05:54→22:10)
[2018-06-07 06:08] LABS: ALT/SGPT 5 U/l (0-40); Albumin 2.7 gm/dL (3.2-5.2); Albumin/Globulin Ratio 1.3 (1.0-2.3); Alkaline Phosphatase 51 U/L (39-117); Bilirubin,Direct < 0.2 mg/dL (0.0-0.3); Blood Urea Nitrogen 41 mg/dl (6-20); Gamma Glutamyl Transpeptidase 4 U/L (8-61); Mean Cell Volume 100.7 fL (80.0-100.0); Mean Corpuscular HGB Conc 33.6 g/dL (31.0-36.0); Mean Corpuscular Hemoglobin 33.9 pg (26.0-34.0); Platelet Count 314 K/mcL (140-440); RBC 2.16 M/mcL (4.50-5.90); Red Cell Distribution Width 18.7 % (11.5-14.5); Uric Acid 3.9 mg/dL (2.5-8.0)
[2018-06-07 06:30] LABS: Anisocytosis 1+ (NONE SEEN); Basophils % (Manual) 6 % (0-2); Eosinophils % (Manual) 11 % (0-7); Lymphocytes % 15 % (15-49); Macrocytosis 1+ (NONE SEEN); Monocytes % (Manual) 17 % (1-12); Platelet Estimate NORMAL (NORMAL); RBC Morphology ABNORM (NORMAL); Segmented Neutrophils % 51 % (38-78); Toxic Granulation OCC (NONE SEEN)
[2018-06-07] MEDS: HYDROcodone/APAP 10/325MG TABLET PO PRN ×5 (07:32→20:36)
[2018-06-07] MEDS: GABAPENTIN 100 MG CAPSULE PO SCH ×2 (07:32→20:38)
--- NOTE | 2018-06-07 08:01 | Internal Med Progress Note ---
Medical - PN: Subj Patient information: Note initiated : 06/07/18 at 7:49 am Service Date, if different from initiated Date: [] Patient: Jamal Blanc 52 y/o M admitted on 06/06/18 for Fever, SOB, N/V/D. Chief Complaint: [] Interval history: feeling better, breathing better, minimal dyspnea. no fevers. Review of Systems: denies headache/fever/chills/nausea/vomiting/chest or abdominal pain/diarrhea. Otherwise see above. - Constitutional Vitals: Vital Signs Temp Pulse Resp BP Pulse Ox 98.4 F 61 16 123/71 96 06/07/18 03:53 06/07/18 04:00 06/07/18 03:53 06/07/18 03:53 06/07/18 04:00 Period Temp Pulse Resp BP Sys/Rossi Pulse Ox Last 24 Hr 98.1 F-100.8 F 61-111 14-30 123-166/63-119 80-100 Intake and Output 06/06/18 06/07/18 06/07/18 21:59 05:59 13:59 Intake Total 470 / 470 800 / 800 Balance 470 / 470 800 / 800 Weight 166 lb 14.4 oz Intake & Output: Intake & Output 06/06/18 06/07/18 06/07/18 21:59 05:59 13:59 Intake Total 470 / 470 800 / 800 Balance 470 / 470 800 / 800 Weight 166 lb 14.4 oz Intake: Oral 470 / 470 800 / 800 Other: Meal Dinner Percent of Meal Consumed 75% Feeding Ability Independent Stool Size Moderate Stool Color Brown Stool Consistency Formed # Bowel Movements 1 # of times incontinent of 0 Bowels Exam: General: Alert, Awake, No acute Distress HEENT: EOMI, CV: RRR, 2/6 SM Pulm: Clear b/l, no wheezing/rhonchi/rales Abd: soft, nontender, +BS x4 Ext: no clubbing/cyanosis/edema Neuro: Alert, no focal deficits, moves all extremities Skin: warm/dry Medical - PN: Obj Da - Labs CBC & Chem 7: 06/07/18 03:50 06/07/18 03:50 Labs: Abnormal Lab Results 06/07/18 06/07/18 06/06/18 03:50 03:50 11:22 RBC 2.16 L Hgb 7.3 L Hct 21.7 L MCV 100.7 H RDW 18.7 H Lymph % (Auto) [place] % (Auto) Lymph # (Auto) [place] # (Auto) Lymphocytes % Monocytes % (Manual) 17 H Eosinophils % (Manual) 11 H Basophils % (Manual) 6 H Vacuolated Neuts Occ A Vacuolated Monocytes 1+ A Toxic Granulation Occ A RBC Morphology Abnorm A Polychromasia 1+ A Anisocytosis 1+ A Microcytosis Macrocytosis 1+ A Target Cells RBC Fragments Occ A Sodium 129 L Chloride 94 L BUN 41 H Creatinine 4.8 H Calcium 7.4 L GGT 4 L Troponin T Total Protein 4.8 L Albumin 2.7 L Globulin 2.1 L Urine Occult Blood 0.03 A 06/06/18 06/06/18 06/06/18 09:35 09:35 09:13 RBC 2.72 L Hgb 9.2 L Hct 27.4 L MCV 100.7 H RDW 18.9 H Lymph % (Auto) 6.9 L [place] % (Auto) 14.7 H Lymph # (Auto) 0.7 L [place] # (Auto) 1.6 H Lymphocytes % 4 L Monocytes % (Manual) 17 H Eosinophils % (Manual) Basophils % (Manual) Vacuolated Neuts Vacuolated Monocytes Toxic Granulation RBC Morphology Abnorm A Polychromasia 1+ A Anisocytosis 1+ A Microcytosis 1+ A Macrocytosis 1+ A Target Cells 1+ A RBC Fragments Sodium 131 L Chloride 94 L BUN 27 H Creatinine 3.3 H Calcium 8.0 L GGT Troponin T Total Protein 5.7 L Albumin Globulin Urine Occult Blood 06/06/18 09:13 RBC Hgb Hct MCV RDW Lymph % (Auto) [place] % (Auto) Lymph # (Auto) [place] # (Auto) Lymphocytes % Monocytes % (Manual) Eosinophils % (Manual) Basophils % (Manual) Vacuolated Neuts Vacuolated Monocytes Toxic Granulation RBC Morphology Polychromasia Anisocytosis Microcytosis Macrocytosis Target Cells RBC Fragments Sodium Chloride BUN Creatinine Calcium GGT Troponin T 0.12 H* Total Protein Albumin Globulin Urine Occult Blood Meds: Medications Hydrocodone Bitart/Acetaminophen ([place] 10/325mg) 1 tab PO Q6HP PRN PRN Reason: PAIN LEVEL 3-6 Last Admin: 06/07/18 07:32 Dose: 1 tab Acyclovir (Zovirax) 400 mg PO BID [facility] Last Admin: 06/06/18 20:14 Dose: 400 mg Albuterol/Ipratropium (Duoneb) 3 ml NEB Q6HP PRN PRN Reason: Shortness Of Breath Amlodipine Besylate (Norvasc) 10 mg PO QDAY [facility] Aspirin (Ecotrin) 325 mg PO DAILY [facility] Bisacodyl (Dulcolax) 10 mg OR Q2-3DAYS PRN PRN Reason: Constipation Carvedilol (Coreg) 25 mg PO BIDCC [facility] Last Admin: 06/06/18 17:26 Dose: 25 mg Cefepime HCl (Maxipime) 0.5 gm IV Q24H [facility] Dexamethasone (Decadron) 40 mg PO Sa@0800 [facility] Docusate Sodium (Colace) 100 mg PO BID [facility] Last Admin: 06/06/18 20:13 Dose: Not Given Fentanyl (Duragesic) 75 mcg TD Q72 [facility] Gabapentin (Neurontin) 100 mg PO BID [facility] Last Admin: 06/07/18 07:32 Dose: 100 mg Heparin Sodium (Porcine) (Heparin) 5,000 unit SQ Q12 [facility] Last Admin: 06/06/18 20:13 Dose: 5,000 unit Lubiprostone [ (Amitiza] 24 Mcg Cap) 1 dose PO DAILYP PRN PRN Reason: Constipation Prochlorperazine Maleate (Compazine) 10 mg PO Q6HP PRN PRN Reason: Nausea Sertraline HCl (Zoloft) 100 mg PO DAILY [facility] Sevelamer Carbonate (Renvela) 800 mg PO TIDCC [facility] Last Admin: 06/06/18 17:26 Dose: 800 mg Sodium Chloride (Saline Flush) 10 ml IV Q8 [facility] Last Admin: 06/07/18 05:54 Dose: 10 ml Torsemide (Demadex) 20 mg PO BID [facility] Last Admin: 06/06/18 20:14 Dose: 20 mg Trazodone HCl (Desyrel) 50 mg PO HSP PRN PRN Reason: Insomnia Last Admin: 06/06/18 21:40 Dose: 50 mg Vancomycin HCl (Vancomycin Per Pharmacy) 1 order IV UD [facility] Medical - PN: A/P - Time Spent With Patient Total time spent is greater than 50% in coordination of care (as documented) at patient's floor/unit and/or counseling patient: - Narrative A/P Narrative: A: * Sepsis with suspected source concerning for pulmonary source. Also of note, he did have a fistula accessed recently. Given his shortness of breath, chest x- ray findings, and procalcitonin suspect more of a pulmonary source. -no bandemia, now afebrile -elevated PCT -CXR clearing -BC neg * End-stage renal disease with mild CHF, follows Dr. Guadarrama. * Volume overload with pulm edema: cxr improved * Immunosuppressed on dexamethasone. * History of amyloidosis and multiple myeloma on chronic immunosuppression, follows Dr. Wills. * Anemia, chronic: -dropped today, * Neuropathy. * Depression and anxiety. * Chronic pain PLAN: - Broad spectrum IV antibiotics cefepime and vancomycin -Pending final blood culture; -obtain a sputum culture if able. -?PRBC with HD -Continue home blood pressure medications and pain medications, home dexa -Dr. Guadarrama following. HD. -trend procalcitonin -ppx:heparin. Medical - PN: Qual - Stroke Symptom Onset Unknown: No
[2018-06-07] MEDS: DOCUSATE SODIUM 100 MG CAPSULE PO SCH ×2 (08:22→20:38)
[2018-06-07] MEDS: TORSEMIDE 10 MG TABLET PO SCH ×2 (08:22→20:35)
[2018-06-07] MEDS: SEVELAMER 800 MG TABLET PO SCH ×3 (08:22→19:23)
[2018-06-07] MEDS: ASPIRIN 325 MG ENTERIC COATED TABLET PO SCH (08:23)
[2018-06-07] MEDS: HEPARIN 5,000 UNIT/ML VIAL SQ SCH ×2 (08:23→20:38)
[2018-06-07] MEDS: CARVEDILOL 12.5 MG TABLET PO SCH ×2 (08:23→17:53)
[2018-06-07] MEDS: amLODIPine 10 MG TABLET PO SCH ×3 (08:23→14:09)
[2018-06-07] MEDS: SERTRALINE 100 MG TABLET PO SCH (08:23)
[2018-06-07] MEDS ORDERED: ASPIRIN 325 MG ENTERIC COATED TABLET PO SCH (09:00)
[2018-06-07] MEDS ORDERED: amLODIPine 10 MG TABLET PO SCH (09:00)
[2018-06-07] MEDS ORDERED: SERTRALINE 100 MG TABLET PO SCH (09:00)
[2018-06-07] MEDS ORDERED: traZODone HCL 50 MG TABLET PO SCH ×2 (09:00)
[2018-06-07] MEDS: CEFEPIME 1 GM VIAL IV SCH (09:33)
[2018-06-07] MEDS ORDERED: fentaNYL 25 MCG PATCH TD SCH ×2 (10:00)
--- NOTE | 2018-06-07 10:28 | XRay Report ---
CLINICAL INFORMATION: Infiltrate COMPARISON: 06/06/2018 FINDINGS: Moderate cardiomegaly is unchanged. Mediastinum is unremarkable. Pulmonary vessels have returned to normal in caliber and interstitial edema has resolved. Patchy airspace disease in the mid and lower lung pizano is also almost totally resolved. Mild subglottic narrowing noted. No effusions. IMPRESSION: Interval resolution in acute CHF. Vague airspace disease in the mid and lower lungs is also merely resolved and likely represented atypical edema versus superimposed aspiration Mild subglottic narrowing - presumably inflammatory Interpreted and Authenticated by: Jason Cruz 06/07/18
[2018-06-07] MEDS ORDERED: 0.9 % SODIUM CHLORIDE 250 ML IV SCH ×2 (11:45→12:30)
[2018-06-07] MEDS: ACYCLOVIR 400 MG TABLET PO SCH ×2 (14:09→20:38)
[2018-06-07 15:10] LABS: Basophils # (Auto) 0 K/mcL (0.0-0.3); Basophils % (Auto) 0.7 % (0.0-2.0); Eosinophils # (Auto) 0.4 K/mcL (0.0-0.7); Eosinophils % (Auto) 9.8 % (0.0-7.0); Granulocytes % (Auto) 56.8 % (38.0-78.0); Lymphocytes # (Auto) 0.9 K/mcL (1.5-4.8); Lymphocytes % (Auto) 19.5 % (15.5-49.0); Mean Cell Volume 100.4 fL (80.0-100.0); Mean Corpuscular HGB Conc 33.2 g/dL (31.0-36.0); Mean Corpuscular Hemoglobin 33.3 pg (26.0-34.0); Monocytes # (Auto) 0.6 K/mcL (0.1-0.9); Monocytes % (Auto) 13.2 % (1.0-12.0); Platelet Count 384 K/mcL (140-440); RBC 2.75 M/mcL (4.50-5.90); Red Cell Distribution Width 18.5 % (11.5-14.5)
[2018-06-07 15:24] LABS: Vancomycin,Random 8.3 ug/mL
[2018-06-07] MEDS ORDERED: VANCOMYCIN 1,000 MG in 0.9 % SODIUM CHLORIDE 250 ML IV ONE ×2 (16:00→20:00)
--- NOTE | 2018-06-07 17:11 | Nephrology Progress Note ---
Subjective Patient information: Note initiated : 06/07/18 at 5:09 pm Service Date, if different from initiated Date: [] Patient: Jamal Blanc 52 y/o M admitted on 06/06/18 for Fever, SOB, N/V/D / Sepsis. Chief Complaint: [] Principal diagnosis: fever Interval history: Patient seen this am he is feeling better SOB is better no edema no fever overnight blood culture negative Hb at 7.3 this am, received 2 units of prbc transfusion, though repeat lab suggested Hb at 9.1 Pertinent ROS: as above Objective - Vital Signs Vital signs: Vital Signs Temp Pulse Pulse Resp BP BP Pulse Ox 06/07/18 13:56 98.6 F 73 150/66 06/07/18 13:30 74 169/69 06/07/18 13:06 71 149/71 06/07/18 12:33 72 155/66 06/07/18 12:02 70 172/76 06/07/18 12:00 98.5 F 20 175/72 94 06/07/18 11:55 98.5 F 20 175/72 94 06/07/18 11:29 70 175/72 06/07/18 11:03 71 167/66 06/07/18 10:30 98.3 F 67 180/85 06/07/18 07:15 97 06/07/18 04:00 61 96 06/07/18 03:59 62 96 06/07/18 03:53 98.4 F 62 16 123/71 90 06/07/18 00:48 71 98 06/07/18 00:11 88 L 06/07/18 00:03 91 06/07/18 00:00 89 L 06/06/18 23:58 90 06/06/18 23:47 98 06/06/18 23:21 97 06/06/18 23:06 98.1 F 77 16 146/77 90 06/06/18 20:06 98.5 F 80 16 140/73 99 06/06/18 18:52 89 L 06/06/18 17:50 98 H 98 Intake and Output 06/07/18 06/07/18 06/07/18 05:59 13:59 21:59 Intake Total 800 / 800 420 / 420 720 / 720 Output Total 3000 / 3000 Balance 800 / 800 -2580 / -2580 720 / 720 Intake: Oral 800 / 800 420 / 420 720 / 720 Output: Hemodialysis UF 3000 / 3000 Other: Meal Breakfast Lunch Percent of Meal Consumed 75% 100% Feeding Ability Independent Independent Weight 166 lb 14.4 oz Patient Weight 06/08/18 05:59 Weight 166 lb 14.4 oz Intake & Output: Intake & Output 06/07/18 06/07/18 06/07/18 05:59 13:59 21:59 Intake Total 800 / 800 420 / 420 720 / 720 Output Total 3000 / 3000 Balance 800 / 800 -2580 / -2580 720 / 720 Weight 166 lb 14.4 oz Intake: Oral 800 / 800 420 / 420 720 / 720 Output: Hemodialysis UF 3000 / 3000 Other: Meal Breakfast Lunch Percent of Meal Consumed 75% 100% Feeding Ability Independent Independent - General Appearance General appearance: appears started age, chronically ill, frail EENT: mucous membranes moist Neck: no JVD Respiratory: clear Cardiology: no rub, regular rate, regular rhythm Gastrointestinal: no tenderness, no guarding Integumentary: warm and dry Neurologic: alert and oriented x3 Musculoskeletal: no erythema Psychiatric: mood/affect appropriate - Lab 06/07/18 14:30 06/07/18 03:50 Most recent lab results Calcium 7.4 mg/dl (8.6-10.4) L 06/07/18 03:50 Phosphorus 2.9 mg/dL (2.7-4.5) 06/07/18 03:50 Magnesium 1.8 mg/dL (1.6-2.5) 06/07/18 03:50 Assessment and Plan (1) ESRD (end stage renal disease) on dialysis ESRD with concern of fluid overload HD done today with revaclear dialyser, 3K/2.5 ca dialysate, UF goal fo 2-3L as tolerated anemia: etiology multifactorial Hb was 7.3 this am so we gave hime 2 units of prbc transfusion however his Hb on repeat was 9.3 so will hold off on aranesp for now fever: ? source, blood culture negative, ? pul improved symptoms likely discharge home tomorrow dialysis as outpt tomorrow Will follow along Appreciate hospitalist help in managing this patient Status: Chronic Priority: Medium (2) Fluid overload Status: Acute (3) Pneumonia Status: Acute Comment: on Levaquin- completed the course
[2018-06-07] MEDS: LACTOBACILLUS 1 CAPSULE PO SCH (20:38)
[2018-06-08] MEDS: 0.9 % SODIUM CHLORIDE 10 ML SYRINGE IV SCH ×2 (05:15→09:02)
[2018-06-08 06:04] LABS: Blood Urea Nitrogen 17 mg/dl (6-20)
[2018-06-08 06:06] LABS: Basophils # (Auto) 0 K/mcL (0.0-0.3); Basophils % (Auto) 0.9 % (0.0-2.0); Eosinophils # (Auto) 0.4 K/mcL (0.0-0.7); Eosinophils % (Auto) 9.2 % (0.0-7.0); Granulocytes % (Auto) 55.2 % (38.0-78.0); Lymphocytes # (Auto) 0.8 K/mcL (1.5-4.8); Lymphocytes % (Auto) 15.4 % (15.5-49.0); Mean Cell Volume 98.2 fL (80.0-100.0); Mean Corpuscular HGB Conc 33.1 g/dL (31.0-36.0); Mean Corpuscular Hemoglobin 32.5 pg (26.0-34.0); Monocytes # (Auto) 0.9 K/mcL (0.1-0.9); Monocytes % (Auto) 19.3 % (1.0-12.0); Platelet Count 321 K/mcL (140-440); RBC 2.87 M/mcL (4.50-5.90); Red Cell Distribution Width 19.9 % (11.5-14.5)
--- NOTE | 2018-06-08 07:47 | Internal Med Progress Note ---
Medical - PN: Subj Patient information: Note initiated : 06/08/18 at 7:47 am Service Date, if different from initiated Date: [] Patient: Jamal Blanc 52 y/o M admitted on 06/06/18 for Fever, SOB, N/V/D / Sepsis. Chief Complaint: [] Interval history: feeling better, breathing better, minimal dyspnea. no fevers. 06/08 - Constitutional Vitals: Vital Signs Temp Pulse Resp BP Pulse Ox 98.8 F 80 18 156/71 92 06/08/18 03:52 06/07/18 20:00 06/08/18 03:52 06/08/18 03:52 06/08/18 03:52 Period Temp Pulse Resp BP Sys/Rossi Pulse Ox Last 24 Hr 98.3 F-100.7 F 67-86 16-20 137-180/55-92 90-96 Intake and Output 06/07/18 06/08/18 06/08/18 21:59 05:59 13:59 Intake Total 2070 / 2070 360 / 360 Output Total 450 / 450 Balance 1620 / 1620 360 / 360 Weight 161 lb 12.8 oz Intake & Output: Intake & Output 06/07/18 06/08/18 06/08/18 21:59 05:59 13:59 Intake Total 2070 / 2070 360 / 360 Output Total 450 / 450 Balance 1620 / 1620 360 / 360 Weight 161 lb 12.8 oz Intake: IV 330 / 330 Vancomycin 1,000 mg In Sodium 250 / 250 Chloride 0.9% 250 ml @ 250 mls/ hr IV ONCE ONE Rx#:[id number] Oral 1080 / 1080 360 / 360 Blood Product 660 / 660 Output: Void Amount 450 / 450 Other: Meal Dinner Percent of Meal Consumed 75% Feeding Ability Independent # Voids 1 Medical - PN: Obj Da - Labs CBC & Chem 7: 06/08/18 03:45 06/08/18 03:45 Labs: Abnormal Lab Results 06/08/18 06/08/18 06/07/18 03:45 03:45 14:30 WBC 4.4 L RBC 2.87 L 2.75 L Hgb 9.3 L 9.1 L Hct 28.2 L 27.6 L MCV 100.4 H RDW 19.9 H 18.5 H Lymph % (Auto) 15.4 L [place] % (Auto) 19.3 H 13.2 H Eos % (Auto) 9.2 H 9.8 H Lymph # (Auto) 0.8 L 0.9 L [place] # (Auto) Lymphocytes % Monocytes % (Manual) Eosinophils % (Manual) Basophils % (Manual) Vacuolated Neuts Vacuolated Monocytes Toxic Granulation RBC Morphology Polychromasia Anisocytosis Microcytosis Macrocytosis Target Cells RBC Fragments Sodium 132 L Chloride 94 L BUN Creatinine 3.1 H Calcium 7.7 L GGT Troponin T Total Protein Albumin Globulin Urine Occult Blood 06/07/18 06/07/18 06/06/18 03:50 03:50 11:22 WBC RBC 2.16 L Hgb 7.3 L Hct 21.7 L MCV 100.7 H RDW 18.7 H Lymph % (Auto) [place] % (Auto) Eos % (Auto) Lymph # (Auto) [place] # (Auto) Lymphocytes % Monocytes % (Manual) 17 H Eosinophils % (Manual) 11 H Basophils % (Manual) 6 H Vacuolated Neuts Occ A Vacuolated Monocytes 1+ A Toxic Granulation Occ A RBC Morphology Abnorm A Polychromasia 1+ A Anisocytosis 1+ A Microcytosis Macrocytosis 1+ A Target Cells RBC Fragments Occ A Sodium 129 L Chloride 94 L BUN 41 H Creatinine 4.8 H Calcium 7.4 L GGT 4 L Troponin T Total Protein 4.8 L Albumin 2.7 L Globulin 2.1 L Urine Occult Blood 0.03 A 06/06/18 06/06/18 06/06/18 09:35 09:35 09:13 WBC RBC 2.72 L Hgb 9.2 L Hct 27.4 L MCV 100.7 H RDW 18.9 H Lymph % (Auto) 6.9 L [place] % (Auto) 14.7 H Eos % (Auto) Lymph # (Auto) 0.7 L [place] # (Auto) 1.6 H Lymphocytes % 4 L Monocytes % (Manual) 17 H Eosinophils % (Manual) Basophils % (Manual) Vacuolated Neuts Vacuolated Monocytes Toxic Granulation RBC Morphology Abnorm A Polychromasia 1+ A Anisocytosis 1+ A Microcytosis 1+ A Macrocytosis 1+ A Target Cells 1+ A RBC Fragments Sodium 131 L Chloride 94 L BUN 27 H Creatinine 3.3 H Calcium 8.0 L GGT Troponin T Total Protein 5.7 L Albumin Globulin Urine Occult Blood 06/06/18 09:13 WBC RBC Hgb Hct MCV RDW Lymph % (Auto) [place] % (Auto) Eos % (Auto) Lymph # (Auto) [place] # (Auto) Lymphocytes % Monocytes % (Manual) Eosinophils % (Manual) Basophils % (Manual) Vacuolated Neuts Vacuolated Monocytes Toxic Granulation RBC Morphology Polychromasia Anisocytosis Microcytosis Macrocytosis Target Cells RBC Fragments Sodium Chloride BUN Creatinine Calcium GGT Troponin T 0.12 H* Total Protein Albumin Globulin Urine Occult Blood Meds: Medications Hydrocodone Bitart/Acetaminophen (Chetek 10/325mg) 1 - 2 tab PO Q6HP PRN PRN Reason: PAIN LEVEL 3-6 Last Admin: 06/07/18 20:36 Dose: 2 tab Acyclovir (Zovirax) 400 mg PO BID [facility] Last Admin: 06/07/18 20:38 Dose: 400 mg Albuterol/Ipratropium (Duoneb) 3 ml NEB Q6HP PRN PRN Reason: Shortness Of Breath Amlodipine Besylate (Norvasc) 10 mg PO QDAY [facility] Last Admin: 06/07/18 14:09 Dose: 10 mg Aspirin (Ecotrin) 325 mg PO DAILY [facility] Last Admin: 06/07/18 08:23 Dose: 325 mg Bisacodyl (Dulcolax) 10 mg CO Q2-3DAYS PRN PRN Reason: Constipation [facility] Last Admin: 06/07/18 17:53 Dose: 25 mg Cefepime HCl (Maxipime) 0.5 gm IV Q24H [facility] Last Admin: 06/07/18 09:33 Dose: 0.5 gm Dexamethasone (Decadron) 40 mg PO Sa@0800 [facility] Docusate Sodium (Colace) 100 mg PO BID [facility] Last Admin: 06/07/18 20:38 Dose: 100 mg Fentanyl (Duragesic) 75 mcg TOPICAL Q72H [facility] Gabapentin (Neurontin) 100 mg PO BID [facility] Last Admin: 06/07/18 20:38 Dose: 100 mg Heparin Sodium (Porcine) (Heparin) 5,000 unit SQ Q12 [facility] Last Admin: 06/07/18 20:38 Dose: 5,000 unit Lactobacillus Rhamnosus (Culturelle) 1 cap PO BID [facility] Last Admin: 06/07/18 20:38 Dose: 1 cap Lubiprostone [ (Amitiza] 24 Mcg Cap) 1 dose PO DAILYP PRN PRN Reason: Constipation Prochlorperazine Maleate (Compazine) 10 mg PO Q6HP PRN PRN Reason: Nausea Sertraline HCl (Zoloft) 100 mg PO DAILY [facility] Last Admin: 06/07/18 08:23 Dose: 100 mg Sevelamer Carbonate (Renvela) 800 mg PO TIDCC [facility] Last Admin: 06/07/18 19:23 Dose: 800 mg Sodium Chloride (Saline Flush) 10 ml IV Q8 [facility] Last Admin: 06/08/18 05:15 Dose: 10 ml Torsemide (Demadex) 20 mg PO BID [facility] Last Admin: 06/07/18 20:35 Dose: 20 mg Trazodone HCl (Desyrel) 50 mg PO HSP PRN PRN Reason: Insomnia Last Admin: 06/06/18 21:40 Dose: 50 mg Vancomycin HCl (Vancomycin Per Pharmacy) 1 order IV UD [facility] Medical - PN: A/P - Time Spent With Patient Total time spent is greater than 50% in coordination of care (as documented) at patient's floor/unit and/or counseling patient: Medical - PN: Qual - Stroke Symptom Onset Unknown: No
[2018-06-08] MEDS: LACTOBACILLUS 1 CAPSULE PO SCH (08:56)
[2018-06-08] MEDS: CARVEDILOL 12.5 MG TABLET PO SCH (08:56)
[2018-06-08] MEDS: SERTRALINE 100 MG TABLET PO SCH (08:57)
[2018-06-08] MEDS: amLODIPine 10 MG TABLET PO SCH (08:57)
[2018-06-08] MEDS: DOCUSATE SODIUM 100 MG CAPSULE PO SCH (08:57)
[2018-06-08] MEDS: SEVELAMER 800 MG TABLET PO SCH (08:58)
[2018-06-08] MEDS: TORSEMIDE 10 MG TABLET PO SCH (08:58)
[2018-06-08] MEDS: ASPIRIN 325 MG ENTERIC COATED TABLET PO SCH (08:58)
[2018-06-08] MEDS: ACYCLOVIR 400 MG TABLET PO SCH ×2 (08:59→09:03)
[2018-06-08] MEDS: GABAPENTIN 100 MG CAPSULE PO SCH (08:59)
[2018-06-08] MEDS: HYDROcodone/APAP 10/325MG TABLET PO PRN (09:01)
[2018-06-08] MEDS: HEPARIN 5,000 UNIT/ML VIAL SQ SCH (09:01)
[2018-06-08] MEDS: CEFEPIME 1 GM VIAL IV SCH (09:02)
--- NOTE | 2018-06-08 09:04 | Discharge Summary ---
Medical - DS: Prov Patient information: Note initiated : 06/08/18 at 8:57 am Service Date, if different from initiated Date: [] Patient: Jamal Blanc 52 y/o M admitted on 06/06/18 for Fever, SOB, N/V/D / Sepsis. Chief Complaint: [] Date of admission: 06/06/18 14:19 Discharge date: 06/08/18 Primary care physician: Teodora Guadarrama Consults: 06/06/18 11:40 Consult to Physician [CONS] Stat Comment: Consulting Provider: Raheem Carpio Reason For Exam: Physician to Consult 06/06/18 12:50 Consult to Physician [CONS] Stat Comment: Consulting Provider: Teodora Guadarrama Reason For Exam: Physician to Consult Medical - DS: Meds - Discharge Medications Prescriptions: Cefdinir 300 mg PO QOD@,, #3 cap Active and Home Medications: Home Medications Aspirin [Aspirin EC] 325 mg PO DAILY 03/15/17 [History Confirmed 06/06/18 Last Taken Unknown] acyclovir 400 mg tablet 400 mg PO BID tab 11/02/17 [History Confirmed 06/06/18 Last Taken Unknown] carvedilol 25 mg tablet 25 mg PO BID #60 tab 11/15/17 [Rx Confirmed 06/06/18 Last Taken Unknown] amlodipine 10 mg tablet 10 mg PO QDAY #30 tab 11/21/17 [Rx Confirmed 06/06/18 Last Taken Unknown] Dexamethasone [Decadron] 40 mg PO SA 11/25/17 [History Confirmed 06/06/18 Last Taken Unknown] Prochlorperazine Maleate [Compazine] 1 tab PO Q6HP PRN 11/25/17 [History Confirmed 06/06/18 Last Taken Unknown] hydrocodone 10 mg-acetaminophen 325 mg tablet 1 tab PO Q8H PRN tab 12/15/17 [ History Confirmed 06/06/18 Last Taken Unknown] pomalidomide 3 mg capsule 3 mg PO QDAY 12/15/17 [History Confirmed 06/06/18 Last Taken Unknown] sevelamer carbonate 800 mg tablet 800 mg PO TIDCC #150 tab 01/03/18 [Rx Confirmed 06/06/18 Last Taken Unknown] torsemide 20 mg tablet 20 mg PO BID #60 tab 01/13/18 [Rx Confirmed 06/06/18 Last Taken Unknown] gabapentin 100 mg capsule 100 mg PO BID #60 cap 03/30/18 [Rx Confirmed 06/06/18 Last Taken Unknown] Lubiprostone [Amitiza] 24 mcg PO PRN PRN 06/06/18 [History Confirmed 06/06/18 Last Taken Unknown] Sertraline [Zoloft] 100 mg PO DAILY 06/06/18 [History Confirmed 06/06/18 Last Taken Unknown] fentaNYL [Fentanyl] 75 mcg TD Q72 06/06/18 [History Confirmed 06/06/18 Last Taken Unknown] traZODone HCL [Trazodone HCl] 50 mg PO DAILY 06/06/18 [History Confirmed Last Taken Unknown] Medical - DS: Hosp Hospital course: Mr. Blanc is a 52 year old M HISTORY OF PRESENT ILLNESS: This is a 52-year-old male with end-stage renal disease, amyloidosis, and multiple myeloma who noted that while he was helping a family member bring in tools, he said he was short of breath. He just felt like he could not get a deep breath. He has a chronic cough but does not state that the cough was worse than usual. He says his girlfriend had a cold recently. Otherwise, no other sick contacts. He became increasingly weak, fatigued and then noticed on Tuesday that he had a fever, went in for dialysis Tuesday and had several liters off. He says he did not notice any significant improvement in shortness of breath. He was noted to have a fever of 100.8 in the ER. He was sent in by risk consulting treasury director. In the ER, he had vital signs showing a temperature of 100.8, mildly tachycardic, tachypneic. He was put on oxygen to keep his sats mid-90s. I do not have any recorded low oxygen saturations. I am not sure what it was prior to putting on the oxygen. When he came in to the ER it was initially 94% on room air. He had a chest x-ray which showed some what was felt to be some patchy airspace disease related to either pulmonary edema or atypical infection. In the ER was also noted to have an elevated procalcitonin. He complains of headache. He has not had this type of scenario in the past where he has had this shortness of breath. He had no cough that is above baseline but just feels weak, fatigued and feverish and more short of breath. Given his SIRS criteria and source of infection, questionable pulmonary source resulting in sepsis and his immunosuppressed state and end-stage renal disease, the patient was thus admitted. Course: Patient continued on broad-spectrum antibiotics. His pro calcitonin improved. Edema on chest x-ray improved. Over the course of his breathing significantly improved her to feel much better received dialysis while inpatient. patient doing well stable for discharge Discharge diagnosis: Fever, suspect pulmonary - Time Spent with Patient Total time spent providing and/or coordinating discharge services: Greater than 30 minutes Medical - DS: Exam - Constitutional Vitals: Vital Signs Temp Pulse Pulse Resp BP BP Pulse Ox 06/08/18 03:52 98.8 F 18 156/71 92 06/08/18 00:00 98.6 F 16 167/92 93 06/07/18 20:09 98.6 F 18 157/73 93 06/07/18 20:00 80 06/07/18 18:31 99.3 F H 76 18 167/77 93 06/07/18 18:01 83 173/65 95 06/07/18 17:13 100.3 F H 82 18 163/70 93 06/07/18 17:01 100.7 F H 84 16 156/70 95 06/07/18 16:31 99 F 83 16 165/73 93 06/07/18 16:01 98.7 F 86 16 163/68 90 06/07/18 15:31 82 149/55 96 06/07/18 15:27 98.8 F 85 20 158/61 93 06/07/18 15:12 98.9 F 82 18 137/92 95 06/07/18 14:05 172/69 06/07/18 13:58 150/66 06/07/18 13:56 98.6 F 73 150/66 06/07/18 13:31 169/69 06/07/18 13:30 74 169/69 06/07/18 13:06 71 149/71 06/07/18 13:01 149/71 06/07/18 12:33 72 155/66 06/07/18 12:31 155/66 06/07/18 12:02 70 172/76 06/07/18 12:01 172/76 06/07/18 12:00 98.5 F 20 175/72 94 06/07/18 11:55 98.5 F 20 175/72 94 06/07/18 11:29 70 175/72 06/07/18 11:03 71 167/66 06/07/18 10:30 98.3 F 67 180/85 Intake and Output 06/07/18 06/08/18 06/08/18 21:59 05:59 13:59 Intake Total 2070 / 2070 360 / 360 Output Total 450 / 450 Balance 1620 / 1620 360 / 360 Intake: IV 330 / 330 Vancomycin 1,000 mg In Sodium 250 / 250 Chloride 0.9% 250 ml @ 250 mls/ hr IV ONCE ONE Rx#:[id number] Oral 1080 / 1080 360 / 360 Blood Product 660 / 660 Output: Void Amount 450 / 450 Other: Meal Dinner Percent of Meal Consumed 75% Feeding Ability Independent # Voids 1 Weight 161 lb 12.8 oz Medical - DS: Data Labs on day of discharge: Labs from last 24 hours 06/08/18 06/08/18 06/08/18 03:45 03:45 03:45 WBC 4.9 RBC 2.87 L Hgb 9.3 L Hct 28.2 L MCV 98.2 MCH 32.5 MCHC 33.1 RDW 19.9 H Plt Count 321 MPV 7.9 Gran % 55.2 Lymph % (Auto) 15.4 L [place] % (Auto) 19.3 H Eos % (Auto) 9.2 H Baso % (Auto) 0.9 Gran # 2.7 Lymph # (Auto) 0.8 L [place] # (Auto) 0.9 Eos # (Auto) 0.4 Baso # (Auto) 0 Sodium 132 L Potassium 3.9 Chloride 94 L Carbon Dioxide 28 Anion Gap 10.0 BUN 17 Creatinine 3.1 H GFR Calculation 22 Glucose 87 Calcium 7.7 L Procalcitonin 1.92 Random Vancomycin Vancomycin Dose Vanco Last Dose Time 06/07/18 06/07/18 14:30 14:30 WBC 4.4 L RBC 2.75 L Hgb 9.1 L Hct 27.6 L MCV 100.4 H MCH 33.3 MCHC 33.2 RDW 18.5 H Plt Count 384 MPV 7.8 Gran % 56.8 Lymph % (Auto) 19.5 [place] % (Auto) 13.2 H Eos % (Auto) 9.8 H Baso % (Auto) 0.7 Gran # 2.5 Lymph # (Auto) 0.9 L [place] # (Auto) 0.6 Eos # (Auto) 0.4 Baso # (Auto) 0 Sodium Potassium Chloride Carbon Dioxide Anion Gap BUN Creatinine GFR Calculation Glucose Calcium Procalcitonin Random Vancomycin 8.3 Vancomycin Dose Not Reportable Vanco Last Dose Time Not Reportable Preliminary micro results at discharge 06/06/18 09:35 Blood Culture - Preliminary Blood 06/06/18 09:13 Blood Culture - Preliminary Blood Medical - DS: A/P - Patient/Caregiver Discharge Instructions Activity: increase activity as tolerated Diet: Renal - Follow up Plan Follow up with: Teodora Guadarrama MD [Primary Care Provider] - (Continue your current dialysis schedule with Dr. Guadarrama.) John Wlils MD [Physician] - 06/21/18 11:30 am Disposition: Home, Self-Care Prognosis: Serious Rehab Potential: Fair
[2018-06-09] MEDS ORDERED: fentaNYL 75 MCG PATCH TOPICAL SCH (10:00)
[2018-06-10] MEDS ORDERED: DEXAMETHASONE 4 MG TABLET PO SCH ×2 (08:00→13:07)
== END 2018-06-08 11:19 | disposition home or self-care (01) | DRG 871 ==
LOC: ED 08:57 → ICU 14:19
PROVIDERS: ADMIT Internal Medicine; ATTEND Internal Medicine